=== PATIENT | male | born 1935 | race Caucasian/White ===

== ENCOUNTER 2016-10-18 10:40 | Emergency (ER) | payer MEDICARE ==
--- NOTE | 2016-10-18 11:10 | ERPHSYRPT ---
- History of Present Illness Time Seen by Provider: 10/18/16 11:06 Source: patient Exam Limitations: no limitations Physician History: 81-year-old white male with history of CVA hyperlipidemia atherosclerotic coronary artery disease and arthritis who is on blood thinners. Arrives with complaint of a laceration/possible skin tear to his right forearm occurred yesterday at 2:00 in the afternoon. Patient apparently was mowing that he put his arm up to block a branch and he received a laceration. He apparently lives at assisted living he states that it made put a dressing on the area right forearm he arrives with 2 large dressings on the right forearm which aren't tinted with blood but are not dripping. He has full range of motion to all of his extremities she does state he has chronic weakness of the right arm because of CVA he also has a history of arthritis and right shoulder surgery. Past medical history includes coronary vascular accident, hyperlipidemia, atherosclerotic coronary artery disease, arthritis Past surgical history includes right shoulder surgery CABG cataracts Occurred: yesterday (yesterday at 2:00 in the afternoon) Method of Injury: other (patient was mowing put his arm up to block branches and lacerated his arm) Quality: other (minimal pain) Severity of Pain-Max: none Severity of Pain-Current: none Extremities Pain Location: forearm: right Modifying Factors: Improves With: other (patient had dressing placed by aid yesterday at assisted living patient with the blood soaked dressing and assisted living staff reluctant to remove dressing today secondary to patient being on anticoagulants) Associated Symptoms: other (laceration /skin tear right forearm) Allergies/Adverse Reactions: No Known Drug Allergies Allergy (Verified 11/03/15 16:15) Home Medications: Aspirin 81 gm Chew [Baby Aspirin 81 mg Chew] 81 mg PO DAILY 06/10/14 [ History] Clopidogrel Bisulfate 75 mg [PLAVIX 75 MG Tablet] 75 mg PO DAILY 06/10/14 [History] Gabapentin [Neurontin] 300 mg PO TID 06/10/14 [History] Glyburide 5 mg [Micronase 5 MG] 5 mg PO DAILY 06/10/14 [History] Metoprolol Succinate 50 mg [Toprol Xl 50 MG] 25 mg PO BID 06/10/14 [ History] Simvastatin 20 mg PO DAILY 06/10/14 [History] Melatonin/Pyridoxine [Melatonin 3 mg Tablet] 3 mg PO HS 07/29/14 [History] Losartan Potassium [Cozaar] 25 mg PO DAILY 11/03/15 [History] Oxybutynin Chloride Xl 5 mg [Ditropan XL 5 MG] 5 mg PO BID 11/03/15 [ History] Pantoprazole Sodium [Protonix] 20 mg PO DAILY 11/03/15 [History] Tamsulosin HCl [Flomax] 0.4 mg PO UD 11/03/15 [History] Hx Tetanus, Diphtheria Vaccination/Date Given: Yes Hx Influenza Vaccination/Date Given: Yes Hx Pneumococcal Vaccination/Date Given: No - Review of Systems Constitutional: No Fever, No Chills Eyes: No Symptoms Ears, Nose, & Throat: No Symptoms Respiratory: No Cough, No Dyspnea Cardiac: No Chest Pain, No Edema, No Syncope Abdominal/Gastrointestinal: No Abdominal Pain, No Nausea, No Vomiting, No Diarrhea Genitourinary Symptoms: No Dysuria Musculoskeletal: Injury (patient with 6 cm skin tear /abrasion right proximal anterior forearm), No Arthralgias, No Back Pain, No Neck Pain, No Deformity, No Fall, No Joint Redness, No Joint Pain, No Joint Swelling, No Myalgias Skin: Other (6 cm skin tear/abrasion right proximal forearm), No Cellulitis, No Decubiti, No Induration, No Pruritis, No Rash, No Skin Lesions, No Dryness Neurological: No Dizziness, No Focal Weakness, No Sensory Changes Psychological: No Symptoms Endocrine: No Symptoms All Other Systems: Reviewed and Negative - Past Medical History Pertinent Past Medical History: Yes Neurological History: Stroke ENT History: Cataracts Cardiac History: High Cholesterol Respiratory History: No Pertinent History Endocrine Medical History: Diabetes Type II Musculoskeletal History: Arthritis GI Medical History: No Pertinent History History: No Pertinent History Psycho-Social History: No Pertinent History Male Reproductive Disorders: No Pertinent History - Past Surgical History Past Surgical History: Yes Neuro Surgical History: No Pertinent History Cardiac: CABG Respiratory: No Pertinent History Gastrointestinal: No Pertinent History Genitourinary: No Pertinent History Musculoskeletal: Orthopedic Surgery Male Surgical History: No Pertinent History Other Surgical History: R SHOULDER SURGERY, hip - Social History Smoking Status: Never smoker Exposure to second hand smoke: No Drug Use: none Patient Lives Alone: No - Nursing Vital Signs Nursing Vital Signs: Initial Vital Signs Temperature 99.2 F Temperature Source Oral Pulse Rate 61 Respiratory Rate 20 Blood Pressure [Left Arm] 164/61 Pain Intensity 0 - Physical Exam General Appearance: alert Eyes, Ears, Nose, Throat Exam: moist mucous membranes Neck Exam: non-tender, supple Cardiovascular/Respiratory Exam: chest non-tender Abdominal Exam: non-tender, No guarding Back Exam: normal inspection, No vertebral tenderness Elbow/Forearm Exam: normal inspection, non-tender, no evidence of injury, normal ROM, abrasions (6 cm skin tear/abrasion right proximal forearm had been previously dressed area cleaned wound edges approximated no erythema mild surrounding ecchymosis, radial and ulnar pulses equal and symmetrical 2/4 cardroom attendant equal and symmetrical 5/5 full range of motion right arm elbow wrist fingers good capillary refill all fingers sensation intact to all fingers) Wrist Exam: normal inspection, non-tender, no evidence of injury, normal ROM Hand Exam: normal inspection, non-tender, no evidence of injury, normal ROM Neuro/Tendon Exam: normal sensation, normal motor functions Mental Status Exam: alert, oriented x 3, cooperative Skin Exam: normal color, other (6 cm skin tear /abrasion right proximal forearm with surrounding ecchymosis area is not hot no drainage edges of wound approximated) SpO2 Interpretation: normal - Course Nursing assessment & vital signs reviewed: Yes Ordered Tests: Active Orders 24 hr Category Date Time Status Wound Care STAT Care 10/18/16 11:25 Active Medication Summary Discontinued Medications Generic Name Dose Route Start Last Admin Trade Name Freq PRN Reason Stop Dose Admin Bacitracin 0.9 gm 10/18/16 11:25 Baciguent Packet TP 10/18/16 11:26 STAT ONE Diphtheria/Tetanus/Acell Pertussis 0.5 ml 10/18/16 11:25 Adacel Vial IM 10/18/16 11:26 .ONCE ONE Diphtheria/Tetanus/Acell Pertussis Confirm 10/18/16 11:27 Adacel Vial Administered 10/18/16 11:28 Dose 0.5 ml IM .STK-MED ONE - Progress Progress: improved Progress Note: 10/18/16 11:20 This is a 81-year-old white male who was mowing yesterday and put his arm up to push branches out of the way. He has a 6 cm skin tear/abrasion to his right proximal forearm which was cleansed and dressing was applied by aides at the assisted living. Today he was noted to have blood which had saturated his dressing and staff at his assisted living were reluctant to remove dressing secondary to the patient being on blood thinners and they were afraid of bleeding. Patient's wound is examined he has a 6 cm /skin tear/abrasion on his right proximal forearm wound edges appear to be approximated and do not move easily. The wound is clean there is no signs of infection and there is no to minimal bleeding Will have nurse clean the patient's skin tear/abrasion on his right forearm apply bacitracin and dressing. Will uptake patient's DTaP. Will plan to have patient discharged went to be cleansed and bacitracin and Telfa dressing applied daily until healed. Patient is to follow-up with his family doctor. - Departure Time of Disposition: 11:23 Departure Disposition: Home Clinical Impression: Skin tear of right forearm without complication Qualifiers: Encounter type: initial encounter Qualified Code(s): S51.811A - Laceration without foreign body of right forearm, initial encounter Condition: Fair Critical Care Time: No Referrals: SAHARA TRIANA MD [Primary Care Provider] - Instructions: Care for a Laceration After Repair Additional Instructions: Return to assisted living. Skin tear to be cleanse, bacitracin and Telfa dressing applied daily until healed. Follow-up with your family doctor. Return for acute distress or for severe symptoms.
[2016-10-18] MEDS ORDERED: BACIGUENT PACKET TP ONE (11:25)
[2016-10-18] MEDS ORDERED: Adacel Vial IM ONE ×2 (11:25→11:27)
[2016-10-18 11:32] VITALS: O2SAT 98
[2016-10-18 11:54] VITALS: BP 162/48; PULSE 65
== END 2016-10-18 11:50 | disposition home or self-care (01) ==
LOC: ED 10:40
DX: S01.81XA Laceration without foreign body of other part of head, initial encounter (principal); W22.8XXA Striking against or struck by other objects, initial encounter; Y93.H2 Activity, gardening and landscaping; Z79.01 Long term (current) use of anticoagulants; E78.00 Pure hypercholesterolemia, unspecified; E11.9 Type 2 diabetes mellitus without complications; Z79.899 Other long term (current) drug therapy
CPT/HCPCS: 90471; 90715; 99282; A9270-GY

== ENCOUNTER 2017-05-04 12:34 | Observation (INO) | payer MEDICARE ==
[2017-05-04] MEDS ORDERED: Sodium Chloride 0.9% 1000 ML 1,000 ML IV STA (13:04)
[2017-05-04 13:14] LABS: BASOPHIL % 0.3 % (0.0-0.4); Eosinophil % 0.4 % (0.00-5.0); Granulocytes % 82.7 % (36.0-66.0); Lymphocytes % 11.5 % (24.0-44.0); Mean Cell Volume 90.1 fl (78-100); Mean Corpuscular Hemoglobin 30.3 pg (26-32); Mean Platelet Volume 11.5 fl (6-9.5); Monocytes % 5.1 % (0.0-12.0); Platelet Count 172 K/mm3 (150-450); Red Blood Count 5.58 M/mm3 (4.1-5.6); Red Cell Distribution Width 13.4 % (11.5-14.0); White Blood Count 9.2 K/mm3 (4.0-10.5)
--- NOTE | 2017-05-04 13:24 | ERPHSYRPT ---
- History of Present Illness Time Seen by Provider: 05/04/17 12:38 Source: patient, family (daughter) Exam Limitations: no limitations Patient Subjective Stated Complaint: pt states he has not been eating well, not able to swallow pills, weak, daughter states he has been fighting a virus for a week now, Triage Nursing Assessment: pt alert, resp easy, skin w.d pink,chest clear, coughing up green sputum Physician History: patient progressive deterioration 10-14 days; increased wekness; decreased appetite and activity; no feeling well; refusing meds; can swallow but doesn't want to take meds; cough non-productive; no travel; in a NH; wt loss Timing/Duration: week(s) (2), gradual onset, worse Severity: severe Modifying Factors: Worsens With: eating Associated Symptoms: loss of appetite, malaise, weakness Allergies/Adverse Reactions: No Known Drug Allergies Allergy (Verified 05/04/17 12:49) Home Medications: Aspirin 81 gm Chew [Baby Aspirin 81 mg Chew] 81 mg PO DAILY 06/10/14 [ History] Clopidogrel Bisulfate 75 mg [PLAVIX 75 MG Tablet] 75 mg PO DAILY 06/10/14 [History] Glyburide 5 mg [Micronase 5 MG] 5 mg PO DAILY 06/10/14 [History] Metoprolol Succinate 50 mg [Toprol Xl 50 MG] 25 mg PO BID 06/10/14 [ History] Simvastatin 20 mg PO DAILY 06/10/14 [History] Losartan Potassium [Cozaar] 25 mg PO DAILY 11/03/15 [History] Oxybutynin Chloride Xl 5 mg [Ditropan XL 5 MG] 5 mg PO BID 11/03/15 [ History] Pantoprazole Sodium [Protonix] 20 mg PO DAILY 11/03/15 [History] Gabapentin [Gabapentin] 300 mg TID 05/04/17 [History] Hx Tetanus, Diphtheria Vaccination/Date Given: Yes Hx Influenza Vaccination/Date Given: Yes Hx Pneumococcal Vaccination/Date Given: Yes Immunizations Up to Date: Yes - Review of Systems Constitutional: Malaise, Weakness, Weight Loss, No Fever, No Chills Eyes: No Symptoms Ears, Nose, & Throat: No Symptoms Respiratory: Cough, No Dyspnea, No Wheezing Cardiac: No Chest Pain, No Edema, No Palpitations, No Syncope Abdominal/Gastrointestinal: Nausea, No Abdominal Pain, No Vomiting, No Diarrhea , No Constipation Genitourinary Symptoms: No Symptoms Musculoskeletal: Arthralgias, No Back Pain, No Neck Pain, No Fall, No Injury, No Joint Pain Skin: No Symptoms Neurological: No Focal Weakness, No Headache, No Seizure, No Vertigo Psychological: No Symptoms Endocrine: Cold Intolerance, No Excessive Sweating, No Goiter Hematologic/Lymphatic: No Symptoms Immunological/Allergic: No Symptoms - Past Medical History Pertinent Past Medical History: Yes Neurological History: Stroke ENT History: Cataracts Cardiac History: High Cholesterol Respiratory History: No Pertinent History Endocrine Medical History: Diabetes Type II Musculoskeletal History: Arthritis GI Medical History: No Pertinent History History: No Pertinent History Psycho-Social History: No Pertinent History Male Reproductive Disorders: No Pertinent History - Past Surgical History Past Surgical History: Yes Neuro Surgical History: No Pertinent History Cardiac: CABG Respiratory: No Pertinent History Gastrointestinal: No Pertinent History Genitourinary: No Pertinent History Musculoskeletal: Orthopedic Surgery Male Surgical History: No Pertinent History Other Surgical History: R SHOULDER SURGERY, hip - Social History Smoking Status: Never smoker Exposure to second hand smoke: Yes Alcohol Use: None Drug Use: none Patient Lives Alone: No Significant Family History: no pertinent family hx - Nursing Vital Signs Nursing Vital Signs: Initial Vital Signs Temperature 97.9 F 05/04/17 12:42 Pulse Rate 87 05/04/17 12:42 Respiratory Rate 18 05/04/17 12:42 Blood Pressure 191/90 05/04/17 12:42 O2 Sat by Pulse Oximetry 97 05/04/17 12:42 Pain Scale Pain Intensity 0 - Physical Exam General Appearance: mild distress, alert, thin (almost cachectic) Eye Exam: PERRL/EOMI, eyes nml inspection, No photophobia Ears, Nose, Throat Exam: TMs normal, pharynx normal, dry mucous membranes, No tonsillar exudate Neck Exam: normal inspection, non-tender, supple, full range of motion, No meningismus, No carotid bruit, No JVD, No lymphadenopathy Respiratory Exam: normal breath sounds, lungs clear, airway intact, No respiratory distress, No crackles/rales, No rhonchi, No wheezing Cardiovascular Exam: regular rate/rhythm, normal heart sounds, normal peripheral pulses, capillary refill 2-3 sec, No murmur Gastrointestinal/Abdomen Exam: soft, normal bowel sounds, No tenderness, No guarding, No pulsatile mass, No rebound, No organomegaly Male Genitalia Exam: normal genitalia Rectal Exam: deferred Back Exam: normal inspection, normal range of motion, No CVA tenderness Extremity Exam: normal inspection, normal range of motion, No rivera's sign, No pedal edema Neurologic Exam: alert, oriented x 3, cooperative, peoplesoft crm developer II-XII nml as tested, normal mood/affect, sensation nml, No nml cerebellar function (too weak), No nml station & gait (too weak) Skin Exam: warm, dry, pale, other (poor tugor), No normal color, No rash, No petechiae Lymphatic Exam: No adenopathy SpO2 Interpretation: normal SpO2: 97 Oxygen Delivery: Room Air - Course Nursing assessment & vital signs reviewed: Yes EKG Interpreted by Me: RATE (77), Sinus Rhythm, NORMAL AXIS, NORMAL INTERVALS, NORMAL QRS, Non-specific ST Changes, Other (compared to 02/02/17) Rhythm Strip: Rate (76), Normal Sinus Rhythm - Radiology Exams Chest X-ray Interpretation: Reviewed by me, Teleradiologist Report, Negative Ordered Tests: Active Orders 24 hr Category Date Time Status Up With Assistance ROUTINE Activity 05/04/17 16:00 Ordered Admission/Status Order ROUTINE Care 05/04/17 16:00 Ordered Call Admit Doctor for Orders ON ADMISSION Care 05/04/17 16:01 Ordered Care Management Coordinator STAT Care 05/04/17 13:02 Active Code Status Order ROUTINE Care 05/04/17 16:00 Ordered EKG-ER Only STAT Care 05/04/17 13:02 Active Fall Protocol ROUTINE Care 05/04/17 16:01 Ordered IV Care Q6H Care 05/04/17 16:00 Ordered IV Insertion STAT Care 05/04/17 13:02 Active Orthostatic Vital Signs STAT Care 05/04/17 13:14 Active Edu Rivas, Apply ROUTINE Care 05/04/17 16:00 Ordered Telemetry ROUTINE Care 05/04/17 16:00 Ordered Weight,Daily 0600 Care 05/04/17 16:00 Ordered Cardiac Diet Diet 05/04/17 Dinner Ordered CHEST 1 VIEW (PORTABLE) Stat Exams 05/04/17 13:03 Completed BLOOD CULTURE Stat Lab 05/04/17 12:55 Received CBC W DIFF Stat Lab 05/04/17 13:18 Completed CMP Stat Lab 05/04/17 13:18 Completed CULTURE,URINE Stat Lab 05/04/17 15:00 Received Lactic Acid Stat Lab 05/04/17 13:33 Completed Lactic Acid Stat Lab 05/04/17 15:45 Completed MAGNESIUM Stat Lab 05/04/17 13:18 Completed NT PRO BNP Stat Lab 05/04/17 13:18 Completed PROTIME WITH INR Stat Lab 05/04/17 13:18 Completed TROPONIN Q3H Lab 05/04/17 13:18 Completed TROPONIN Q3H Lab 05/04/17 16:15 Ordered TROPONIN Q3H Lab 05/04/17 19:15 Ordered TROPONIN Q3H Lab 05/04/17 22:15 Ordered TROPONIN Q3H Lab 05/05/17 01:15 Ordered UA W/ MICROSCOPIC Stat Lab 05/04/17 15:00 Completed Transfer Order Routine Transfer 05/04/17 Ordered Medication Summary Generic Name Dose Route Start Last Admin Trade Name Freq PRN Reason Stop Dose Admin Sodium Chloride 1,000 mls @ 100 mls/hr 05/04/17 13:15 05/04/17 14:05 Sodium Chloride 0.9% 1000 Ml IV 06/03/17 13:14 999 mls/hr .Q10H POOJA Infusion Sodium Chloride 1,000 mls @ 250 mls/hr 05/04/17 13:04 05/04/17 13:46 Sodium Chloride 0.9% 1000 Ml IV 05/04/17 17:03 999 mls/hr .Q4H STA Infusion Lab/Rad Data: Laboratory Result Diagrams 05/04/17 13:18 05/04/17 13:18 Laboratory Results 05/04/17 05/04/17 05/04/17 Range/Units 15:45 15:00 13:33 WBC (4.0-10.5) K/mm3 RBC (4.1-5.6) M/mm3 Hgb (12.5-18.0) gm/dl Hct (42-50) % MCV (78-100) fl MCH (26-32) pg MCHC (32-36) g/dl RDW (11.5-14.0) % Plt Count (150-450) K/mm3 MPV (6-9.5) fl Gran % (36.0-66.0) % Lymphocytes % (24.0-44.0) % Monocytes % (0.0-12.0) % Eosinophils % (0.00-5.0) % Basophils % (0.0-0.4) % Basophils # (0-0.4) INR (0.8-3.0) Sodium (136-145) mEq/L Potassium (3.5-5.1) mEq/L Chloride (98-107) mEq/L Carbon Dioxide (21-32) mEq/L Anion Gap (5-15) MEQ/L BUN (9-20) mg/dL Creatinine (0.55-1.30) mg/dl Estimated GFR ML/MIN Glucose (70-110) MG/DL Lactic Acid 1.4 2.0 (0.4-2.0) Calcium (8.5-10.1) mg/dL Magnesium (1.8-2.4) mg/dL Total Bilirubin (0.2-1.0) mg/dL AST (15-37) U/L ALT (12-78) U/L Alkaline Phosphatase (46-116) U/L Troponin I (0.000-0.056) ng/ml NT-Pro-B Natriuret Pep (0-450) pg/ml Serum Total Protein (6.4-8.2) gm/dL Albumin (3.4-5.0) g/dL Ur Collection Type VOID Urine Color YELLOW (YELLOW) Urine Appearance CLEAR (CLEAR) Urine pH 2 (5-6) Ur Specific [place] 1.020 (1.005-1.025) Urine Protein 36+ (Negative) Urine Ketones MODERATE (NEGATIVE) Urine Blood 50 (0-5) Rai/ul Urine Nitrite NEGATIVE (NEGATIVE) Urine Bilirubin NEGATIVE (NEGATIVE) Urine Urobilinogen NORMAL (0-1) mg/dL Ur Leukocyte Esterase TRACE (NEGATIVE) Urine Microscopic RBC 0-2 (0-2) /HPF Urine Microscopic WBC 0-2 (0-5) /HPF Ur Epithelial Cells RARE (FEW) /HPF Urine Bacteria FEW (NEGATIVE) /HPF Urine Culture Reflexed YES (NO) Urine Glucose 100 (NEGATIVE) mg/dL Influenza Type A Ag (NEGATIVE) Influenza Type B Ag (NEGATIVE) RSV (PCR) (Negative) Specimen Received 05/01/17 1510 05/04/17 05/04/17 05/04/17 Range/Units 13:18 13:18 13:18 WBC (4.0-10.5) K/mm3 RBC (4.1-5.6) M/mm3 Hgb (12.5-18.0) gm/dl Hct (42-50) % MCV (78-100) fl MCH (26-32) pg MCHC (32-36) g/dl RDW (11.5-14.0) % Plt Count (150-450) K/mm3 MPV (6-9.5) fl Gran % (36.0-66.0) % Lymphocytes % (24.0-44.0) % Monocytes % (0.0-12.0) % Eosinophils % (0.00-5.0) % Basophils % (0.0-0.4) % Basophils # (0-0.4) INR 1.27 (0.8-3.0) Sodium (136-145) mEq/L Potassium (3.5-5.1) mEq/L Chloride (98-107) mEq/L Carbon Dioxide (21-32) mEq/L Anion Gap (5-15) MEQ/L BUN (9-20) mg/dL Creatinine (0.55-1.30) mg/dl Estimated GFR ML/MIN Glucose (70-110) MG/DL Lactic Acid (0.4-2.0) Calcium (8.5-10.1) mg/dL Magnesium (1.8-2.4) mg/dL Total Bilirubin (0.2-1.0) mg/dL AST (15-37) U/L ALT (12-78) U/L Alkaline Phosphatase (46-116) U/L Troponin I < 0.017 (0.000-0.056) ng/ml NT-Pro-B Natriuret Pep (0-450) pg/ml Serum Total Protein (6.4-8.2) gm/dL Albumin (3.4-5.0) g/dL Ur Collection Type Urine Color (YELLOW) Urine Appearance (CLEAR) Urine pH (5-6) Ur Specific [place] (1.005-1.025) Urine Protein (Negative) Urine Ketones (NEGATIVE) Urine Blood (0-5) Rai/ul Urine Nitrite (NEGATIVE) Urine Bilirubin (NEGATIVE) Urine Urobilinogen (0-1) mg/dL Ur Leukocyte Esterase (NEGATIVE) Urine Microscopic RBC (0-2) /HPF Urine Microscopic WBC (0-5) /HPF Ur Epithelial Cells (FEW) /HPF Urine Bacteria (NEGATIVE) /HPF Urine Culture Reflexed (NO) Urine Glucose (NEGATIVE) mg/dL Influenza Type A Ag NEGATIVE (NEGATIVE) Influenza Type B Ag NEGATIVE (NEGATIVE) RSV (PCR) NEGATIVE (Negative) Specimen Received 05/04/17 05/04/17 Range/Units 13:18 13:18 WBC 9.2 (4.0-10.5) K/mm3 RBC 5.58 (4.1-5.6) M/mm3 Hgb 16.9 (12.5-18.0) gm/dl Hct 50.3 H (42-50) % MCV 90.1 (78-100) fl MCH 30.3 (26-32) pg MCHC 33.6 (32-36) g/dl RDW 13.4 (11.5-14.0) % Plt Count 172 (150-450) K/mm3 MPV 11.5 H (6-9.5) fl Gran % 82.7 H (36.0-66.0) % Lymphocytes % 11.5 L (24.0-44.0) % Monocytes % 5.1 (0.0-12.0) % Eosinophils % 0.4 (0.00-5.0) % Basophils % 0.3 (0.0-0.4) % Basophils # 0.03 (0-0.4) INR (0.8-3.0) Sodium 142 (136-145) mEq/L Potassium 4.3 (3.5-5.1) mEq/L Chloride 105 (98-107) mEq/L Carbon Dioxide 24.8 (21-32) mEq/L Anion Gap 16.9 H (5-15) MEQ/L BUN 23 H (9-20) mg/dL Creatinine 1.75 H (0.55-1.30) mg/dl Estimated GFR 40 ML/MIN Glucose 177 H (70-110) MG/DL Lactic Acid (0.4-2.0) Calcium 9.8 (8.5-10.1) mg/dL Magnesium 1.9 (1.8-2.4) mg/dL Total Bilirubin 1.10 H (0.2-1.0) mg/dL AST 24 (15-37) U/L ALT 19 (12-78) U/L Alkaline Phosphatase 75 (46-116) U/L Troponin I (0.000-0.056) ng/ml NT-Pro-B Natriuret Pep 467 H (0-450) pg/ml Serum Total Protein 7.7 (6.4-8.2) gm/dL Albumin 4.0 (3.4-5.0) g/dL Ur Collection Type Urine Color (YELLOW) Urine Appearance (CLEAR) Urine pH (5-6) Ur Specific [place] (1.005-1.025) Urine Protein (Negative) Urine Ketones (NEGATIVE) Urine Blood (0-5) Rai/ul Urine Nitrite (NEGATIVE) Urine Bilirubin (NEGATIVE) Urine Urobilinogen (0-1) mg/dL Ur Leukocyte Esterase (NEGATIVE) Urine Microscopic RBC (0-2) /HPF Urine Microscopic WBC (0-5) /HPF Ur Epithelial Cells (FEW) /HPF Urine Bacteria (NEGATIVE) /HPF Urine Culture Reflexed (NO) Urine Glucose (NEGATIVE) mg/dL Influenza Type A Ag (NEGATIVE) Influenza Type B Ag (NEGATIVE) RSV (PCR) (Negative) Specimen Received reviewed - Progress Progress: improved (with fluids), re-examined (after fluids and lab) Progress Note: 05/04/17 13:24 OSVS show OS hypotension needs assistance and became symptomatic; will give IV fluid bolus and recheck; FSBS 149; gave patietn 6 oz water and drank ok with straw. 05/04/17 13:41 rechecked after first 250 cc bolus and doing ok; lungs clear; no sob or jvd will continue fluid bolus; EKG; cbc lactate and CXR ok; daughter at bedside; will recheck and monitor 05/04/17 14:31 BS up 177; BUN up 23 and Cr at 1.75; lytes ok; T Bili up 1.10; pBNP = 467 anion gap 16.9; tolerating IV gfluid bolus; awaiting labs and ua 05/04/17 15:57 Dr Brenner consulted and will admit to OBs for further hydration and evaluation; patient and family notified and concur Discussed with : Jordin (consulted and will admit to obs) Will see patient in: hospital (observation) Counseled pt/family regarding: lab results, diagnosis, need for follow-up, rad results - Departure Time of Disposition: 15:58 Departure Disposition: Observation Clinical Impression: Orthostatic hypotension, Dehydration Condition: Serious Critical Care Time: No Referrals: SAHARA TRIANA MD [Primary Care Provider] - ADRIÁN BRENNER [ACTIVE STAFF] -
--- NOTE | 2017-05-04 13:34 | XRAY ---
Indication: Cough and weakness. Comparison: November 26, 2016. Portable chest remains clear with a few incidental calcified granulomas. Heart and mediastinal structures within normal limits again with previous CABG surgery. Bony thorax intact again with mild degenerative changes. Impression: Stable nonacute chest with chronic features.
[2017-05-04 13:43] LABS: INR 1.27 (0.8-3.0); PROTIME 14.2 SECONDS (8.83-12.87)
[2017-05-04 13:59] LABS: ANION GAP 16.9 MEQ/L (5-15); BILIRUBIN,TOTAL 1.1 mg/dL (0.2-1.0); Carbon Dioxide 24.8 mEq/L (21-32); MAGNESIUM 1.9 mg/dL (1.8-2.4); Potassium 4.3 mEq/L (3.5-5.1); Total Protein 7.7 gm/dL (6.4-8.2)
[2017-05-04] MEDS: Sodium Chloride 0.9% 1000 ML 1,000 ML IV SCH (14:00)
[2017-05-04 15:52] LABS: Blood 50 Ery/ul (0-5); Collection Type VOID; Leukocyte Esterase TRACE (NEGATIVE)
[2017-05-04 15:53] LABS: ADD URINE CULTURE? YES (NO); Bacteria FEW /HPF (NEGATIVE); COMPLETE URINE MICROSCOPIC? YES; Epithelial Cells RARE /HPF (FEW); WBC 0-2 /HPF (0-5)
[2017-05-04] MEDS ORDERED: Sodium Chloride 0.9% 1000 ML 1,000 ML IV SCH (16:00)
[2017-05-04] MEDS ORDERED: TYLENOL 325 MG PO PRN (20:21)
[2017-05-04] MEDS ORDERED: Ditropan 5 MG ONE (20:51)
[2017-05-04] MEDS: Ditropan XL 5 MG PO SCH (22:16)
[2017-05-04] MEDS: ZOCOR 20MG PO SCH (22:16)
[2017-05-04] MEDS: NEURONTIN 300 MG PO SCH (22:16)
[2017-05-04] MEDS: Protonix 40MG Tablet PO SCH (22:16)
[2017-05-05] MEDS: Sodium Chloride 0.9% 1000 ML 1,000 ML IV SCH ×2 (02:58→13:25)
--- NOTE | 2017-05-05 09:09 | PCM.HP ---
History of Present Illness - Chief Complaint Chief Complaint: ORTHOSTATIC HYPOTENSION, DEHYDRATION, RENAL FAILURE History of Present Illness: is a 81 year old male who lives in assisted living who has progressively been more weak and had poor po intake, was having swallowing difficulty. he had been refusing meds, having nonproductive cough. - Review of Systems Constitutional: No Fever, No Chills Respiratory: Cough, No Short Of Breath Cardiac: No Chest Pain, No Edema, No Syncope Abdominal/Gastrointestinal: No Abdominal Pain, No Nausea, No Vomiting, No Diarrhea Skin: No Rash All Other Systems: Reviewed and Negative Medications & Allergies Home Medications: Home Medication List Aspirin 81 gm Chew [Baby Aspirin 81 mg Chew] 81 mg PO DAILY 06/10/14 [ History Confirmed 05/04/17] Clopidogrel Bisulfate 75 mg [PLAVIX 75 MG Tablet] 75 mg PO DAILY 06/10/14 [History Confirmed 05/04/17] Glyburide 5 mg [Micronase 5 MG] 5 mg PO DAILY 06/10/14 [History Confirmed 05/04/17] Metoprolol Succinate 50 mg [Toprol Xl 50 MG] 25 mg PO BID 06/10/14 [ History Confirmed 05/04/17] Simvastatin 20 mg PO DAILY 06/10/14 [History Confirmed 05/04/17] Losartan Potassium [Cozaar] 25 mg PO DAILY 11/03/15 [History Confirmed 05/04/17] Oxybutynin Chloride Xl 5 mg [Ditropan XL 5 MG] 5 mg PO BID 11/03/15 [ History Confirmed 05/04/17] Pantoprazole Sodium [Protonix] 40 mg PO BID 11/03/15 [History Confirmed 05/04/17 ] Acetaminophen 325 mg [Tylenol 325 mg] 650 mg PO Q4HPRN PRN 05/04/17 [ History Confirmed 05/04/17] Gabapentin [Gabapentin] 300 mg PO TID 05/04/17 [History Confirmed 05/04/17] Allergies/Adverse Reactions: Allergies Allergy/AdvReac Type Severity Reaction Status Date / Time No Known Drug Allergies Allergy Verified 05/04/17 12:49 - Past Medical History Past Medical History: Yes Neurological History: Stroke ENT History: Cataracts Cardiac History: High Cholesterol, Hypertension Respiratory History: No Pertinent History Endocrine Medical History: Diabetes Type II Musculoskelatal History: Arthritis GI Medical History: No Pertinent History History: No Pertinent History Pyscho-Social History: No Pertinent History Male Reproductive Disorders: No Pertinent History - Past Surgical History Past Surgical History: Yes Neuro Surgical History: No Pertinent History Cardiac History: CABG Respiratory Surgery: No Pertinent History GI Surgical History: No Pertinent History Genitourinary Surgical Hx: No Pertinent History Musculskeletal Surgical Hx: Orthopedic Surgery Male Surgical History: No Pertinent History Other Surgical History: R SHOULDER SURGERY, LEFT hip - Social History Smoking Status: Never smoker Exposure to second hand smoke: No Alcohol: None Drug Use: none Significant Family History: no pertinent family hx - Physical Exam Vital Signs: Vital Signs - 24 hr Temp Pulse Resp BP Pulse Ox 05/05/17 07:32 98.4 F 72 18 187/86 96 05/05/17 04:10 98.0 F 73 15 155/72 94 L 05/05/17 00:10 98.8 F 80 16 154/76 94 L 05/04/17 20:00 98.5 F 71 12 175/83 97 05/04/17 17:49 98.4 F 76 18 189/85 97 05/04/17 17:19 98.4 F 76 18 189/85 97 05/04/17 17:09 98.4 F 76 18 189/85 97 05/04/17 16:30 98.4 F 76 18 189/85 97 05/04/17 16:02 97 05/04/17 15:40 98.4 F 76 18 189/85 97 05/04/17 14:52 80 14 165/75 97 05/04/17 13:59 78 20 172/91 97 05/04/17 13:41 78 18 166/104 99 05/04/17 13:30 74 22 149/86 97 05/04/17 12:42 97.9 F 87 18 191/90 97 General Appearance: no apparent distress, alert, thin (frail) Respiratory Exam: normal breath sounds, lungs clear, No respiratory distress Cardiovascular Exam: regular rate/rhythm, normal heart sounds, normal peripheral pulses Gastrointestinal/Abdomen Exam: soft, normal bowel sounds, No tenderness, No mass Extremity Exam: normal inspection, normal range of motion, pelvis stable Skin Exam: normal color, warm, dry, No rash Results - Labs Lab/Micro Results: Lab Results-Last 24 Hours 05/04/17 05/04/17 Range/Units 19:05 22:15 Troponin I 0.019 0.021 (0.000-0.056) ng/ml Assessment/Plan (1) Orthostatic hypotension Current Visit: Yes Status: Acute Assessment & Plan: symptoms improved, patient feeling better today. Code(s): I95.1 - ORTHOSTATIC HYPOTENSION (2) Dehydration Current Visit: Yes Status: Acute Assessment & Plan: feeling better, will repeat labs in the am, if continues to eat well and have no symptoms may be able to discharge home tomorrow Code(s): E86.0 - DEHYDRATION
[2017-05-05] MEDS ORDERED: BABY ASPIRIN 81 MG CHEW PO SCH (10:00)
[2017-05-05] MEDS: NEURONTIN 300 MG PO SCH ×3 (10:51→21:49)
[2017-05-05] MEDS: Ditropan XL 5 MG PO SCH ×2 (10:51→21:50)
[2017-05-05] MEDS: PLAVIX 75 MG Tablet PO SCH (10:51)
[2017-05-05] MEDS: Micronase 5 MG PO SCH (10:51)
[2017-05-05] MEDS: ECOTRIN 81 MG PO SCH (10:52)
[2017-05-05] MEDS: Protonix 40MG Tablet PO SCH ×2 (10:52→21:50)
[2017-05-05] MEDS: ZOCOR 20MG PO SCH (21:50)
[2017-05-06 05:44] VITALS: O2SAT 96
[2017-05-06 06:06] LABS: BASOPHIL % 0.1 % (0.0-0.4); Eosinophil % 1.4 % (0.00-5.0); Granulocytes % 70.3 % (36.0-66.0); Lymphocytes % 20.9 % (24.0-44.0); Mean Cell Volume 89.5 fl (78-100); Mean Corpuscular Hemoglobin 29.9 pg (26-32); Mean Platelet Volume 11.3 fl (6-9.5); Monocytes % 7.3 % (0.0-12.0); Platelet Count 149 K/mm3 (150-450); Red Blood Count 5.25 M/mm3 (4.1-5.6); Red Cell Distribution Width 13.2 % (11.5-14.0); White Blood Count 7.4 K/mm3 (4.0-10.5)
[2017-05-06 06:16] LABS: ANION GAP 13.6 MEQ/L (5-15); Carbon Dioxide 26.4 mEq/L (21-32); Potassium 3.7 mEq/L (3.5-5.1)
[2017-05-06 07:23] VITALS: BP 140/72; PULSE 113
--- NOTE | 2017-05-06 07:58 | PCM.NOTE ---
Date and Time: 05/06/17 0757 Subjective Assessment: patient reports some improvement in his symptoms, still profoundly weak but eating and drinking. Objective Exam General Appearance: no apparent distress, alert Skin Exam: normal color, warm, dry Respiratory Exam: normal breath sounds, lungs clear, No respiratory distress Cardiovascular Exam: regular rate/rhythm, normal heart sounds Gastrointestinal/Abdomen Exam: soft, No tenderness, No mass Extremity Exam: normal inspection, normal range of motion OBJECTIVE DATA Vital Signs: Vital Signs - 24 hr Temp Pulse Resp BP Pulse Ox 05/06/17 07:21 97.9 F 113 H 18 140/72 96 05/06/17 04:00 97.8 F 65 14 147/70 96 05/06/17 00:15 97.4 F 56 L 14 132/60 95 05/05/17 20:00 97.9 F 58 L 20 116/66 97 05/05/17 16:00 97.6 F 54 L 18 149/70 97 05/05/17 11:03 97.3 F 57 L 18 143/68 96 Pain Assessment - Last Documented Pain Intensity 0 Pain Scale Used 0-10 Pain Scale Intake and Output: Intake & Output 05/03/17 05/04/17 05/05/17 05/06/17 11:59 11:59 11:59 11:59 Intake Total 1528 3443 Output Total 450 500 Balance 1078 2943 Weight 69.201 kg 69.4 kg Lab Results: Lab Results-Last 24 Hours 05/06/17 05/06/17 Range/Units 05:16 05:16 WBC 7.4 (4.0-10.5) K/mm3 RBC 5.25 (4.1-5.6) M/mm3 Hgb 15.7 (12.5-18.0) gm/dl Hct 47.0 (42-50) % MCV 89.5 (78-100) fl MCH 29.9 (26-32) pg MCHC 33.4 (32-36) g/dl RDW 13.2 (11.5-14.0) % Plt Count 149 L (150-450) K/mm3 MPV 11.3 H (6-9.5) fl Gran % 70.3 H (36.0-66.0) % Lymphocytes % 20.9 L (24.0-44.0) % Monocytes % 7.3 (0.0-12.0) % Eosinophils % 1.4 (0.00-5.0) % Basophils % 0.1 (0.0-0.4) % Basophils # 0.01 (0-0.4) Sodium 145 (136-145) mEq/L Potassium 3.7 (3.5-5.1) mEq/L Chloride 109 H (98-107) mEq/L Carbon Dioxide 26.4 (21-32) mEq/L Anion Gap 13.6 (5-15) MEQ/L BUN 20 (9-20) mg/dL Creatinine 1.43 H (0.55-1.30) mg/dl Estimated GFR 50 ML/MIN Glucose 55 L (70-110) MG/DL Calcium 9.2 (8.5-10.1) mg/dL Assessment/Plan (1) Orthostatic hypotension Current Visit: Yes Status: Acute Assessment & Plan: bp stable at this time Code(s): I95.1 - ORTHOSTATIC HYPOTENSION (2) Dehydration Current Visit: Yes Status: Acute Assessment & Plan: improved with hydration Code(s): E86.0 - DEHYDRATION
[2017-05-06] MEDS: Sodium Chloride 0.9% 1000 ML 1,000 ML IV SCH (09:36)
[2017-05-06] MEDS: PLAVIX 75 MG Tablet PO SCH (09:40)
[2017-05-06] MEDS: NEURONTIN 300 MG PO SCH (09:40)
[2017-05-06] MEDS: ECOTRIN 81 MG PO SCH (09:40)
[2017-05-06] MEDS: Ditropan XL 5 MG PO SCH (09:40)
[2017-05-06] MEDS: Protonix 40MG Tablet PO SCH (09:41)
[2017-05-06] MEDS: Micronase 5 MG PO SCH (10:38)
== END 2017-05-06 11:05 | disposition home health service (06) ==
LOC: ED 12:34 → MED SURG 17:00
PROVIDERS: ADMIT Family Medicine; ATTEND Family Medicine
DX: I95.1 Orthostatic hypotension (principal); E86.0 Dehydration; I10 Essential (primary) hypertension; Z86.73 Personal history of transient ischemic attack (TIA), and cerebral infarction without residual deficits; E11.9 Type 2 diabetes mellitus without complications; M19.90 Unspecified osteoarthritis, unspecified site; Z79.899 Other long term (current) drug therapy
CPT/HCPCS: 36000; 36415; 71010; 80048; 80053; 81000; 82962; 83605; 83735; 83880; 84484; 85025; 85610; 87040; 87086; 87631; 93005; 93041; 99285; G0378; A9270-GY

== ENCOUNTER 2017-07-15 17:50 | Emergency (ER) | payer MEDICARE ==
[2017-07-15 18:11] VITALS: O2SAT 97
[2017-07-15 19:40] LABS: BASOPHIL % 0.3 % (0.0-0.4); Basophil (Absolute #) 0.02 (0-0.4); Eosinophil % 1.2 % (0.00-5.0); Eosinophil (Absolute #) 0.09 (0-0.5); Granulocyte Absolute (ANC) 5.54 (1.4-6.9); Granulocytes % 72.3 % (36.0-66.0); Hematocrit 47.5 % (42-50); Lymphocyte (Absolute #) 1.52 (1.0-4.6); Lymphocytes % 19.9 % (24.0-44.0); Mean Cell Volume 91.2 fl (78-100); Mean Corpuscular Hemoglobin 30.7 pg (26-32); Mean Corpuscular Hgb Concent. 33.7 g/dl (32-36); Mean Platelet Volume 11.3 fl (6-9.5); Monocyte (Absolute #) 0.48 (0.0-1.3); Monocytes % 6.3 % (0.0-12.0); Platelet Count 159 K/mm3 (150-450); Red Blood Count 5.21 M/mm3 (4.1-5.6); Red Cell Distribution Width 13.3 % (11.5-14.0); White Blood Count 7.7 K/mm3 (4.0-10.5)
[2017-07-15 19:56] LABS: Appearance CLEAR (CLEAR); Bilirubin NEGATIVE (NEGATIVE); Blood NEGATIVE Ery/ul (0-5); Glucose 100 mg/dL (NEGATIVE); Ketones NEGATIVE (NEGATIVE); Leukocyte Esterase NEGATIVE (NEGATIVE); Nitrite NEGATIVE (NEGATIVE); Protein,Urine Dip 30 (Negative); Urobilinogen NORMAL mg/dL (0-1)
[2017-07-15 20:00] LABS: INR 1.18 (0.8-3.0)
[2017-07-15 20:01] LABS: Bacteria RARE /HPF (NEGATIVE); Epithelial Cells FEW /HPF (FEW); WBC 0-2 /HPF (0-5)
[2017-07-15 20:03] LABS: PTT 35.7 SECONDS (24.1-36.1)
[2017-07-15 20:05] LABS: ALBUMIN 4.1 g/dl (3.5-5.0); ANION GAP 15.7 MEQ/L (5-15); BILIRUBIN,TOTAL 0.6 mg/d? (0.2-1.3); Calcium 9.7 mg/dL (8.4-10.2); Creatinine 1 1.65 mg/dl (0.66-1.25); Potassium 4.4 mmol/L (3.5-5.1)
--- NOTE | 2017-07-15 20:29 | ERPHSYRPT ---
- History of Present Illness Time Seen by Provider: 07/15/17 18:36 Source: patient, family (daughter), EMS Patient Subjective Stated Complaint: stated he always has pain/numbness in right side HX CVA 14 years ago. while walking down to dining hunter at [facility] the pain got so bad in his right leg that he couldn't walk any further. 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 resp easy, c/o pain 11/16 Physician History: CC: pain right side of body Hx: 81 y/o patient of Dr Triana. He was in the hospital in April for dehydration and has not fully recovered. Remote old stroke causing chronic right sided weakness. 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 He uses a walker at Assisted Living. He was going to supper and felt worsened pain in the right side from his big toe to his right shoulder. No chest or back pain. He had to rest. They NH thought he had numbness in the right side so sent him in the ambulance. He really denies new weakness and is unsure about numbness. Mostly had pain which is now gone. Mild headache. Feels better now. No fall or injury. Timing/Duration: today (before supper) Allergies/Adverse Reactions: No Known Drug Allergies Allergy (Verified 05/04/17 12:49) Home Medications: Aspirin 81 gm Chew [Baby Aspirin 81 mg Chew] 81 mg PO DAILY 06/10/14 [ History] Clopidogrel Bisulfate 75 mg [PLAVIX 75 MG Tablet] 75 mg PO DAILY 06/10/14 [History] Metoprolol Succinate 50 mg [Toprol Xl 50 MG] 25 mg PO BID 06/10/14 [ History] Simvastatin 20 mg PO DAILY 06/10/14 [History] Losartan Potassium [Cozaar] 25 mg PO DAILY 11/03/15 [History] Oxybutynin Chloride Xl 5 mg [Ditropan XL 5 MG] 5 mg PO BID 11/03/15 [ History] Pantoprazole Sodium [Protonix] 40 mg PO BID 11/03/15 [History] Acetaminophen 325 mg [Tylenol 325 mg] 650 mg PO Q4HPRN PRN 05/04/17 [ History] Gabapentin 300 mg PO TID 05/04/17 [History] Hx Tetanus, Diphtheria Vaccination/Date Given: Yes Hx Influenza Vaccination/Date Given: Yes Hx Pneumococcal Vaccination/Date Given: Yes Immunizations Up to Date: Yes - Review of Systems Constitutional: Weakness, No Fever, No Chills Eyes: No Symptoms Ears, Nose, & Throat: No Symptoms Respiratory: No Cough, No Dyspnea Cardiac: No Chest Pain Abdominal/Gastrointestinal: No Abdominal Pain, No Nausea, No Vomiting Genitourinary Symptoms: No Dysuria Skin: No Rash Neurological: Focal Weakness (chronic right sided since prior stroke unchange), Headache (mild), Parasthesia (?), No Dizziness All Other Systems: Reviewed and Negative - Past Medical History Pertinent Past Medical History: Yes Neurological History: Stroke ENT History: Cataracts Cardiac History: High Cholesterol, Hypertension Respiratory History: No Pertinent History Endocrine Medical History: Diabetes Type II Musculoskeletal History: Arthritis GI Medical History: No Pertinent History History: No Pertinent History Psycho-Social History: No Pertinent History Male Reproductive Disorders: No Pertinent History - Past Surgical History Past Surgical History: Yes Neuro Surgical History: No Pertinent History Cardiac: CABG Respiratory: No Pertinent History Gastrointestinal: No Pertinent History Genitourinary: No Pertinent History Musculoskeletal: Orthopedic Surgery Male Surgical History: No Pertinent History Other Surgical History: R SHOULDER SURGERY, LEFT hip - Social History Smoking Status: Never smoker Exposure to second hand smoke: No Alcohol Use: None Drug Use: none Patient Lives Alone: No Significant Family History: no pertinent family hx - Nursing Vital Signs Nursing Vital Signs: Initial Vital Signs Pulse Rate 77 07/15/17 17:50 Respiratory Rate 18 07/15/17 17:50 Blood Pressure 200/90 07/15/17 17:50 O2 Sat by Pulse Oximetry 97 07/15/17 17:50 Pain Scale Pain Intensity [] 7 Pain Intensity 7 - Physical Exam General Appearance: alert Eye Exam: PERRL/EOMI Ears, Nose, Throat Exam: moist mucous membranes Neck Exam: normal inspection, non-tender, supple Respiratory Exam: normal breath sounds Cardiovascular Exam: regular rate/rhythm Gastrointestinal/Abdomen Exam: soft, No tenderness, No distention Male Genitalia Exam: normal genitalia Back Exam: normal inspection Neurologic Exam: alert, oriented x 3, cooperative, motor deficits (right arm and leg which daughter reports stable and unchanged, right facial palsy mild,) Skin Exam: warm, dry SpO2 Interpretation: normal SpO2: 97 Oxygen Delivery: Room Air Comments: 07/15/17 20:31 no point tender except maybe foot, no swelling in the foot, no warmth, no redness - Course Nursing assessment & vital signs reviewed: Yes EKG Interpreted by Me: RATE (72), Sinus Rhythm, NORMAL AXIS, NORMAL INTERVALS ( QTc 409), NORMAL QRS, NORMAL ST-T - Radiology Exams cxr X-ray Interpretation: Reviewed by me (post sternotomy, COPD, no acute) Ordered Tests: Active Orders 24 hr Category Date Time Status Clean Catch Urine Specimen STAT Care 07/15/17 18:50 Active EKG-ER Only STAT Care 07/15/17 18:50 Active CHEST 1 VIEW (PORTABLE) Stat Exams 07/15/17 18:50 Taken HEAD WITHOUT CONTRAST [CT] Stat Exams 07/15/17 18:50 Taken CBC W DIFF Stat Lab 07/15/17 19:37 Completed CMP Stat Lab 07/15/17 19:37 Completed CULTURE,URINE Stat Lab 07/15/17 19:37 Received PROTIME WITH INR Stat Lab 07/15/17 19:37 Completed PTT Stat Lab 07/15/17 19:37 Completed UA W/ MICROSCOPIC Stat Lab 07/15/17 19:37 Completed Lab/Rad Data: Laboratory Result Diagrams 07/15/17 19:37 07/15/17 19:37 Laboratory Results 07/15/17 07/15/17 07/15/17 Range/Units 19:37 19:37 19:37 WBC 7.7 (4.0-10.5) K/mm3 RBC 5.21 (4.1-5.6) M/mm3 Hgb 16.0 (12.5-18.0) gm/dl Hct 47.5 (42-50) % MCV 91.2 (78-100) fl MCH 30.7 (26-32) pg MCHC 33.7 (32-36) g/dl RDW 13.3 (11.5-14.0) % Plt Count 159 (150-450) K/mm3 MPV 11.3 H (6-9.5) fl Gran % 72.3 H (36.0-66.0) % Lymphocytes % 19.9 L (24.0-44.0) % Monocytes % 6.3 (0.0-12.0) % Eosinophils % 1.2 (0.00-5.0) % Basophils % 0.3 (0.0-0.4) % Basophils # 0.02 (0-0.4) INR 1.18 (0.8-3.0) APTT 35.7 (24.1-36.1) SECONDS Sodium 142 (137-145) mmol/L Potassium 4.4 (3.5-5.1) mmol/L Chloride 103 (98-107) mEq/L Carbon Dioxide 28 (22-30) mmol/L Anion Gap 15.7 H (5-15) MEQ/L BUN 27 H (9-20) mg/dl Creatinine 1.65 H (0.66-1.25) mg/dl Estimated GFR 43 ML/MIN Glucose 217 H (74-106) mg/dL Calcium 9.7 (8.4-10.2) mg/dL Total Bilirubin 0.60 (0.2-1.3) mg/d? AST 21 (17-59) U/L ALT 17 (0-50) U/L Alkaline Phosphatase 85 (38-126) U/L Serum Total Protein 7.0 (6.3-8.2) mg/dl Albumin 4.1 (3.5-5.0) g/dl Ur Collection Type Urine Color (YELLOW) Urine Appearance (CLEAR) Urine pH (5-6) Ur Specific [place] (1.005-1.025) Urine Protein (Negative) Urine Ketones (NEGATIVE) Urine Blood (0-5) Rai/ul Urine Nitrite (NEGATIVE) Urine Bilirubin (NEGATIVE) Urine Urobilinogen (0-1) mg/dL Ur Leukocyte Esterase (NEGATIVE) Urine Microscopic RBC (0-2) /HPF Urine Microscopic WBC (0-5) /HPF Ur Epithelial Cells (FEW) /HPF Urine Bacteria (NEGATIVE) /HPF Urine Culture Reflexed (NO) Urine Glucose (NEGATIVE) mg/dL Specimen Received 07/15/17 Range/Units 19:37 WBC (4.0-10.5) K/mm3 RBC (4.1-5.6) M/mm3 Hgb (12.5-18.0) gm/dl Hct (42-50) % MCV (78-100) fl MCH (26-32) pg MCHC (32-36) g/dl RDW (11.5-14.0) % Plt Count (150-450) K/mm3 MPV (6-9.5) fl Gran % (36.0-66.0) % Lymphocytes % (24.0-44.0) % Monocytes % (0.0-12.0) % Eosinophils % (0.00-5.0) % Basophils % (0.0-0.4) % Basophils # (0-0.4) INR (0.8-3.0) APTT (24.1-36.1) SECONDS Sodium (137-145) mmol/L Potassium (3.5-5.1) mmol/L Chloride (98-107) mEq/L Carbon Dioxide (22-30) mmol/L Anion Gap (5-15) MEQ/L BUN (9-20) mg/dl Creatinine (0.66-1.25) mg/dl Estimated GFR ML/MIN Glucose (74-106) mg/dL Calcium (8.4-10.2) mg/dL Total Bilirubin (0.2-1.3) mg/d? AST (17-59) U/L ALT (0-50) U/L Alkaline Phosphatase (38-126) U/L Serum Total Protein (6.3-8.2) mg/dl Albumin (3.5-5.0) g/dl Ur Collection Type CCMS Urine Color YELLOW (YELLOW) Urine Appearance CLEAR (CLEAR) Urine pH 5.0 (5-6) Ur Specific [place] 1.020 (1.005-1.025) Urine Protein 30 (Negative) Urine Ketones NEGATIVE (NEGATIVE) Urine Blood NEGATIVE (0-5) Rai/ul Urine Nitrite NEGATIVE (NEGATIVE) Urine Bilirubin NEGATIVE (NEGATIVE) Urine Urobilinogen NORMAL (0-1) mg/dL Ur Leukocyte Esterase NEGATIVE (NEGATIVE) Urine Microscopic RBC 0-2 (0-2) /HPF Urine Microscopic WBC 0-2 (0-5) /HPF Ur Epithelial Cells FEW (FEW) /HPF Urine Bacteria RARE (NEGATIVE) /HPF Urine Culture Reflexed YES (NO) Urine Glucose 100 (NEGATIVE) mg/dL Specimen Received T@1945 - Progress Progress Note: 07/15/17 20:24 CT brain: kristie 7:30 PM 07/15/2017: No comps. Nonacute senile brain. 07/15/17 20:39 No sign of new stroke or injury. He has chronic pain. Better now. Walked with nurse. No specific pain. Daughter feels he has some decline since ending PT and HHC at end of Jun. She and pt are comfortable with release to assisted living. Will follow up with Dr Triana. Counseled pt/family regarding: lab results, diagnosis, need for follow-up, rad results - Departure Time of Disposition: 20:40 Departure Disposition: Home (assisted living) Clinical Impression: right sided pain, Hx of completed stroke Condition: Stable Critical Care Time: No Referrals: SAHARA TRIANA MD [ACTIVE STAFF] - Instructions: Preventing Falls in the Older Adult Additional Instructions: Follow up wtih Dr Triana. Take care not to fall. Return for problems or concerns.
[2017-07-15 20:58] VITALS: BP 152/67; PULSE 67
--- NOTE | 2017-07-16 08:37 | XRAY ---
Indication: Right-sided numbness. Multiple contiguous axial images obtained through the head without contrast. Comparison: None Age-appropriate global atrophy and mild periventricular degenerative micro-ischemia bilaterally. No acute intracranial hemorrhage, abnormal extra-axial fluid collection, or mass effect. Fourth ventricle is midline without hydrocephalus. Bony calvarium intact. Visualized paranasal sinuses and mastoid air cells are clear. Impression: Nonacute senile brain. CT DI 70.21
--- NOTE | 2017-07-16 09:08 | XRAY ---
Indication: Right-sided numbness. Comparison: May 04, 2017. Portable chest remains clear again with incidental calcified granulomas. Heart and mediastinal structures within normal limits with previous CABG surgery. Bony thorax intact again with mild degenerative changes. Impression: Stable nonacute chest with chronic features.
== END 2017-07-15 20:58 | disposition home or self-care (01) ==
LOC: ED 17:50
DX: R52 Pain, unspecified (principal); G89.29 Other chronic pain; R51 Headache; Z86.73 Personal history of transient ischemic attack (TIA), and cerebral infarction without residual deficits; Z79.01 Long term (current) use of anticoagulants; Z79.82 Long term (current) use of aspirin
CPT/HCPCS: 36415; 70450; 71045; 80053; 81000; 85025; 85610; 85730; 87086; 93005; 99284

== ENCOUNTER 2017-12-21 20:28 | Inpatient (IN) | payer MEDICARE ==
[2017-12-21] MEDS ORDERED: Sodium Chloride 0.9% 1000 ML 1,000 ML IV SCH (21:00)
--- NOTE | 2017-12-21 21:00 | ERPHSYRPT ---
- History of Present Illness Time Seen by Provider: 12/21/17 20:49 Source: patient Exam Limitations: no limitations Patient Subjective Stated Complaint: Pt arrives to ER with c/o "I'm tired". Pt has had increasing generalized weakness over past couple days to where he is less mobile. pt has been seen in past for dehydration. Saw Dr. Triana on Wednesday for sinus infection. Lives in [facility]. C/o generalized body aches from stroke 15-20 yearsa ago. Triage Nursing Assessment: Pt does not appear to be in any distress at this time with respirations easy even regular and unlabored. Physician History: 82-year-old white male arrives with complaint of fatigue, generalized weakness, nonproductive cough symptoms going on for 3 weeks. Patient's family states that he lives at assisted living and has been getting weaker and having difficulty getting out of bed. Patient does have a history of parkinsonism. He apparently had seen his family doctor 4 days ago was placed on antibiotics for sinus infection. Patient had no vomiting he states he is chronically short of breath he has generalized achiness. No nausea no vomiting he states he has problems controlling his urine. Past medical history includes parkinsonism, CVA, right-sided weakness( chronic) , hyperlipidemia, high blood pressure, diabetes type 2, cataracts, arthritis. Atherosclerotic coronary artery disease, chronic neuropathic pain Past surgical history includes CABG, orthopedic surgery with right shoulder and left hip. 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 Timing/Duration: week(s) (3 weeks) Severity: moderate Modifying Factors: Improves With: nothing Associated Symptoms: shortness of breath (chronic), cough (nonproductive), malaise, weakness, No nausea, No vomiting, No abdominal pain, No heartburn, No diaphoresis, No chills, No chest pain, No fever, No headaches, No loss of appetite, No rash, No syncope, No seizure Allergies/Adverse Reactions: No Known Drug Allergies Allergy (Verified 05/04/17 12:49) Home Medications: Aspirin 81 gm Chew [Baby Aspirin 81 mg Chew] 81 mg PO DAILY 06/10/14 [ History] Clopidogrel Bisulfate 75 mg [PLAVIX 75 MG Tablet] 75 mg PO DAILY 06/10/14 [History] Metoprolol Succinate 50 mg [Toprol Xl 50 MG] 25 mg PO BID 06/10/14 [ History] Simvastatin 20 mg PO DAILY 06/10/14 [History] Losartan Potassium [Cozaar] 25 mg PO DAILY 11/03/15 [History] Oxybutynin Chloride Xl 5 mg [Ditropan XL 5 MG] 5 mg PO BID 11/03/15 [ History] Pantoprazole Sodium [Protonix] 40 mg PO BID 11/03/15 [History] Acetaminophen 325 mg [Tylenol 325 mg] 650 mg PO Q4HPRN PRN 05/04/17 [ History] Gabapentin 300 mg PO BID 05/04/17 [History] Carbidopa/Levodopa [Carbidopa-Levodopa 25-100 Tab] 12/21/17 [History] Donepezil HCl 10 mg [Aricept 10 MG] 10 mg PO 12/21/17 [History] Melatonin 3 mg PO 12/21/17 [History] Hx Tetanus, Diphtheria Vaccination/Date Given: Yes Hx Influenza Vaccination/Date Given: Yes Hx Pneumococcal Vaccination/Date Given: Yes - Review of Systems Constitutional: Fatigue, Malaise, Weakness, No Fever, No Chills, No Lethargy, No Weight Loss Eyes: No Symptoms Ears, Nose, & Throat: No Symptoms Respiratory: Cough (nonproductive cough), No Cyanosis, No Dyspnea, No Dyspnea on Exertion ([place]), No Stridor, No Wheezing Cardiac: No Chest Pain, No Edema, No Syncope Abdominal/Gastrointestinal: No Abdominal Pain, No Nausea, No Vomiting, No Diarrhea Genitourinary Symptoms: No Dysuria Musculoskeletal: Arthralgias (chronic neuropathic pain), Myalgias Skin: No Rash Neurological: Tremors, Other (history of parkinsonism) Psychological: No Symptoms Endocrine: No Symptoms All Other Systems: Reviewed and Negative - Past Medical History Pertinent Past Medical History: Yes Neurological History: Stroke ENT History: Cataracts Cardiac History: High Cholesterol, Hypertension Respiratory History: No Pertinent History Endocrine Medical History: Diabetes Type II Musculoskeletal History: Arthritis GI Medical History: No Pertinent History History: No Pertinent History Psycho-Social History: No Pertinent History Male Reproductive Disorders: No Pertinent History Other Medical History: Parkinsons - Past Surgical History Past Surgical History: Yes Neuro Surgical History: No Pertinent History Cardiac: CABG Respiratory: No Pertinent History Gastrointestinal: No Pertinent History Genitourinary: No Pertinent History Musculoskeletal: Orthopedic Surgery Male Surgical History: No Pertinent History Other Surgical History: R SHOULDER SURGERY, LEFT hip - Social History Smoking Status: Never smoker Exposure to second hand smoke: No Alcohol Use: None Drug Use: none Patient Lives Alone: No Significant Family History: no pertinent family hx - Nursing Vital Signs Nursing Vital Signs: Initial Vital Signs Temperature 97.8 F 12/21/17 20:36 Pulse Rate 68 12/21/17 20:36 Respiratory Rate 18 12/21/17 20:36 Blood Pressure 212/93 12/21/17 20:36 O2 Sat by Pulse Oximetry 98 12/21/17 20:36 Pain Scale Pain Intensity 7 - Physical Exam General Appearance: other (well-developed elderly white male weak,chronic tremor right extremity) Eye Exam: PERRL/EOMI, eyes nml inspection Ears, Nose, Throat Exam: normal ENT inspection, TMs normal, pharynx normal, moist mucous membranes Neck Exam: normal inspection, non-tender, supple, full range of motion Respiratory Exam: normal breath sounds, lungs clear, No respiratory distress Cardiovascular Exam: regular rate/rhythm, normal heart sounds, normal peripheral pulses Gastrointestinal/Abdomen Exam: soft, normal bowel sounds, No tenderness, No mass Back Exam: normal inspection, normal range of motion, No CVA tenderness, No vertebral tenderness Extremity Exam: normal inspection, normal range of motion, pelvis stable Neurologic Exam: alert, oriented x 3, cooperative, 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 Compared to May 04, 2017) - Radiology Exams Chest X-ray Interpretation: Interpreted by me (cxr: s/p CABG, no acute disease process noted), No Pneumonia, No Pneumothorax Ordered Tests: Active Orders 24 hr Category Date Time Status Accucheck STAT Care 12/21/17 20:54 Active EKG-ER Only STAT Care 12/21/17 20:53 Active IV Insertion STAT Care 12/21/17 20:53 Active CHEST 1 VIEW (PORTABLE) Stat Exams 12/21/17 20:53 Taken BLOOD CULTURE Stat Lab 12/21/17 21:25 Received CBC W DIFF Stat Lab 12/21/17 21:25 Completed CMP Stat Lab 12/21/17 21:25 Completed CULTURE,URINE Stat Lab 12/21/17 21:05 Received Lactic Acid Stat Lab 12/21/17 21:20 Completed TROPONIN Q3H Lab 12/21/17 21:25 Completed TROPONIN Q3H Lab 12/22/17 00:00 Ordered TROPONIN Q3H Lab 12/22/17 03:00 Ordered TROPONIN Q3H Lab 12/22/17 06:00 Ordered TROPONIN Q3H Lab 12/22/17 09:00 Ordered UA W/ MICROSCOPIC Stat Lab 12/21/17 21:05 Completed Medication Summary Generic Name Dose Route Start Last Admin Trade Name Catrachoq PRN Reason Stop Dose Admin Sodium Chloride 1,000 mls @ 100 mls/hr 12/21/17 21:00 12/21/17 21:21 Sodium Chloride 0.9% 1000 Ml IV 01/20/18 20:59 100 mls/hr .Q10H POOJA Administration Lab/Rad Data: Laboratory Result Diagrams 12/21/17 21:25 12/21/17 21:25 Laboratory Results 12/21/17 12/21/17 12/21/17 Range/Units 21:25 21:25 21:25 WBC 8.2 (4.0-10.5) K/mm3 RBC 4.77 (4.1-5.6) M/mm3 Hgb 14.7 (12.5-18.0) gm/dl Hct 43.4 (42-50) % MCV 91.0 (78-100) fl MCH 30.8 (26-32) pg MCHC 33.9 (32-36) g/dl RDW 13.6 (11.5-14.0) % Plt Count 187 (150-450) K/mm3 MPV 11.2 H (6-9.5) fl Gran % 80.7 H (36.0-66.0) % Eos # (Auto) 0.03 (0-0.5) Absolute Lymphs (auto) 1.09 (1.0-4.6) Absolute Monos (auto) 0.45 (0.0-1.3) Lymphocytes % 13.2 L (24.0-44.0) % Monocytes % 5.5 (0.0-12.0) % Eosinophils % 0.4 (0.00-5.0) % Basophils % 0.2 (0.0-0.4) % Absolute Granulocytes 6.64 (1.4-6.9) Basophils # 0.02 (0-0.4) Sodium 142 (137-145) mmol/L Potassium 4.3 (3.5-5.1) mmol/L Chloride 103 (98-107) mmol/L Carbon Dioxide 29 (22-30) mmol/L Anion Gap 14.7 (5-15) MEQ/L BUN 26 H (9-20) mg/dL Creatinine 1.37 H (0.66-1.25) mg/dL Estimated GFR 52.9 ML/MIN Glucose 176 H (74-106) mg/dL Lactic Acid (0.4-2.0) Calcium 9.9 (8.4-10.2) mg/dL Total Bilirubin 0.70 (0.2-1.3) mg/dL AST 17 (17-59) U/L ALT 5 (0-50) U/L Alkaline Phosphatase 83 (38-126) U/L Troponin I < 0.012 (0.000-0.034) ng/mL Serum Total Protein 6.9 (6.3-8.2) g/dL Albumin 4.1 (3.5-5.0) g/dL Ur Collection Type Urine Color (YELLOW) Urine Appearance (CLEAR) Urine pH (5-6) Ur Specific [place] (1.005-1.025) Urine Protein (Negative) Urine Ketones (NEGATIVE) Urine Blood (0-5) Rai/ul Urine Nitrite (NEGATIVE) Urine Bilirubin (NEGATIVE) Urine Urobilinogen (0-1) mg/dL Ur Leukocyte Esterase (NEGATIVE) Urine Microscopic RBC (0-2) /HPF Urine Bacteria (NEGATIVE) /HPF Urine Culture Reflexed (NO) Urine Glucose (NEGATIVE) mg/dL Specimen Received 12/21/17 12/21/17 Range/Units 21:20 21:05 WBC (4.0-10.5) K/mm3 RBC (4.1-5.6) M/mm3 Hgb (12.5-18.0) gm/dl Hct (42-50) % MCV (78-100) fl MCH (26-32) pg MCHC (32-36) g/dl RDW (11.5-14.0) % Plt Count (150-450) K/mm3 MPV (6-9.5) fl Gran % (36.0-66.0) % Eos # (Auto) (0-0.5) Absolute Lymphs (auto) (1.0-4.6) Absolute Monos (auto) (0.0-1.3) Lymphocytes % (24.0-44.0) % Monocytes % (0.0-12.0) % Eosinophils % (0.00-5.0) % Basophils % (0.0-0.4) % Absolute Granulocytes (1.4-6.9) Basophils # (0-0.4) Sodium (137-145) mmol/L Potassium (3.5-5.1) mmol/L Chloride (98-107) mmol/L Carbon Dioxide (22-30) mmol/L Anion Gap (5-15) MEQ/L BUN (9-20) mg/dL Creatinine (0.66-1.25) mg/dL Estimated GFR ML/MIN Glucose (74-106) mg/dL Lactic Acid 1.2 (0.4-2.0) Calcium (8.4-10.2) mg/dL Total Bilirubin (0.2-1.3) mg/dL AST (17-59) U/L ALT (0-50) U/L Alkaline Phosphatase (38-126) U/L Troponin I (0.000-0.034) ng/mL Serum Total Protein (6.3-8.2) g/dL Albumin (3.5-5.0) g/dL Ur Collection Type void Urine Color YELLOW (YELLOW) Urine Appearance CLEAR (CLEAR) Urine pH 5.0 (5-6) Ur Specific [place] 1.020 (1.005-1.025) Urine Protein 100 (Negative) Urine Ketones NEGATIVE (NEGATIVE) Urine Blood TRACE NON-HEM (0-5) Rai/ul Urine Nitrite NEGATIVE (NEGATIVE) Urine Bilirubin NEGATIVE (NEGATIVE) Urine Urobilinogen NORMAL (0-1) mg/dL Ur Leukocyte Esterase NEGATIVE (NEGATIVE) Urine Microscopic RBC 0-2 (0-2) /HPF Urine Bacteria RARE (NEGATIVE) /HPF Urine Culture Reflexed YES (NO) Urine Glucose NEGATIVE (NEGATIVE) mg/dL Specimen Received 12-21 - Progress Progress: improved Progress Note: 12/21/17 22:18 This is an 82-year-old white male with history of CVA, and her chronic neuropathic pain, Parkinson's, chronic right-sided weakness, hyperlipidemia, high blood pressure, diabetes type 2, cataracts, arthritis, atherosclerotic coronary artery disease. He arrives with complaint of 3 weeks of weakness he states he's had some mild shortness of breath she has chronic also has had a cough nonproductive. He states he has chronic pain he has no chest pain. He basically states he is very weak and he is unable to get up and around he cannot take care of himself he lives at assisted living at [facility]. On physical examination patient is somewhat weak in appearance he is alert oriented 3 he has chronic tremor past noted in his right upper extremity He is able to move all extremities. He has no acute neurologic deficits on neurologic exam lungs are clear heart is regular blood pressure is noted to be elevated at 212/93 this was rechecked and found to be 191/73 last blood pressure is noted to be clinically significant with him 138/74 patient's temp is 98.7 pulse is 68 respirations 18 oxygen saturations are within normal limits. Patient's labs CBC White cell 8.2 hemoglobin 14.7 hematocrit 43.4 platelets 187. Chemistry sodium 142 potassium 4.3 chloride 103 bicarbonate 29 BUN 26 creatinine 1.37 glucose 176. Urinalysis is unremarkable. EKG sinus bradycardia normal EKG no acute ST or T wave changes. Chest x-ray status post CABG no acute disease process noted. Impression generalized weakness. Parkinson's. Plan I've discussed the patient's case with Dr. Davies will place patient on observation provide telemetry place patient on IV normal saline. Obtain 4 times a day Accu-Cheks, Neuro checks every 4 hours, Obtain CBC CMP in the morning, , - Departure Time of Disposition: 22:22 Departure Disposition: Observation Clinical Impression: Generalized weakness, increasing weakness, Parkinsons Condition: Fair Critical Care Time: No Referrals: SAHARA TRIANA MD [Primary Care Provider] -
[2017-12-21] MEDS ORDERED: Sodium Chloride 0.9% 1000 ML 1,000 ML ONE (21:09)
[2017-12-21 21:27] LABS: Appearance CLEAR (CLEAR); Bilirubin NEGATIVE (NEGATIVE); Glucose NEGATIVE (NEGATIVE); Ketones NEGATIVE (NEGATIVE); Leukocyte Esterase NEGATIVE (NEGATIVE); Nitrite NEGATIVE (NEGATIVE); Protein,Urine Dip 100 (Negative); Urobilinogen NORMAL mg/dL (0-1)
[2017-12-21 21:28] LABS: Blood TRACE NON-HEM Ery/ul (0-5)
[2017-12-21 21:29] LABS: RBC 0-2 /HPF (0-2)
[2017-12-21 21:30] LABS: Bacteria RARE /HPF (NEGATIVE)
[2017-12-21 21:32] LABS: BASOPHIL % 0.2 % (0.0-0.4); Basophil (Absolute #) 0.02 (0-0.4); Eosinophil % 0.4 % (0.00-5.0); Eosinophil (Absolute #) 0.03 (0-0.5); Granulocyte Absolute (ANC) 6.64 (1.4-6.9); Granulocytes % 80.7 % (36.0-66.0); Hematocrit 43.4 % (42-50); Hemoglobin 14.7 gm/dl (12.5-18.0); Lymphocyte (Absolute #) 1.09 (1.0-4.6); Lymphocytes % 13.2 % (24.0-44.0); Mean Corpuscular Hemoglobin 30.8 pg (26-32); Mean Corpuscular Hgb Concent. 33.9 g/dl (32-36); Mean Platelet Volume 11.2 fl (6-9.5); Monocyte (Absolute #) 0.45 (0.0-1.3); Monocytes % 5.5 % (0.0-12.0); Platelet Count 187 K/mm3 (150-450); Red Blood Count 4.77 M/mm3 (4.1-5.6); Red Cell Distribution Width 13.6 % (11.5-14.0); White Blood Count 8.2 K/mm3 (4.0-10.5)
[2017-12-21 21:53] LABS: ALBUMIN 4.1 g/dL (3.5-5.0); ANION GAP 14.7 MEQ/L (5-15); BILIRUBIN,TOTAL 0.7 mg/dL (0.2-1.3); Calcium 9.9 mg/dL (8.4-10.2); Creatinine 1 1.37 mg/dL (0.66-1.25); Potassium 4.3 mmol/L (3.5-5.1); Total Protein 6.9 g/dL (6.3-8.2)
[2017-12-22 03:43] LABS: BASOPHIL % 0.1 % (0.0-0.4); Basophil (Absolute #) 0.01 (0-0.4); Eosinophil % 0.3 % (0.00-5.0); Eosinophil (Absolute #) 0.03 (0-0.5); Granulocyte Absolute (ANC) 6.94 (1.4-6.9); Granulocytes % 79.8 % (36.0-66.0); Hematocrit 44.1 % (42-50); Hemoglobin 14.8 gm/dl (12.5-18.0); Lymphocyte (Absolute #) 1.17 (1.0-4.6); Lymphocytes % 13.4 % (24.0-44.0); Mean Cell Volume 91.9 fl (78-100); Mean Corpuscular Hemoglobin 30.8 pg (26-32); Mean Corpuscular Hgb Concent. 33.6 g/dl (32-36); Mean Platelet Volume 11.7 fl (6-9.5); Monocyte (Absolute #) 0.56 (0.0-1.3); Monocytes % 6.4 % (0.0-12.0); Platelet Count 178 K/mm3 (150-450); Red Cell Distribution Width 13.6 % (11.5-14.0); White Blood Count 8.7 K/mm3 (4.0-10.5)
[2017-12-22 04:10] LABS: ANION GAP 15.3 MEQ/L (5-15); BILIRUBIN,TOTAL 0.8 mg/dL (0.2-1.3); Calcium 9.8 mg/dL (8.4-10.2); Creatinine 1 1.36 mg/dL (0.66-1.25); Potassium 4.3 mmol/L (3.5-5.1)
[2017-12-22] MEDS: Sodium Chloride 0.9% 1000 ML 1,000 ML IV SCH ×3 (06:17→15:43)
--- NOTE | 2017-12-22 08:46 | PCM.HP ---
History of Present Illness - Chief Complaint Chief Complaint: generalized weakness History of Present Illness: is a 82 year old male with advanced parkinsonism who presented to the ER last night complaining of weakness and feeling poorly, he has been having difficulty ambulating and getting out of bed, profoundly weak. Was seen in the office 5 days ago and treated with IM steroid injection and po abx for sinusitis but continues to feel ill. He has had significant weight loss, decreased po intake and decreased output. - Review of Systems Constitutional: Chills, Weakness Ears, Nose, & Throat: Sinus Drainage Respiratory: Cough Cardiac: No Chest Pain, No Edema, No Syncope Genitourinary Symptoms: No Dysuria Musculoskeletal: No Injury Skin: No Rash Neurological: No Focal Weakness Psychological: No Symptoms All Other Systems: Reviewed and Negative Medications & Allergies Home Medications: Home Medication List Aspirin 81 gm Chew [Baby Aspirin 81 mg Chew] 81 mg PO DAILY 06/10/14 [ History Confirmed 12/22/17] Clopidogrel Bisulfate 75 mg [PLAVIX 75 MG Tablet] 75 mg PO DAILY 06/10/14 [History Confirmed 12/22/17] Metoprolol Succinate 50 mg [Toprol Xl 50 MG] 25 mg PO BID 06/10/14 [ History Confirmed 12/22/17] Simvastatin 20 mg PO DAILY 06/10/14 [History Confirmed 12/22/17] Losartan Potassium [Cozaar] 25 mg PO DAILY 11/03/15 [History Confirmed 12/22/17] Oxybutynin Chloride Xl 5 mg [Ditropan XL 5 MG] 5 mg PO BID 11/03/15 [ History Confirmed 12/22/17] Pantoprazole Sodium [Protonix] 40 mg PO BID 11/03/15 [History Confirmed 12/22/17 ] Acetaminophen 325 mg [Tylenol 325 mg] 650 mg PO Q4HPRN PRN 05/04/17 [ History Confirmed 12/22/17] Gabapentin 300 mg PO BID 05/04/17 [History Confirmed 12/22/17] Carbidopa/Levodopa [Carbidopa-Levodopa 25-100 Tab] 2 tab PO TID 12/21/17 [ History Confirmed 12/22/17] Donepezil HCl 10 mg [Aricept 10 MG] 5 mg PO DAILY 12/21/17 [History Confirmed 12/22/17] Allergies/Adverse Reactions: Allergies Allergy/AdvReac Type Severity Reaction Status Date / Time No Known Drug Allergies Allergy Verified 05/04/17 12:49 - Past Medical History Past Medical History: Yes Neurological History: Stroke ENT History: Cataracts Cardiac History: High Cholesterol, Hypertension Respiratory History: No Pertinent History Endocrine Medical History: Diabetes Type II Musculoskelatal History: Arthritis GI Medical History: No Pertinent History History: No Pertinent History Pyscho-Social History: No Pertinent History Male Reproductive Disorders: No Pertinent History Comment: Parkinsons - Past Surgical History Past Surgical History: Yes Neuro Surgical History: No Pertinent History Cardiac History: CABG Respiratory Surgery: No Pertinent History GI Surgical History: No Pertinent History Genitourinary Surgical Hx: No Pertinent History Musculskeletal Surgical Hx: Orthopedic Surgery Male Surgical History: No Pertinent History Other Surgical History: R SHOULDER SURGERY, LEFT hip - Social History Smoking Status: Never smoker Exposure to second hand smoke: No Alcohol: None Drug Use: none Significant Family History: no pertinent family hx - Physical Exam Vital Signs: Vital Signs - 24 hr Temp Pulse Resp BP Pulse Ox 12/22/17 07:58 98.2 F 53 L 12 191/74 93 L 12/22/17 07:46 18 12/22/17 04:00 98.3 F 62 24 165/70 95 12/22/17 01:35 97.4 F 54 L 20 154/70 96 12/22/17 00:00 20 12/21/17 23:25 93 L 12/21/17 22:23 98 12/21/17 21:31 97.8 F 54 L 191/79 96 12/21/17 20:36 97.8 F 68 18 212/93 98 Oxygen-Last 24 hours Oxygen Flowrate (L/min)-RT 95 General Appearance: alert, cachetic Neurologic Exam: alert, oriented x 3, cooperative, motor weakness (diffuse), No nml station & gait Eye Exam: PERRL/EOMI, eyes nml inspection Ears, Nose, Throat Exam: pharyngeal erythema, No moist mucous membranes Neck Exam: normal inspection, non-tender, supple, full range of motion Respiratory Exam: normal breath sounds, lungs clear, No respiratory distress Cardiovascular Exam: bradycardia Gastrointestinal/Abdomen Exam: soft, normal bowel sounds, No tenderness, No mass Extremity Exam: normal inspection, normal range of motion, pelvis stable Skin Exam: normal color, warm, dry, No rash Results - Labs Lab/Micro Results: Accuchecks Accucheck Value: 163 Lab Results-Last 24 Hours 12/21/17 12/21/17 12/21/17 Range/Units 21:05 21:20 21:25 WBC 8.2 (4.0-10.5) K/mm3 RBC 4.77 (4.1-5.6) M/mm3 Hgb 14.7 (12.5-18.0) gm/dl Hct 43.4 (42-50) % MCV 91.0 (78-100) fl MCH 30.8 (26-32) pg MCHC 33.9 (32-36) g/dl RDW 13.6 (11.5-14.0) % Plt Count 187 (150-450) K/mm3 MPV 11.2 H (6-9.5) fl Gran % 80.7 H (36.0-66.0) % Eos # (Auto) 0.03 (0-0.5) Absolute Lymphs (auto) 1.09 (1.0-4.6) Absolute Monos (auto) 0.45 (0.0-1.3) Lymphocytes % 13.2 L (24.0-44.0) % Monocytes % 5.5 (0.0-12.0) % Eosinophils % 0.4 (0.00-5.0) % Basophils % 0.2 (0.0-0.4) % Absolute Granulocytes 6.64 (1.4-6.9) Basophils # 0.02 (0-0.4) Sodium (137-145) mmol/L Potassium (3.5-5.1) mmol/L Chloride (98-107) mmol/L Carbon Dioxide (22-30) mmol/L Anion Gap (5-15) MEQ/L BUN (9-20) mg/dL Creatinine (0.66-1.25) mg/dL Estimated GFR ML/MIN Glucose (74-106) mg/dL Lactic Acid 1.2 (0.4-2.0) Calcium (8.4-10.2) mg/dL Total Bilirubin (0.2-1.3) mg/dL AST (17-59) U/L ALT (0-50) U/L Alkaline Phosphatase (38-126) U/L Troponin I (0.000-0.034) ng/mL Serum Total Protein (6.3-8.2) g/dL Albumin (3.5-5.0) g/dL Ur Collection Type void Urine Color YELLOW (YELLOW) Urine Appearance CLEAR (CLEAR) Urine pH 5.0 (5-6) Ur Specific [place] 1.020 (1.005-1.025) Urine Protein 100 (Negative) Urine Ketones NEGATIVE (NEGATIVE) Urine Blood TRACE NON-HEM (0-5) Rai/ul Urine Nitrite NEGATIVE (NEGATIVE) Urine Bilirubin NEGATIVE (NEGATIVE) Urine Urobilinogen NORMAL (0-1) mg/dL Ur Leukocyte Esterase NEGATIVE (NEGATIVE) Urine Microscopic RBC 0-2 (0-2) /HPF Urine Bacteria RARE (NEGATIVE) /HPF Urine Culture Reflexed YES (NO) Urine Glucose NEGATIVE (NEGATIVE) mg/dL Specimen Received 12-2112/21/17 12/21/17 12/22/17 Range/Units 21:25 21:25 00:25 WBC (4.0-10.5) K/mm3 RBC (4.1-5.6) M/mm3 Hgb (12.5-18.0) gm/dl Hct (42-50) % MCV (78-100) fl MCH (26-32) pg MCHC (32-36) g/dl RDW (11.5-14.0) % Plt Count (150-450) K/mm3 MPV (6-9.5) fl Gran % (36.0-66.0) % Eos # (Auto) (0-0.5) Absolute Lymphs (auto) (1.0-4.6) Absolute Monos (auto) (0.0-1.3) Lymphocytes % (24.0-44.0) % Monocytes % (0.0-12.0) % Eosinophils % (0.00-5.0) % Basophils % (0.0-0.4) % Absolute Granulocytes (1.4-6.9) Basophils # (0-0.4) Sodium 142 (137-145) mmol/L Potassium 4.3 (3.5-5.1) mmol/L Chloride 103 (98-107) mmol/L Carbon Dioxide 29 (22-30) mmol/L Anion Gap 14.7 (5-15) MEQ/L BUN 26 H (9-20) mg/dL Creatinine 1.37 H (0.66-1.25) mg/dL Estimated GFR 52.9 ML/MIN Glucose 176 H (74-106) mg/dL Lactic Acid (0.4-2.0) Calcium 9.9 (8.4-10.2) mg/dL Total Bilirubin 0.70 (0.2-1.3) mg/dL AST 17 (17-59) U/L ALT 5 (0-50) U/L Alkaline Phosphatase 83 (38-126) U/L Troponin I < 0.012 < 0.012 (0.000-0.034) ng/mL Serum Total Protein 6.9 (6.3-8.2) g/dL Albumin 4.1 (3.5-5.0) g/dL Ur Collection Type Urine Color (YELLOW) Urine Appearance (CLEAR) Urine pH (5-6) Ur Specific [place] (1.005-1.025) Urine Protein (Negative) Urine Ketones (NEGATIVE) Urine Blood (0-5) Rai/ul Urine Nitrite (NEGATIVE) Urine Bilirubin (NEGATIVE) Urine Urobilinogen (0-1) mg/dL Ur Leukocyte Esterase (NEGATIVE) Urine Microscopic RBC (0-2) /HPF Urine Bacteria (NEGATIVE) /HPF Urine Culture Reflexed (NO) Urine Glucose (NEGATIVE) mg/dL Specimen Received 12/22/17 12/22/17 12/22/17 Range/Units 03:20 03:20 03:20 WBC 8.7 (4.0-10.5) K/mm3 RBC 4.80 (4.1-5.6) M/mm3 Hgb 14.8 (12.5-18.0) gm/dl Hct 44.1 (42-50) % MCV 91.9 (78-100) fl MCH 30.8 (26-32) pg MCHC 33.6 (32-36) g/dl RDW 13.6 (11.5-14.0) % Plt Count 178 (150-450) K/mm3 MPV 11.7 H (6-9.5) fl Gran % 79.8 H (36.0-66.0) % Eos # (Auto) 0.03 (0-0.5) Absolute Lymphs (auto) 1.17 (1.0-4.6) Absolute Monos (auto) 0.56 (0.0-1.3) Lymphocytes % 13.4 L (24.0-44.0) % Monocytes % 6.4 (0.0-12.0) % Eosinophils % 0.3 (0.00-5.0) % Basophils % 0.1 (0.0-0.4) % Absolute Granulocytes 6.94 H (1.4-6.9) Basophils # 0.01 (0-0.4) Sodium 142 (137-145) mmol/L Potassium 4.3 (3.5-5.1) mmol/L Chloride 103 (98-107) mmol/L Carbon Dioxide 28 (22-30) mmol/L Anion Gap 15.3 H (5-15) MEQ/L BUN 27 H (9-20) mg/dL Creatinine 1.36 H (0.66-1.25) mg/dL Estimated GFR 53.3 ML/MIN Glucose 178 H (74-106) mg/dL Lactic Acid (0.4-2.0) Calcium 9.8 (8.4-10.2) mg/dL Total Bilirubin 0.80 (0.2-1.3) mg/dL AST 52 (17-59) U/L ALT 6 (0-50) U/L Alkaline Phosphatase 85 (38-126) U/L Troponin I < 0.012 (0.000-0.034) ng/mL Serum Total Protein 7.0 (6.3-8.2) g/dL Albumin 4.0 (3.5-5.0) g/dL Ur Collection Type Urine Color (YELLOW) Urine Appearance (CLEAR) Urine pH (5-6) Ur Specific [place] (1.005-1.025) Urine Protein (Negative) Urine Ketones (NEGATIVE) Urine Blood (0-5) Rai/ul Urine Nitrite (NEGATIVE) Urine Bilirubin (NEGATIVE) Urine Urobilinogen (0-1) mg/dL Ur Leukocyte Esterase (NEGATIVE) Urine Microscopic RBC (0-2) /HPF Urine Bacteria (NEGATIVE) /HPF Urine Culture Reflexed (NO) Urine Glucose (NEGATIVE) mg/dL Specimen Received 12/22/17 Range/Units 05:50 WBC (4.0-10.5) K/mm3 RBC (4.1-5.6) M/mm3 Hgb (12.5-18.0) gm/dl Hct (42-50) % MCV (78-100) fl MCH (26-32) pg MCHC (32-36) g/dl RDW (11.5-14.0) % Plt Count (150-450) K/mm3 MPV (6-9.5) fl Gran % (36.0-66.0) % Eos # (Auto) (0-0.5) Absolute Lymphs (auto) (1.0-4.6) Absolute Monos (auto) (0.0-1.3) Lymphocytes % (24.0-44.0) % Monocytes % (0.0-12.0) % Eosinophils % (0.00-5.0) % Basophils % (0.0-0.4) % Absolute Granulocytes (1.4-6.9) Basophils # (0-0.4) Sodium (137-145) mmol/L Potassium (3.5-5.1) mmol/L Chloride (98-107) mmol/L Carbon Dioxide (22-30) mmol/L Anion Gap (5-15) MEQ/L BUN (9-20) mg/dL Creatinine (0.66-1.25) mg/dL Estimated GFR ML/MIN Glucose (74-106) mg/dL Lactic Acid (0.4-2.0) Calcium (8.4-10.2) mg/dL Total Bilirubin (0.2-1.3) mg/dL AST (17-59) U/L ALT (0-50) U/L Alkaline Phosphatase (38-126) U/L Troponin I < 0.012 (0.000-0.034) ng/mL Serum Total Protein (6.3-8.2) g/dL Albumin (3.5-5.0) g/dL Ur Collection Type Urine Color (YELLOW) Urine Appearance (CLEAR) Urine pH (5-6) Ur Specific [place] (1.005-1.025) Urine Protein (Negative) Urine Ketones (NEGATIVE) Urine Blood (0-5) Rai/ul Urine Nitrite (NEGATIVE) Urine Bilirubin (NEGATIVE) Urine Urobilinogen (0-1) mg/dL Ur Leukocyte Esterase (NEGATIVE) Urine Microscopic RBC (0-2) /HPF Urine Bacteria (NEGATIVE) /HPF Urine Culture Reflexed (NO) Urine Glucose (NEGATIVE) mg/dL Specimen Received Accuchecks Accucheck Value: 163 - Radiology Impressions Radiology Exams & Impressions: Radiology Procedures Category Date Time Status CHEST 1 VIEW (PORTABLE) Stat Exams 12/21/17 20:53 Taken Assessment/Plan (1) Acute sinusitis Current Visit: Yes Status: Acute Assessment & Plan: will start on rocephin and add po steroid daily to current regimen, failed outpatient therapy and patient has become dehydrated and profoundly weak. Code(s): J01.90 - ACUTE SINUSITIS, UNSPECIFIED (2) Failure of outpatient treatment Current Visit: Yes Status: Acute Assessment & Plan: see HPI, failed po abx and IM steroid injection in office Code(s): Z78.9 - OTHER SPECIFIED HEALTH STATUS (3) Parkinson disease, symptomatic Current Visit: Yes Status: Acute Assessment & Plan: has advancing disease, rather end-stage. discussed higher level of care with patient and family. they are interested in rehab stay at [facility] if feasible. patient not interested in PEG tube Code(s): G20 - PARKINSON'S DISEASE (4) Dehydration Current Visit: Yes Status: Acute Assessment & Plan: replacing fluid deficit Code(s): E86.0 - DEHYDRATION (5) Difficulty swallowing Current Visit: Yes Status: Acute Assessment & Plan: has had dilation with Dr Mendoza, appears to have muscular weakness related to advanced parkinsonism, prognosis is poor Code(s): R13.10 - DYSPHAGIA, UNSPECIFIED
--- NOTE | 2017-12-22 09:06 | XRAY ---
Indication: Cough. Comparison: July 15, 2017. Portable chest remains clear again with incidental tiny calcified granulomas. Heart is not enlarged again demonstrating previous CABG surgery. Bony thorax intact again with mild degenerative changes. Impression: Stable nonacute chest with chronic features.
[2017-12-22] MEDS ORDERED: TYLENOL 325 MG PO PRN (10:05)
[2017-12-22] MEDS: Ditropan XL 5 MG PO SCH ×2 (10:17→22:00)
[2017-12-22] MEDS: ECOTRIN 81 MG PO SCH (10:17)
[2017-12-22] MEDS: Protonix 40MG Tablet PO SCH ×2 (10:17→22:01)
[2017-12-22] MEDS: PLAVIX 75 MG Tablet PO SCH (10:17)
[2017-12-22] MEDS: Cozaar 50 MG PO SCH (10:17)
[2017-12-22] MEDS: ZOCOR 20MG PO SCH (10:17)
[2017-12-22] MEDS: Aricept 10 MG PO SCH (10:18)
[2017-12-22] MEDS: DELTASONE 20 MG PO SCH (10:18)
[2017-12-22] MEDS: Sinemet 25/100 MG PO SCH ×3 (10:18→22:00)
[2017-12-22] MEDS: ROCEPHIN 1 Gm-D5w 50 ml Bag** 1 G/50 ML IVPB IV SCH (10:18)
[2017-12-22] MEDS: NEURONTIN 300 MG PO SCH ×2 (10:19→22:01)
[2017-12-22] MEDS: Toprol-Xl 25MG Tablets PO SCH ×3 (10:25→22:01)
[2017-12-22] MEDS: NovoLOG Insulin SQ PRN ×2 (16:36→21:57)
[2017-12-23] MEDS: Sodium Chloride 0.9% 1000 ML 1,000 ML IV SCH ×3 (00:49→19:23)
[2017-12-23 05:52] LABS: BASOPHIL % 0.1 % (0.0-0.4); Basophil (Absolute #) 0.01 (0-0.4); Eosinophil (Absolute #) 0 (0-0.5); Granulocyte Absolute (ANC) 12.35 (1.4-6.9); Granulocytes % 88.4 % (36.0-66.0); Hematocrit 42.4 % (42-50); Hemoglobin 14.3 gm/dl (12.5-18.0); Lymphocyte (Absolute #) 0.97 (1.0-4.6); Lymphocytes % 6.9 % (24.0-44.0); Mean Cell Volume 90.8 fl (78-100); Mean Corpuscular Hemoglobin 30.6 pg (26-32); Mean Corpuscular Hgb Concent. 33.7 g/dl (32-36); Mean Platelet Volume 11.3 fl (6-9.5); Monocyte (Absolute #) 0.64 (0.0-1.3); Monocytes % 4.6 % (0.0-12.0); Platelet Count 187 K/mm3 (150-450); Red Blood Count 4.67 M/mm3 (4.1-5.6); Red Cell Distribution Width 13.4 % (11.5-14.0)
[2017-12-23 06:08] LABS: ANION GAP 11.8 MEQ/L (5-15); BLOOD UREA NITROGEN 22 mg/dL (9-20); CHLORIDE 105 mmol/L (98-107); Calcium 9.4 mg/dL (8.4-10.2); Carbon Dioxide 28 mmol/L (22-30); Creatinine 1 1.13 mg/dL (0.66-1.25); Glucose 202 mg/dL (74-106); Potassium 4.3 mmol/L (3.5-5.1); SODIUM 140 mmol/L (137-145)
--- NOTE | 2017-12-23 08:31 | PCM.NOTE ---
Date and Time: 12/23/17 0830 Subjective Assessment: patient is feeling better, sinus congestion improving. he feels like his strength is improving and he had a bowel movement this morning. Objective Exam General Appearance: thin (frail and weak) Neurologic Exam: alert Skin Exam: normal color, warm, dry Respiratory Exam: normal breath sounds, lungs clear, No respiratory distress Cardiovascular Exam: regular rate/rhythm, normal heart sounds Gastrointestinal/Abdomen Exam: soft, No tenderness, No mass OBJECTIVE DATA Vital Signs: Vital Signs - 24 hr Temp Pulse Resp BP Pulse Ox 12/23/17 08:00 97.5 F 55 L 18 138/65 96 12/23/17 05:00 21 12/23/17 04:00 97.5 F 51 L 21 154/70 95 12/23/17 01:00 18 12/22/17 23:56 97.4 F 63 17 131/62 92 L 12/22/17 21:30 20 12/22/17 20:10 94 L 12/22/17 20:00 97.8 F 70 20 153/70 93 L 12/22/17 16:00 97.7 F 64 18 170/71 94 L 12/22/17 11:48 14 12/22/17 11:40 98.2 F 69 14 200/81 97 Pain Assessment - Last Documented Pain Intensity 5 Pain Scale Used [facility] Intake and Output: Intake & Output 12/20/17 12/21/17 12/22/17 12/23/17 11:59 11:59 11:59 11:59 Intake Total 1878 2522 Output Total 475 300 Balance 1403 2222 Weight 63.2 kg Lab Results: Accuchecks Date 12/23/17 Date 12/22/17 Date 12/22/17 Date 12/22/17 Time 07:22 Time 21:52 Time 16:34 Time 11:43 Accucheck Value: 195 Accucheck Value: 258 Accucheck Value: 222 Accucheck Value: 169 Lab Results-Last 24 Hours 12/22/17 12/22/17 12/23/17 Range/Units 09:00 Unknown 05:25 WBC 14.0 H (4.0-10.5) K/mm3 RBC 4.67 (4.1-5.6) M/mm3 Hgb 14.3 (12.5-18.0) gm/dl Hct 42.4 (42-50) % MCV 90.8 (78-100) fl MCH 30.6 (26-32) pg MCHC 33.7 (32-36) g/dl RDW 13.4 (11.5-14.0) % Plt Count 187 (150-450) K/mm3 MPV 11.3 H (6-9.5) fl Gran % 88.4 H (36.0-66.0) % Eos # (Auto) 0 (0-0.5) Absolute Lymphs (auto) 0.97 L (1.0-4.6) Absolute Monos (auto) 0.64 (0.0-1.3) Lymphocytes % 6.9 L (24.0-44.0) % Monocytes % 4.6 (0.0-12.0) % Eosinophils % 0.0 (0.00-5.0) % Basophils % 0.1 (0.0-0.4) % Absolute Granulocytes 12.35 H (1.4-6.9) Basophils # 0.01 (0-0.4) Sodium (137-145) mmol/L Potassium (3.5-5.1) mmol/L Chloride (98-107) mmol/L Carbon Dioxide (22-30) mmol/L Anion Gap (5-15) MEQ/L BUN (9-20) mg/dL Creatinine (0.66-1.25) mg/dL Estimated GFR ML/MIN Glucose (74-106) mg/dL Hemoglobin A1c 7.27 H (4.5-6.0) % Calcium (8.4-10.2) mg/dL Troponin I < 0.012 (0.000-0.034) ng/mL 12/23/17 Range/Units 05:25 WBC (4.0-10.5) K/mm3 RBC (4.1-5.6) M/mm3 Hgb (12.5-18.0) gm/dl Hct (42-50) % MCV (78-100) fl MCH (26-32) pg MCHC (32-36) g/dl RDW (11.5-14.0) % Plt Count (150-450) K/mm3 MPV (6-9.5) fl Gran % (36.0-66.0) % Eos # (Auto) (0-0.5) Absolute Lymphs (auto) (1.0-4.6) Absolute Monos (auto) (0.0-1.3) Lymphocytes % (24.0-44.0) % Monocytes % (0.0-12.0) % Eosinophils % (0.00-5.0) % Basophils % (0.0-0.4) % Absolute Granulocytes (1.4-6.9) Basophils # (0-0.4) Sodium 140 (137-145) mmol/L Potassium 4.3 (3.5-5.1) mmol/L Chloride 105 (98-107) mmol/L Carbon Dioxide 28 (22-30) mmol/L Anion Gap 11.8 (5-15) MEQ/L BUN 22 H (9-20) mg/dL Creatinine 1.13 (0.66-1.25) mg/dL Estimated GFR > 60.0 ML/MIN Glucose 202 H (74-106) mg/dL Hemoglobin A1c (4.5-6.0) % Calcium 9.4 (8.4-10.2) mg/dL Troponin I (0.000-0.034) ng/mL Radiology Exams: Radiology Procedures Category Date Time Status CHEST 1 VIEW (PORTABLE) Stat Exams 12/21/17 20:53 Completed Multi-Disciplinary Progress Notes: Multi-Disciplinary Progress Notes 12/22/17 11:00 Case Management Note by Mari Garcia REFERRAL CALLED TO [facility], SPOKE WITH [facility] ASSIST[facility]. Initialized on 12/22/17 11:00 - END OF NOTE Assessment/Plan (1) Acute sinusitis Current Visit: Yes Status: Acute Assessment & Plan: continue rocephin and prednisone, appears to be improving. Code(s): J01.90 - ACUTE SINUSITIS, UNSPECIFIED (2) Failure of outpatient treatment Current Visit: Yes Status: Acute Code(s): Z78.9 - OTHER SPECIFIED HEALTH STATUS (3) Parkinson disease, symptomatic Current Visit: Yes Status: Acute Assessment & Plan: patient not suitable to return to assisted living. awaiting e[facility] placement. Code(s): G20 - PARKINSON'S DISEASE (4) Dehydration Current Visit: Yes Status: Acute Assessment & Plan: improving. Code(s): E86.0 - DEHYDRATION (5) Difficulty swallowing Current Visit: Yes Status: Acute Code(s): R13.10 - DYSPHAGIA, UNSPECIFIED
[2017-12-23] MEDS: ROCEPHIN 1 Gm-D5w 50 ml Bag** 1 G/50 ML IVPB IV SCH (09:18)
[2017-12-23] MEDS: NEURONTIN 300 MG PO SCH ×2 (09:19→21:58)
[2017-12-23] MEDS: Toprol-Xl 25MG Tablets PO SCH ×2 (09:19→21:59)
[2017-12-23] MEDS: DELTASONE 20 MG PO SCH (09:19)
[2017-12-23] MEDS: Ditropan XL 5 MG PO SCH ×2 (09:19→21:58)
[2017-12-23] MEDS: Cozaar 50 MG PO SCH (09:19)
[2017-12-23] MEDS: PLAVIX 75 MG Tablet PO SCH (09:19)
[2017-12-23] MEDS: ZOCOR 20MG PO SCH (09:19)
[2017-12-23] MEDS: Sinemet 25/100 MG PO SCH ×3 (09:20→21:59)
[2017-12-23] MEDS: Protonix 40MG Tablet PO SCH ×2 (09:20→21:58)
[2017-12-23] MEDS: ECOTRIN 81 MG PO SCH (09:20)
[2017-12-23] MEDS: Aricept 10 MG PO SCH (09:20)
[2017-12-23] MEDS ORDERED: BABY ASPIRIN 81 MG CHEW PO SCH (10:00)
[2017-12-23] MEDS ORDERED: NON-FORMULARY ITEM (Losartan Potassium [Cozaar] 25 MG) PO SCH (10:00)
[2017-12-23] MEDS: NovoLOG Insulin SQ PRN ×2 (16:26→21:58)
[2017-12-24] MEDS: Sodium Chloride 0.9% 1000 ML 1,000 ML IV SCH ×3 (04:08→23:41)
[2017-12-24] MEDS ORDERED: NovoLOG Insulin SQ PRN (08:16)
--- NOTE | 2017-12-24 08:16 | PCM.NOTE ---
Date and Time: 12/24/17 08 patient sleeping but easily arousable, he reports he continues to feel better. strength is improving. no new complaints Objective Exam General Appearance: no apparent distress, thin Neurologic Exam: alert Skin Exam: normal color, warm, dry Respiratory Exam: normal breath sounds, lungs clear, No respiratory distress Cardiovascular Exam: regular rate/rhythm, normal heart sounds Gastrointestinal/Abdomen Exam: soft, No tenderness, No mass OBJECTIVE DATA Vital Signs: Vital Signs - 24 hr Temp Pulse Resp BP Pulse Ox 12/24/17 07:26 98.4 F 54 L 20 125/62 98 12/24/17 05:00 12 12/24/17 04:00 98.3 F 50 L 12 118/55 96 12/24/17 01:00 16 12/23/17 23:59 97.6 F 52 L 16 129/60 96 12/23/17 21:00 18 12/23/17 20:00 97.6 F 57 L 18 138/63 96 12/23/17 16:58 18 12/23/17 16:00 97.8 F 77 17 152/70 96 12/23/17 13:00 18 12/23/17 12:00 98.0 F 64 18 134/80 98 12/23/17 09:00 18 Pain Assessment - Last Documented Pain Intensity 5 Pain Scale Used 0-10 Pain Scale Intake and Output: Intake & Output 12/21/17 12/22/17 12/23/17 12/24/17 11:59 11:59 11:59 11:59 Intake Total 1878 2642 2944 Output Total 475 300 575 Balance 1403 2342 2369 Weight 63.2 kg Lab Results: Accuchecks Date 12/23/17 Date 12/23/17 Date 12/23/17 Time 21:00 Time 16:30 Time 12:18 Accucheck Value: 234 Accucheck Value: 322 Accucheck Value: 195 Assessment/Plan (1) Acute sinusitis Current Visit: Yes Status: Acute Assessment & Plan: continue levaquin, possible d/c tomorrow to [facility]. continues to improve Code(s): J01.90 - ACUTE SINUSITIS, UNSPECIFIED (2) Failure of outpatient treatment Current Visit: Yes Status: Acute Code(s): Z78.9 - OTHER SPECIFIED HEALTH STATUS (3) Parkinson disease, symptomatic Current Visit: Yes Status: Acute Code(s): G20 - PARKINSON'S DISEASE (4) Dehydration Current Visit: Yes Status: Acute Assessment & Plan: improved state of hydration Code(s): E86.0 - DEHYDRATION (5) Difficulty swallowing Current Visit: Yes Status: Acute Code(s): R13.10 - DYSPHAGIA, UNSPECIFIED
[2017-12-24] MEDS: Aricept 10 MG PO SCH (09:38)
[2017-12-24] MEDS: DELTASONE 20 MG PO SCH (09:39)
[2017-12-24] MEDS: Cozaar 50 MG PO SCH (09:39)
[2017-12-24] MEDS: Ditropan XL 5 MG PO SCH ×2 (09:39→21:19)
[2017-12-24] MEDS: ECOTRIN 81 MG PO SCH (09:39)
[2017-12-24] MEDS: PLAVIX 75 MG Tablet PO SCH (09:40)
[2017-12-24] MEDS: Protonix 40MG Tablet PO SCH ×2 (09:40→21:20)
[2017-12-24] MEDS: NEURONTIN 300 MG PO SCH ×2 (09:40→21:20)
[2017-12-24] MEDS: Sinemet 25/100 MG PO SCH ×3 (09:40→21:20)
[2017-12-24] MEDS: ZOCOR 20MG PO SCH (09:41)
[2017-12-24] MEDS: Toprol-Xl 25MG Tablets PO SCH ×2 (09:42→21:20)
[2017-12-24] MEDS: ROCEPHIN 1 Gm-D5w 50 ml Bag** 1 G/50 ML IVPB IV SCH (09:43)
[2017-12-24] MEDS: NovoLOG Insulin SQ PRN ×3 (11:34→21:19)
[2017-12-25 06:14] LABS: BLOOD UREA NITROGEN 21 mg/dL (9-20); CHLORIDE 106 mmol/L (98-107); Calcium 8.9 mg/dL (8.4-10.2); Carbon Dioxide 28 mmol/L (22-30); Creatinine 1 1.19 mg/dL (0.66-1.25); Glucose 154 mg/dL (74-106); Potassium 3.9 mmol/L (3.5-5.1); SODIUM 141 mmol/L (137-145)
[2017-12-25 06:23] LABS: BASOPHIL % 0.2 % (0.0-0.4); Basophil (Absolute #) 0.02 (0-0.4); Eosinophil % 0.1 % (0.00-5.0); Eosinophil (Absolute #) 0.01 (0-0.5); Granulocyte Absolute (ANC) 9.45 (1.4-6.9); Granulocytes % 84.8 % (36.0-66.0); Hemoglobin 13.5 gm/dl (12.5-18.0); Lymphocyte (Absolute #) 1.03 (1.0-4.6); Lymphocytes % 9.2 % (24.0-44.0); Mean Cell Volume 91.3 fl (78-100); Mean Corpuscular Hemoglobin 30.8 pg (26-32); Mean Corpuscular Hgb Concent. 33.8 g/dl (32-36); Mean Platelet Volume 11.7 fl (6-9.5); Monocyte (Absolute #) 0.64 (0.0-1.3); Monocytes % 5.7 % (0.0-12.0); Platelet Count 166 K/mm3 (150-450); Red Blood Count 4.38 M/mm3 (4.1-5.6); Red Cell Distribution Width 13.6 % (11.5-14.0); White Blood Count 11.2 K/mm3 (4.0-10.5)
[2017-12-25 08:10] VITALS: BP 160/70; PULSE 53; O2SAT 96
[2017-12-25] MEDS: ROCEPHIN 1 Gm-D5w 50 ml Bag** 1 G/50 ML IVPB IV SCH (09:37)
--- NOTE | 2017-12-25 09:38 | PCM.DS ---
Discharge Summary Date of Admission: 12/22/17 08:41 Admitting Physician: SAHARA TRIANA Primary Care Provider: SAHARA TRIANA Allergies Allergies No Known Drug Allergies Allergy (Verified 05/04/17 12:49) Hospital Summary - Hospital Course Hospital Course: patient was admitted with weakness, difficulty ambulating. had sinus infection that failed outpatient therapy. he has improved with treatment in the hospital. going to [facility] for rehab stay, his po intake has improved and he feels like his strength is improving as well. - Vitals & Intake/Output Vital Signs: Vital Signs Temperature 97.7 F 12/25/17 08:09 Pulse Rate 53 L 12/25/17 08:09 Respiratory Rate 18 12/25/17 08:09 Blood Pressure 160/70 12/25/17 08:09 O2 Sat by Pulse Oximetry 96 12/25/17 08:09 Intake & Output: Intake & Output 12/22/17 12/23/17 12/24/17 12/25/17 11:59 11:59 11:59 11:59 Intake Total 1878 2642 2944 3853 Output Total 475 300 575 100 Balance 1403 2342 2369 3753 Weight 63.2 kg 63.2 kg - Lab Result Diagrams: 12/25/17 05:25 12/25/17 05:25 Lab Results-Last 24 Hrs: Accuchecks Date 12/25/17 Date 12/24/17 Date 12/24/17 Date 12/24/17 Time 07:30 Time 23:45 Time 16:08 Time 11:38 Accucheck Value: 154 Accucheck Value: 227 Accucheck Value: 259 Accucheck Value: 237 Lab Results-Last 24 Hours 12/25/17 12/25/17 Range/Units 05:25 05:25 WBC 11.2 H (4.0-10.5) K/mm3 RBC 4.38 (4.1-5.6) M/mm3 Hgb 13.5 (12.5-18.0) gm/dl Hct 40.0 L (42-50) % MCV 91.3 (78-100) fl MCH 30.8 (26-32) pg MCHC 33.8 (32-36) g/dl RDW 13.6 (11.5-14.0) % Plt Count 166 (150-450) K/mm3 MPV 11.7 H (6-9.5) fl Gran % 84.8 H (36.0-66.0) % Eos # (Auto) 0.01 (0-0.5) Absolute Lymphs (auto) 1.03 (1.0-4.6) Absolute Monos (auto) 0.64 (0.0-1.3) Lymphocytes % 9.2 L (24.0-44.0) % Monocytes % 5.7 (0.0-12.0) % Eosinophils % 0.1 (0.00-5.0) % Basophils % 0.2 (0.0-0.4) % Absolute Granulocytes 9.45 H (1.4-6.9) Basophils # 0.02 (0-0.4) Sodium 141 (137-145) mmol/L Potassium 3.9 (3.5-5.1) mmol/L Chloride 106 (98-107) mmol/L Carbon Dioxide 28 (22-30) mmol/L Anion Gap 11.0 (5-15) MEQ/L BUN 21 H (9-20) mg/dL Creatinine 1.19 (0.66-1.25) mg/dL Estimated GFR > 60.0 ML/MIN Glucose 154 H (74-106) mg/dL Calcium 8.9 (8.4-10.2) mg/dL Micro Results-Entire Visit: Microbiology 12/21/17 21:05 Urine Culture - Final Urine, Void NO GROWTH 12/21/17 21:25 Blood Culture - Preliminary Blood NO GROWTH TO DATE 12/21/17 21:00 Blood Culture - Preliminary Blood NO GROWTH TO DATE Accuchecks Date 12/25/17 Date 12/24/17 Date 12/24/17 Date 12/24/17 Time 07:30 Time 23:45 Time 16:08 Time 11:38 Accucheck Value: 154 Accucheck Value: 227 Accucheck Value: 259 Accucheck Value: 237 - Procedures and Test Procedures and Tests throughout Hospitalization: Therapy Orders & Screens 12/22/17 02:01 OT Screen per Nursing Assess Comment: Protocol Order Physician Instructions: Greater than 3 points order OT Admission Screening Reason For Exam: Triggered on Admission Diagnosis: generalized weakness Open Wound/Cellutlitis/Pressure Ulcers: No Acute Fx/ORIF/Change in wt bearing status: No Severe MUSCULOSKELETAL pain: No ADL Dysfunction: Yes Acute CVA w/Hemiparesis/Hemiplegia: No Decreased Functional Mobility/Strength: Yes Sprain/Strain: No Acute Post-op Mobility Dysfunction: No Total Points: 4 PT Screen per Nursing Assess ONCE Comment: Protocol Order Physician Instructions: Greater than 3 points order PT Admission Screenin Reason For Exam: Triggered on Admission Diagnosis: generalized weakness Open Wound/Cellutlitis/Pressure Ulcers: No Acute Fx/ORIF/Change in wt bearing status: No Severe MUSCULOSKELETAL pain: No ADL Dysfunction: Yes Acute CVA w/Hemiparesis/Hemiplegia: No Decreased Functional Mobility/Strength: Yes Sprain/Strain: No Acute Post-op Mobility Dysfunction: No Total Points: 4 Discharge Exam General Appearance: no apparent distress, thin Neurologic Exam: alert Skin Exam: normal color, warm, dry Respiratory Exam: normal breath sounds, lungs clear, No respiratory distress Cardiovascular Exam: regular rate/rhythm, normal heart sounds Gastrointestinal/Abdomen Exam: soft, No tenderness, No mass Extremity Exam: normal inspection, normal range of motion Final Diagnosis/Problem List - Final Discharge Diagnosis/Problem (1) Acute sinusitis Current Visit: Yes Status: Acute (2) Failure of outpatient treatment Current Visit: Yes Status: Acute (3) Parkinson disease, symptomatic Current Visit: Yes Status: Acute (4) Dehydration Current Visit: Yes Status: Acute (5) Difficulty swallowing Current Visit: Yes Status: Acute - Discharge Disposition: [place] TO [facility] Condition: Fair Prescriptions: Continue Clopidogrel Bisulfate 75 mg [PLAVIX 75 MG Tablet] 75 mg PO DAILY Aspirin 81 gm Chew [Baby Aspirin 81 mg Chew] 81 mg PO DAILY Simvastatin 20 mg PO DAILY Metoprolol Succinate 50 mg [Toprol Xl 50 MG] 25 mg PO BID Oxybutynin Chloride Xl 5 mg [Ditropan XL 5 MG] 5 mg PO BID Pantoprazole Sodium [Protonix] 40 mg PO BID Losartan Potassium [Cozaar] 25 mg PO DAILY Gabapentin 300 mg PO BID Acetaminophen 325 mg [Tylenol 325 mg] 650 mg PO Q4HPRN PRN PRN Reason: Pain And/Or Fever Donepezil HCl 10 mg [Aricept 10 MG] 5 mg PO DAILY Carbidopa/Levodopa [Carbidopa-Levodopa 25-100 Tab] 2 tab PO TID Additional Instructions: [facility] ORDERS: PT/OT EVAL AND TREAT [address] ADA DIET, HONEY THICK LIQUIDS ACCU CHECK AC/HS SEE ATTACHED MED LIST FOR CURRENT MEDS DR. DUBON TO FOLLOW AT [facility]
[2017-12-25] MEDS: ZOCOR 20MG PO SCH (09:41)
[2017-12-25] MEDS: Aricept 10 MG PO SCH (09:42)
[2017-12-25] MEDS: PLAVIX 75 MG Tablet PO SCH (09:42)
[2017-12-25] MEDS: Cozaar 50 MG PO SCH (09:43)
[2017-12-25] MEDS: Toprol-Xl 25MG Tablets PO SCH (09:44)
[2017-12-25] MEDS: Sinemet 25/100 MG PO SCH (09:44)
[2017-12-25] MEDS: Ditropan XL 5 MG PO SCH (09:44)
[2017-12-25] MEDS: ECOTRIN 81 MG PO SCH (09:44)
[2017-12-25] MEDS: NEURONTIN 300 MG PO SCH (09:45)
[2017-12-25] MEDS: DELTASONE 20 MG PO SCH (09:45)
[2017-12-25] MEDS: Protonix 40MG Tablet PO SCH (09:46)
== END 2017-12-25 11:10 | DRG 153 ==
LOC: ED 20:28 → MED SURG 22:37 → OBSVTOIN 12-22 08:41
PROVIDERS: ADMIT Family Medicine; ATTEND Family Medicine
DX: J01.90 Acute sinusitis, unspecified (principal); Z78.9 Other specified health status; R53.1 Weakness; E86.0 Dehydration; R13.10 Dysphagia, unspecified; G20 Parkinson's disease; E78.5 Hyperlipidemia, unspecified; I10 Essential (primary) hypertension; E11.9 Type 2 diabetes mellitus without complications; M19.90 Unspecified osteoarthritis, unspecified site; Z95.1 Presence of aortocoronary bypass graft; Z86.73 Personal history of transient ischemic attack (TIA), and cerebral infarction without residual deficits; E78.00 Pure hypercholesterolemia, unspecified; G62.9 Polyneuropathy, unspecified; Z79.899 Other long term (current) drug therapy
CPT/HCPCS: 36000; 36415; 71045; 80048; 80053; 81000; 82962; 83036; 83605; 84484; 85025; 87040; 87086; 93005; 93268; 94760; 94762; 96360; 96374; 99285; J0696; A9270-GY; G0378

== ENCOUNTER 2018-09-03 09:23 | Observation (INO) | payer MEDICARE ==
--- NOTE | 2018-09-03 10:13 | ERPHSYRPT ---
- History of Present Illness Time Seen by Provider: 09/03/18 10:03 Source: patient Exam Limitations: no limitations Patient Subjective Stated Complaint: pt arrives per EMS, EMS reports that pt was at the breakfast table this morning when staff noticed him to be slow to respond. pt reports being weak and tired for the last 4-5 years. pt deniese pain , at this time. Triage Nursing Assessment: pt is aox3, pt answers questions appropriately, pupils perrl, afebrile, resps easy and non labored, radial pulses strong and equal, cap refill < 3 seconds, abd soft non tender, no edema appreciated. pt appears thin. skin is pale warm dry. Physician History: 83-year-old white male with history of Parkinson's, cataracts, diabetes, hyperlipidemia, arthritis, atherosclerotic coronary artery disease. Patient noted at breakfast at 8:30 AM this morning at [facility] to be slow to respond hard to arouse. Patient currently is alert and oriented he is not having any problems moving he does state he has some pain in his right flank. No chest pain no shortness of breath. Patient's daughter states that he has been being treated for dehydration lately and receiving fluids at the infusion center. Past medical history includes Parkinson's, CVA, right-sided weakness, hyperlipidemia, atherosclerotic coronary disease, high blood pressure, diabetes type 2, cataracts, arthritis,, chronic neuropathic pain. Past surgical history includes CABG, right shoulder surgery, left hip surgery Timing/Duration: today (8:30 AM) Severity: moderate Modifying Factors: Improves With: nothing Associated Symptoms: weakness, other (hard to arouse at breakfast, states he has right flank pain), No nausea, No vomiting, No abdominal pain, No shortness of breath, No heartburn, No diaphoresis, No cough, No chills, No chest pain, No fever, No headaches, No loss of appetite, No malaise, No rash, No syncope, No seizure Allergies/Adverse Reactions: No Known Drug Allergies Allergy (Verified 09/03/18 09:38) Home Medications: Aspirin 81 gm Chew [Baby Aspirin 81 mg Chew] 81 mg PO DAILY 06/10/14 [ History] Clopidogrel Bisulfate 75 mg [PLAVIX 75 MG Tablet] 75 mg PO DAILY 06/10/14 [History] Metoprolol Succinate 50 mg [Toprol Xl 50 MG] 25 mg PO BID 06/10/14 [ History] Simvastatin 20 mg PO DAILY 06/10/14 [History] Oxybutynin Chloride Xl 5 mg [Ditropan XL 5 MG] 10 mg PO BID 11/03/15 [ History] Pantoprazole Sodium [Protonix] 40 mg PO BID 11/03/15 [History] Acetaminophen 325 mg [Tylenol 325 mg] 650 mg PO Q4HPRN PRN 05/04/17 [ History] Carbidopa/Levodopa [Carbidopa-Levodopa 25-100 Tab] 2 tab PO TID 12/21/17 [ History] Docusate Sodium 100 mg [Colace 100 MG] 100 mg PO BID 08/24/18 [History] Gabapentin 300 mg PO TID 08/24/18 [History] Losartan Potassium [Cozaar] 25 mg PO DAILY 08/24/18 [History] Memantine HCl 10 mg PO DAILY 08/24/18 [History] Metformin HCl 500 mg [Glucophage 500 MG] 500 mg PO BIDWM 08/24/18 [History ] Quetiapine Fumarate 25 mg [Seroquel 25 MG] 25 mg PO BID 08/24/18 [History] Hx Tetanus, Diphtheria Vaccination/Date Given: Yes Hx Influenza Vaccination/Date Given: Yes Hx Pneumococcal Vaccination/Date Given: Yes Immunizations Up to Date: Yes - Review of Systems Constitutional: Weakness, Other (hard to arouse at breakfast), No Fever, No Chills Eyes: No Symptoms Ears, Nose, & Throat: No Symptoms Respiratory: No Cough, No Dyspnea Cardiac: No Chest Pain, No Edema, No Syncope Abdominal/Gastrointestinal: No Abdominal Pain, No Nausea, No Vomiting, No Diarrhea Genitourinary Symptoms: Flank Pain (right flank pain) Musculoskeletal: No Back Pain, No Neck Pain Skin: No Rash Neurological: No Dizziness, No Focal Weakness, No Sensory Changes Psychological: No Symptoms Endocrine: No Symptoms All Other Systems: Reviewed and Negative - Past Medical History Pertinent Past Medical History: Yes Neurological History: Stroke ENT History: Cataracts Cardiac History: High Cholesterol, Hypertension Respiratory History: No Pertinent History Endocrine Medical History: Diabetes Type II Musculoskeletal History: Arthritis GI Medical History: No Pertinent History History: No Pertinent History Psycho-Social History: No Pertinent History Male Reproductive Disorders: No Pertinent History Other Medical History: Parkinsons - Past Surgical History Past Surgical History: Yes Neuro Surgical History: No Pertinent History Cardiac: CABG Respiratory: No Pertinent History Gastrointestinal: No Pertinent History Genitourinary: No Pertinent History Musculoskeletal: Orthopedic Surgery Male Surgical History: No Pertinent History Other Surgical History: R SHOULDER SURGERY, LEFT hip - Social History Smoking Status: Never smoker Exposure to second hand smoke: No Alcohol Use: None Drug Use: none Patient Lives Alone: No Significant Family History: no pertinent family hx - Nursing Vital Signs Nursing Vital Signs: Initial Vital Signs Temperature 97.6 F 09/03/18 09:26 Pulse Rate 58 L 09/03/18 09:26 Respiratory Rate 16 09/03/18 09:26 Blood Pressure 99/55 09/03/18 09:26 O2 Sat by Pulse Oximetry 100 09/03/18 09:26 Pain Scale Pain Intensity 0 - Physical Exam General Appearance: other (elderly-appearing male alert oriented 3) Eye Exam: PERRL/EOMI, eyes nml inspection Ears, Nose, Throat Exam: normal ENT inspection Neck Exam: normal inspection, non-tender, supple, full range of motion Respiratory Exam: normal breath sounds, lungs clear, No respiratory distress Cardiovascular Exam: regular rate/rhythm, normal heart sounds, normal peripheral pulses, capillary refill <2 sec Gastrointestinal/Abdomen Exam: soft, normal bowel sounds, No tenderness, No mass Back Exam: normal inspection, normal range of motion, No CVA tenderness, No vertebral tenderness Extremity Exam: normal inspection, normal range of motion, pelvis stable Neurologic Exam: alert, oriented x 3, cooperative, 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 nml as tested, normal mood/affect, nml cerebellar function, nml station & gait, sensation nml, No motor deficits Skin Exam: normal color, warm, dry, No rash SpO2 Interpretation: normal (100%) SpO2: 100 - Course Nursing assessment & vital signs reviewed: Yes EKG Interpreted by Me: RATE (57 bpm), Sinus Tyrell, NORMAL AXIS, Other (EKG: Sinus bradycardia, 57 bpm, T wave inversions in leads 3 aVF, no ST elevation) - Radiology Exams Chest X-ray Interpretation: Interpreted by me (chest x-ray: No acute disease process noted) - CT Exams Head CT Interpretation: Tele-radiologist Report (Head CT: Impression no acute disease process noted) Ordered Tests: Active Orders 24 hr Category Date Time Status Accucheck STAT Care 09/03/18 10:10 Active EKG-ER Only STAT Care 09/03/18 10:08 Active IV Insertion STAT Care 09/03/18 10:08 Active CHEST 1 VIEW (PORTABLE) Stat Exams 09/03/18 10:08 Taken HEAD WITHOUT CONTRAST [CT] Stat Exams 09/03/18 10:10 Taken AMYLASE Stat Lab 09/03/18 09:15 Completed CBC W DIFF Stat Lab 09/03/18 09:15 Completed CMP Stat Lab 09/03/18 09:15 Completed LIPASE Stat Lab 09/03/18 09:15 Completed TROPONIN Q3H Lab 09/03/18 09:15 Completed TROPONIN Q3H Lab 09/03/18 13:15 Ordered TROPONIN Q3H Lab 09/03/18 16:15 Ordered TROPONIN Q3H Lab 09/03/18 19:15 Ordered TROPONIN Q3H Lab 09/03/18 22:15 Ordered UA W/RFX UR CULTURE Stat Lab 09/03/18 10:30 Completed Medication Summary Generic Name Dose Route Start Last Admin Trade Name Freq PRN Reason Stop Dose Admin Sodium Chloride 1,000 mls @ 100 mls/hr 09/03/18 10:15 09/03/18 10:25 Sodium Chloride 0.9% 1000 Ml IV 10/03/18 10:14 100 mls/hr .Q10H POOJA Administration Lab/Rad Data: Laboratory Result Diagrams 09/03/18 09:15 09/03/18 09:15 Laboratory Results 09/03/18 09/03/18 09/03/18 Range/Units 10:30 09:15 09:15 WBC (4.0-10.5) K/mm3 RBC (4.1-5.6) M/mm3 Hgb (12.5-18.0) gm/dl Hct (42-50) % MCV (78-100) fl MCH (26-32) pg MCHC (32-36) g/dl RDW (11.5-14.0) % Plt Count (150-450) K/mm3 MPV (6-9.5) fl Gran % (36.0-66.0) % Eos # (Auto) (0-0.5) Absolute Lymphs (auto) (1.0-4.6) Absolute Monos (auto) (0.0-1.3) Lymphocytes % (24.0-44.0) % Monocytes % (0.0-12.0) % Eosinophils % (0.00-5.0) % Basophils % (0.0-0.4) % Absolute Granulocytes (1.4-6.9) Basophils # (0-0.4) Sodium 143 (137-145) mmol/L Potassium 4.6 (3.5-5.1) mmol/L Chloride 105 (98-107) mmol/L Carbon Dioxide 28 (22-30) mmol/L Anion Gap 15.0 (5-15) MEQ/L BUN 36 H (9-20) mg/dL Creatinine 1.40 H (0.66-1.25) mg/dL Estimated GFR 51.4 ML/MIN Glucose 169 H (74-106) mg/dL Calcium 9.6 (8.4-10.2) mg/dL Total Bilirubin 0.70 (0.2-1.3) mg/dL AST 27 (17-59) U/L ALT 6 (0-50) U/L Alkaline Phosphatase 68 (38-126) U/L Troponin I < 0.012 (0.000-0.034) ng/mL Serum Total Protein 6.6 (6.3-8.2) g/dL Albumin 3.5 (3.5-5.0) g/dL Amylase 105 (30-110) U/L Lipase 179 (23-300) U/L Urine Color YELLOW (YELLOW) Urine Appearance CLEAR (CLEAR) Urine pH 5.0 (5-6) Ur Specific [place] 1.018 (1.005-1.025) Urine Protein 30 (Negative) Urine Ketones TRACE (NEGATIVE) Urine Blood NEGATIVE (0-5) Rai/ul Urine Nitrite NEGATIVE (NEGATIVE) Urine Bilirubin NEGATIVE (NEGATIVE) Urine Urobilinogen NEGATIVE (0-1) mg/dL Ur Leukocyte Esterase NEGATIVE (NEGATIVE) Urine WBC (Auto) NONE (0-5) /HPF Urine RBC (Auto) 0-2 (0-2) /HPF U Epithel Cells (Auto) NONE (FEW) /HPF Urine Mucus (Auto) SLIGHT (NEGATIVE) /HPF Urine Culture Reflexed NO (NO) Urine Glucose NEGATIVE (NEGATIVE) mg/dL 04/27/19 Range/Units 09:15 WBC 11.0 H (4.0-10.5) K/mm3 RBC 4.09 L (4.1-5.6) M/mm3 Hgb 12.7 (12.5-18.0) gm/dl Hct 39.3 L (42-50) % MCV 96.1 (78-100) fl MCH 31.0 (26-32) pg MCHC 32.3 (32-36) g/dl RDW 13.9 (11.5-14.0) % Plt Count 193 (150-450) K/mm3 MPV 11.7 H (6-9.5) fl Gran % 83.6 H (36.0-66.0) % Eos # (Auto) 0.13 (0-0.5) Absolute Lymphs (auto) 1.04 (1.0-4.6) Absolute Monos (auto) 0.60 (0.0-1.3) Lymphocytes % 9.5 L (24.0-44.0) % Monocytes % 5.5 (0.0-12.0) % Eosinophils % 1.2 (0.00-5.0) % Basophils % 0.2 (0.0-0.4) % Absolute Granulocytes 9.20 H (1.4-6.9) Basophils # 0.02 (0-0.4) Sodium (137-145) mmol/L Potassium (3.5-5.1) mmol/L Chloride (98-107) mmol/L Carbon Dioxide (22-30) mmol/L Anion Gap (5-15) MEQ/L BUN (9-20) mg/dL Creatinine (0.66-1.25) mg/dL Estimated GFR ML/MIN Glucose (74-106) mg/dL Calcium (8.4-10.2) mg/dL Total Bilirubin (0.2-1.3) mg/dL AST (17-59) U/L ALT (0-50) U/L Alkaline Phosphatase (38-126) U/L Troponin I (0.000-0.034) ng/mL Serum Total Protein (6.3-8.2) g/dL Albumin (3.5-5.0) g/dL Amylase (30-110) U/L Lipase (23-300) U/L Urine Color (YELLOW) Urine Appearance (CLEAR) Urine pH (5-6) Ur Specific [place] (1.005-1.025) Urine Protein (Negative) Urine Ketones (NEGATIVE) Urine Blood (0-5) Rai/ul Urine Nitrite (NEGATIVE) Urine Bilirubin (NEGATIVE) Urine Urobilinogen (0-1) mg/dL Ur Leukocyte Esterase (NEGATIVE) Urine WBC (Auto) (0-5) /HPF Urine RBC (Auto) (0-2) /HPF U Epithel Cells (Auto) (FEW) /HPF Urine Mucus (Auto) (NEGATIVE) /HPF Urine Culture Reflexed (NO) Urine Glucose (NEGATIVE) mg/dL - Progress Progress: improved Progress Note: 09/03/18 11:58 83-year-old white male arrives with complaint of weakness this morning difficult to arouse at breakfast. Patient on arrival appears to be somewhat weak in appearance blood pressure upper 90s which has gone to 105 for systolic he has been getting normal saline at 100 mL per hour. His daughter states that he has progressive parkinsonism he also comes in from time to time for infusion secondary to dehydration. Patient with an EKG which is remarkable for sinus bradycardia, 57 bpm, normal axis there is T-wave inversions in leads AV after in lead 3 there does not appear to be Acute ST elevation patient's head CT no acute intercranial process chest x-ray is unremarkable Patient's labs white blood cell 11.0 hemoglobin 12.7 hematocrit 39.3 platelets is 193 CBC white blood cell 143 potassium 4.6 chloride 105 bicarbonate 28 BUN 36 creatinine 1.40 the BUN is slightly higher than normal for this patient glucose is 169 troponin is less than 0.017 urinalysis is essentially normal Patient has been receiving IV normal saline in the emergency room. I've discussed the case with Dr. Davies will place patient on observation continue IV normal saline at 100 mL per hour continue serial troponins. And obtain CBC CMP in the morning. Impression weakness. Mental status change resolved. . - Departure Departure Disposition: Observation Clinical Impression: Weakness, Mental status change resolved Condition: Fair Critical Care Time: No Referrals: SAHARA TRIANA MD [Primary Care Provider] -
[2018-09-03 10:15] LABS: BASOPHIL % 0.2 % (0.0-0.4); Basophil (Absolute #) 0.02 (0-0.4); Eosinophil % 1.2 % (0.00-5.0); Eosinophil (Absolute #) 0.13 (0-0.5); Granulocytes % 83.6 % (36.0-66.0); Hematocrit 39.3 % (42-50); Hemoglobin 12.7 gm/dl (12.5-18.0); Lymphocyte (Absolute #) 1.04 (1.0-4.6); Lymphocytes % 9.5 % (24.0-44.0); Mean Cell Volume 96.1 fl (78-100); Mean Corpuscular Hgb Concent. 32.3 g/dl (32-36); Mean Platelet Volume 11.7 fl (6-9.5); Monocytes % 5.5 % (0.0-12.0); Platelet Count 193 K/mm3 (150-450); Red Blood Count 4.09 M/mm3 (4.1-5.6); Red Cell Distribution Width 13.9 % (11.5-14.0)
[2018-09-03] MEDS ORDERED: Sodium Chloride 0.9% 1000 ML 1,000 ML IV SCH (10:15)
[2018-09-03 10:19] LABS: ALBUMIN 3.5 g/dL (3.5-5.0); BILIRUBIN,TOTAL 0.7 mg/dL (0.2-1.3); Calcium 9.6 mg/dL (8.4-10.2); Creatinine 1 1.4 mg/dL (0.66-1.25); Potassium 4.6 mmol/L (3.5-5.1); Total Protein 6.6 g/dL (6.3-8.2)
[2018-09-03] MEDS ORDERED: Sodium Chloride 0.9% 1000 ML 1,000 ML ONE (10:23)
[2018-09-03 10:52] LABS: Appearance CLEAR (CLEAR); Bilirubin NEGATIVE (NEGATIVE); Blood NEGATIVE Ery/ul (0-5); Glucose NEGATIVE (NEGATIVE); Ketones TRACE (NEGATIVE); Leukocyte Esterase NEGATIVE (NEGATIVE); Mucus SLIGHT /HPF (NEGATIVE); Nitrite NEGATIVE (NEGATIVE); Protein,Urine Dip 30 (Negative); RBC 0-2 /HPF (0-2); Specific Gravity 1.018 (1.005-1.025); Urobilinogen NEGATIVE mg/dL (0-1)
[2018-09-03] MEDS ORDERED: NovoLOG Insulin SQ PRN (13:56)
--- NOTE | 2018-09-03 17:45 | XRAY ---
Indication: Decreased level of consciousness. Comparison: December 21, 2017. Portable chest hyperinflated and clear with incidental tiny calcified granulomas. Heart is not enlarged again with previous CABG surgery. Bony thorax intact again with mild osteopenia and degenerative changes. No new/acute findings. Impression: Nonacute chest with chronic features.
--- NOTE | 2018-09-03 17:49 | XRAY ---
Indication: Decreased level of consciousness. Multiple contiguous axial images obtained through the head without contrast. Comparison: July 15, 2017. Stable age-appropriate global atrophy, mild periventricular degenerative micro-ischemia bilaterally, and remote right external capsule lacunar infarct. No acute intracranial hemorrhage, abnormal extra-axial fluid collection, or mass effect. Fourth ventricle is midline without hydrocephalus. Bony calvarium intact. Visualized paranasal sinuses and mastoid air cells are clear. Impression: Stable nonacute senile brain with remote right external capsule lacunar infarct. Comment: Preliminary interpretation was made by [facility]. No critical discrepancy. CTDI 68.81
[2018-09-03] MEDS: Sodium Chloride 0.9% 1000 ML 1,000 ML IV SCH (20:47)
--- NOTE | 2018-09-03 21:36 | PCM.HP ---
History of Present Illness - Chief Complaint Chief Complaint: weakness History of Present Illness: is a 83 year old male pt of Dr. Sosa from [facility], with Parkinson's, DM II, hyperlipidemia, osteoarthritis, CAD (with hx CABG), CVA (with R sided weakness), HTN, and CRF who was admitted after an episode of decreased responsiveness at breakfast. He was slow to respond to staff and was sent to ER. Now he says he really doesn't remember that episode, "I guess I passed out?" CT head neg for acute changes. In ER, his WBC were 11,000, Hgb 12.7, plt 193. BUN 36 and Cr 1.4 which is about usual for this pt. CXR non acute. His bp was 99/55. Now the bp is 144 systolic. He states he is doing better, notes that his speech is much more clear than it was. - Review of Systems Abdominal/Gastrointestinal: Constipation (but had large stool today) Genitourinary Symptoms: Dysuria (some) Skin: Rash (on neck and back) Neurological: Dizziness Psychological: No Depression, No Suicidal Ideations All Other Systems: Unable due to dementia (ROS may not be completely reliable) Medications & Allergies Home Medications: Home Medication List Aspirin 81 gm Chew [Baby Aspirin 81 mg Chew] 81 mg PO DAILY 06/10/14 [ History Confirmed 09/03/18] Clopidogrel Bisulfate 75 mg [PLAVIX 75 MG Tablet] 75 mg PO DAILY 06/10/14 [History Confirmed 09/03/18] Metoprolol Succinate 50 mg [Toprol Xl 50 MG] 25 mg PO BID 06/10/14 [ History Confirmed 09/03/18] Simvastatin 20 mg PO DAILY 06/10/14 [History Confirmed 09/03/18] Oxybutynin Chloride Xl 5 mg [Ditropan XL 5 MG] 10 mg PO DAILY 11/03/15 [ History Confirmed 09/03/18] Pantoprazole Sodium [Protonix] 40 mg PO BID 11/03/15 [History Confirmed 09/03/18 ] Docusate Sodium 100 mg [Colace 100 MG] 100 mg PO BID PRN 08/24/18 [ History Confirmed 09/03/18] Gabapentin 300 mg PO BID 08/24/18 [History Confirmed 09/03/18] Losartan Potassium [Cozaar] 25 mg PO DAILY 08/24/18 [History Confirmed 09/03/18] Memantine HCl 10 mg PO DAILY 08/24/18 [History Confirmed 09/03/18] Metformin HCl 500 mg [Glucophage 500 MG] 500 mg PO BIDWM 08/24/18 [ History Confirmed 09/03/18] Quetiapine Fumarate 25 mg [Seroquel 25 MG] 25 mg PO BID 08/24/18 [History Confirmed 09/03/18] Carbidopa/Levodopa [Carbidopa-Levo 25-250 mg Odt] 1 each PO TID 09/03/18 [ History Confirmed 09/03/18] Allergies/Adverse Reactions: Allergies Allergy/AdvReac Type Severity Reaction Status Date / Time No Known Drug Allergies Allergy Verified 09/03/18 09:38 - Past Medical History Past Medical History: Yes Neurological History: Stroke ENT History: Cataracts Cardiac History: High Cholesterol, Hypertension Respiratory History: No Pertinent History Endocrine Medical History: Diabetes Type II Musculoskelatal History: Arthritis GI Medical History: No Pertinent History History: No Pertinent History Pyscho-Social History: No Pertinent History Male Reproductive Disorders: No Pertinent History Comment: Parkinsons - Past Surgical History Past Surgical History: Yes Neuro Surgical History: No Pertinent History Cardiac History: CABG Respiratory Surgery: No Pertinent History GI Surgical History: No Pertinent History Genitourinary Surgical Hx: No Pertinent History Musculskeletal Surgical Hx: Orthopedic Surgery Male Surgical History: No Pertinent History Other Surgical History: R SHOULDER SURGERY, LEFT hip - Social History Smoking Status: Never smoker Exposure to second hand smoke: No Alcohol: None Drug Use: none Significant Family History: no pertinent family hx - Physical Exam Vital Signs: Vital Signs - 24 hr Temp Pulse Resp BP Pulse Ox 09/03/18 20:00 97.7 F 70 20 166/70 96 09/03/18 15:23 97.8 F 70 20 128/78 96 09/03/18 14:00 98 F 67 18 144/78 09/03/18 13:56 98 F 67 18 144/78 95 09/03/18 13:46 98 F 67 18 144/78 95 09/03/18 13:07 58 L 16 113/58 99 09/03/18 12:16 100 09/03/18 12:11 61 20 127/62 100 09/03/18 10:57 59 L 15 105/56 98 09/03/18 10:00 57 L 16 100/55 98 09/03/18 09:26 97.6 F 58 L 16 99/55 100 General Appearance: no apparent distress, alert, thin Neurologic Exam: cooperative, disoriented (does not know the year. Does know it' s Wednesday and August.) Eye Exam: eyes nml inspection Ears, Nose, Throat Exam: moist mucous membranes Respiratory Exam: normal breath sounds, lungs clear Cardiovascular Exam: regular rate/rhythm, normal heart sounds, No murmur Gastrointestinal/Abdomen Exam: soft, normal bowel sounds, No tenderness, No distention, No mass, No guarding, No rebound Back Exam: normal inspection, No rash Extremity Exam: normal inspection, No pedal edema, No swelling Skin Exam: normal color, warm, dry, No rash Results - Labs Lab/Micro Results: Accuchecks Date 09/03/18 Time 16:30 Accucheck Value: 171 Accucheck Value: 189 Lab Results-Last 24 Hours 09/03/18 09/03/18 09/03/18 Range/Units 09:15 09:15 09:15 WBC 11.0 H (4.0-10.5) K/mm3 RBC 4.09 L (4.1-5.6) M/mm3 Hgb 12.7 (12.5-18.0) gm/dl Hct 39.3 L (42-50) % MCV 96.1 (78-100) fl MCH 31.0 (26-32) pg MCHC 32.3 (32-36) g/dl RDW 13.9 (11.5-14.0) % Plt Count 193 (150-450) K/mm3 MPV 11.7 H (6-9.5) fl Gran % 83.6 H (36.0-66.0) % Eos # (Auto) 0.13 (0-0.5) Absolute Lymphs (auto) 1.04 (1.0-4.6) Absolute Monos (auto) 0.60 (0.0-1.3) Lymphocytes % 9.5 L (24.0-44.0) % Monocytes % 5.5 (0.0-12.0) % Eosinophils % 1.2 (0.00-5.0) % Basophils % 0.2 (0.0-0.4) % Absolute Granulocytes 9.20 H (1.4-6.9) Basophils # 0.02 (0-0.4) Sodium 143 (137-145) mmol/L Potassium 4.6 (3.5-5.1) mmol/L Chloride 105 (98-107) mmol/L Carbon Dioxide 28 (22-30) mmol/L Anion Gap 15.0 (5-15) MEQ/L BUN 36 H (9-20) mg/dL Creatinine 1.40 H (0.66-1.25) mg/dL Estimated GFR 51.4 ML/MIN Glucose 169 H (74-106) mg/dL Hemoglobin A1c (4.5-6.0) % Calcium 9.6 (8.4-10.2) mg/dL Total Bilirubin 0.70 (0.2-1.3) mg/dL AST 27 (17-59) U/L ALT 6 (0-50) U/L Alkaline Phosphatase 68 (38-126) U/L Troponin I < 0.012 (0.000-0.034) ng/mL Serum Total Protein 6.6 (6.3-8.2) g/dL Albumin 3.5 (3.5-5.0) g/dL Prealbumin (17.6-36.0) mg/dL Amylase 105 (30-110) U/L Lipase 179 (23-300) U/L Urine Color (YELLOW) Urine Appearance (CLEAR) Urine pH (5-6) Ur Specific Parrish (1.005-1.025) Urine Protein (Negative) Urine Ketones (NEGATIVE) Urine Blood (0-5) Rai/ul Urine Nitrite (NEGATIVE) Urine Bilirubin (NEGATIVE) Urine Urobilinogen (0-1) mg/dL Ur Leukocyte Esterase (NEGATIVE) Urine WBC (Auto) (0-5) /HPF Urine RBC (Auto) (0-2) /HPF U Epithel Cells (Auto) (FEW) /HPF Urine Mucus (Auto) (NEGATIVE) /HPF Urine Culture Reflexed (NO) Urine Glucose (NEGATIVE) mg/dL 09/03/18 09/03/18 09/03/18 Range/Units 10:30 13:15 14:54 WBC (4.0-10.5) K/mm3 RBC (4.1-5.6) M/mm3 Hgb (12.5-18.0) gm/dl Hct (42-50) % MCV (78-100) fl MCH (26-32) pg MCHC (32-36) g/dl RDW (11.5-14.0) % Plt Count (150-450) K/mm3 MPV (6-9.5) fl Gran % (36.0-66.0) % Eos # (Auto) (0-0.5) Absolute Lymphs (auto) (1.0-4.6) Absolute Monos (auto) (0.0-1.3) Lymphocytes % (24.0-44.0) % Monocytes % (0.0-12.0) % Eosinophils % (0.00-5.0) % Basophils % (0.0-0.4) % Absolute Granulocytes (1.4-6.9) Basophils # (0-0.4) Sodium (137-145) mmol/L Potassium (3.5-5.1) mmol/L Chloride (98-107) mmol/L Carbon Dioxide (22-30) mmol/L Anion Gap (5-15) MEQ/L BUN (9-20) mg/dL Creatinine (0.66-1.25) mg/dL Estimated GFR ML/MIN Glucose (74-106) mg/dL Hemoglobin A1c (4.5-6.0) % Calcium (8.4-10.2) mg/dL Total Bilirubin (0.2-1.3) mg/dL AST (17-59) U/L ALT (0-50) U/L Alkaline Phosphatase (38-126) U/L Troponin I < 0.012 (0.000-0.034) ng/mL Serum Total Protein (6.3-8.2) g/dL Albumin (3.5-5.0) g/dL Prealbumin 17.40 L (17.6-36.0) mg/dL Amylase (30-110) U/L Lipase (23-300) U/L Urine Color YELLOW (YELLOW) Urine Appearance CLEAR (CLEAR) Urine pH 5.0 (5-6) Ur Specific Parrish 1.018 (1.005-1.025) Urine Protein 30 (Negative) Urine Ketones TRACE (NEGATIVE) Urine Blood NEGATIVE (0-5) Rai/ul Urine Nitrite NEGATIVE (NEGATIVE) Urine Bilirubin NEGATIVE (NEGATIVE) Urine Urobilinogen NEGATIVE (0-1) mg/dL Ur Leukocyte Esterase NEGATIVE (NEGATIVE) Urine WBC (Auto) NONE (0-5) /HPF Urine RBC (Auto) 0-2 (0-2) /HPF U Epithel Cells (Auto) NONE (FEW) /HPF Urine Mucus (Auto) SLIGHT (NEGATIVE) /HPF Urine Culture Reflexed NO (NO) Urine Glucose NEGATIVE (NEGATIVE) mg/dL 09/03/18 09/03/18 09/03/18 Range/Units 16:15 19:15 Unknown WBC (4.0-10.5) K/mm3 RBC (4.1-5.6) M/mm3 Hgb (12.5-18.0) gm/dl Hct (42-50) % MCV (78-100) fl MCH (26-32) pg MCHC (32-36) g/dl RDW (11.5-14.0) % Plt Count (150-450) K/mm3 MPV (6-9.5) fl Gran % (36.0-66.0) % Eos # (Auto) (0-0.5) Absolute Lymphs (auto) (1.0-4.6) Absolute Monos (auto) (0.0-1.3) Lymphocytes % (24.0-44.0) % Monocytes % (0.0-12.0) % Eosinophils % (0.00-5.0) % Basophils % (0.0-0.4) % Absolute Granulocytes (1.4-6.9) Basophils # (0-0.4) Sodium (137-145) mmol/L Potassium (3.5-5.1) mmol/L Chloride (98-107) mmol/L Carbon Dioxide (22-30) mmol/L Anion Gap (5-15) MEQ/L BUN (9-20) mg/dL Creatinine (0.66-1.25) mg/dL Estimated GFR ML/MIN Glucose (74-106) mg/dL Hemoglobin A1c 5.70 (4.5-6.0) % Calcium (8.4-10.2) mg/dL Total Bilirubin (0.2-1.3) mg/dL AST (17-59) U/L ALT (0-50) U/L Alkaline Phosphatase (38-126) U/L Troponin I < 0.012 < 0.012 (0.000-0.034) ng/mL Serum Total Protein (6.3-8.2) g/dL Albumin (3.5-5.0) g/dL Prealbumin (17.6-36.0) mg/dL Amylase (30-110) U/L Lipase (23-300) U/L Urine Color (YELLOW) Urine Appearance (CLEAR) Urine pH (5-6) Ur Specific Parrish (1.005-1.025) Urine Protein (Negative) Urine Ketones (NEGATIVE) Urine Blood (0-5) Rai/ul Urine Nitrite (NEGATIVE) Urine Bilirubin (NEGATIVE) Urine Urobilinogen (0-1) mg/dL Ur Leukocyte Esterase (NEGATIVE) Urine WBC (Auto) (0-5) /HPF Urine RBC (Auto) (0-2) /HPF U Epithel Cells (Auto) (FEW) /HPF Urine Mucus (Auto) (NEGATIVE) /HPF Urine Culture Reflexed (NO) Urine Glucose (NEGATIVE) mg/dL Accuchecks Date 09/03/18 Time 16:30 Accucheck Value: 171 Accucheck Value: 189 - Radiology Impressions Radiology Exams & Impressions: Radiology Procedures Category Date Time Status CHEST 1 VIEW (PORTABLE) Stat Exams 09/03/18 10:08 Completed HEAD WITHOUT CONTRAST [CT] Stat Exams 09/03/18 10:10 Completed Assessment/Plan (1) Mental status change resolved Current Visit: Yes Status: Resolved Assessment & Plan: Neuro checks q 4h. Code(s): Z86.59 - PERSONAL HISTORY OF OTHER MENTAL AND BEHAVIORAL DISORDERS (2) Hypertension Current Visit: Yes Status: Acute Qualifiers: Hypertension type: essential hypertension Qualified Code(s): I10 - Essential (primary) hypertension Assessment & Plan: With some low bp this morning - will decrease toprol XL from 25mg po BID to 25mg po once daily. 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 skilled nursing use Diabetes mellitus complication status: with kidney complications Diabetes mellitus complication detail: with chronic kidney disease Chronic kidney disease stage: stage 3 (moderate) Qualified Code(s): E11.22 - Type 2 diabetes mellitus with diabetic chronic kidney disease; N18.3 - Chronic kidney disease, stage 3 (moderate) Code(s): E11.9 - TYPE 2 DIABETES MELLITUS WITHOUT COMPLICATIONS (4) Chronic renal failure Current Visit: Yes Status: Chronic Qualifiers: Chronic kidney disease stage: stage 3 (moderate) Qualified Code(s): N18.3 - Chronic kidney disease, stage 3 (moderate) (5) History of coronary atherosclerosis Current Visit: No Status: Chronic Code(s): Z86.79 - PERSONAL HISTORY OF OTHER DISEASES OF THE CIRCULATORY SYSTEM (6) Parkinson disease, symptomatic Current Visit: No Status: Chronic Code(s): G20 - PARKINSON'S DISEASE
[2018-09-03] MEDS ORDERED: ZOCOR 20MG PO SCH (22:00)
[2018-09-03] MEDS: Seroquel 25 MG PO SCH (22:23)
[2018-09-03] MEDS: Protonix 40MG Tablet PO SCH (22:24)
[2018-09-03] MEDS: NEURONTIN 300 MG PO SCH (22:24)
[2018-09-04] MEDS ORDERED: TYLENOL 325 MG PO PRN (01:25)
[2018-09-04 06:21] LABS: BASOPHIL % 0.3 % (0.0-0.4); Basophil (Absolute #) 0.02 (0-0.4); Eosinophil % 3.5 % (0.00-5.0); Eosinophil (Absolute #) 0.22 (0-0.5); Granulocyte Absolute (ANC) 4.22 (1.4-6.9); Granulocytes % 67.2 % (36.0-66.0); Hematocrit 37.3 % (42-50); Hemoglobin 12.1 gm/dl (12.5-18.0); Lymphocytes % 22.3 % (24.0-44.0); Mean Cell Volume 96.4 fl (78-100); Mean Corpuscular Hgb Concent. 32.4 g/dl (32-36); Mean Platelet Volume 11.1 fl (6-9.5); Monocyte (Absolute #) 0.42 (0.0-1.3); Monocytes % 6.7 % (0.0-12.0); Platelet Count 181 K/mm3 (150-450); Red Blood Count 3.87 M/mm3 (4.1-5.6); Red Cell Distribution Width 14.1 % (11.5-14.0); White Blood Count 6.3 K/mm3 (4.0-10.5)
[2018-09-04 06:24] LABS: Mean Corpuscular Hemoglobin 31.2 pg (26-32)
[2018-09-04 06:42] LABS: ALBUMIN 3.2 g/dL (3.5-5.0); ALKALINE PHOSPHATASE 66 U/L (38-126); ANION GAP 11.3 MEQ/L (5-15); BLOOD UREA NITROGEN 24 mg/dL (9-20); CHLORIDE 107 mmol/L (98-107); Calcium 9.1 mg/dL (8.4-10.2); Carbon Dioxide 29 mmol/L (22-30); Creatinine 1 1.13 mg/dL (0.66-1.25); Glucose 102 mg/dL (74-106); SGOT/AST 14 U/L (17-59); SGPT/ALT 11 U/L (0-50); SODIUM 143 mmol/L (137-145); Total Protein 6.2 g/dL (6.3-8.2)
[2018-09-04 07:25] VITALS: O2SAT 95
[2018-09-04] MEDS ORDERED: Colace 100 MG PO PRN (07:41)
[2018-09-04] MEDS: Sodium Chloride 0.9% 1000 ML 1,000 ML IV SCH (08:15)
[2018-09-04] MEDS ORDERED: NON-FORMULARY ITEM (Losartan Potassium [Cozaar] 25 MG) PO SCH (10:00)
[2018-09-04] MEDS ORDERED: Namenda 5 MG PO SCH (10:00)
[2018-09-04] MEDS ORDERED: Ditropan XL 5 MG PO SCH (10:00)
[2018-09-04] MEDS ORDERED: CARBIDOPA PO SCH (10:00)
[2018-09-04] MEDS ORDERED: ECOTRIN 81 MG PO SCH (10:00)
[2018-09-04] MEDS ORDERED: Sinemet 25/250 MG PO SCH (10:00)
[2018-09-04] MEDS ORDERED: Cozaar 50 MG PO SCH (10:00)
[2018-09-04] MEDS ORDERED: PLAVIX 75 MG Tablet PO SCH (10:00)
[2018-09-04] MEDS ORDERED: Toprol-Xl 25MG Tablets PO SCH (10:00)
[2018-09-04] MEDS ORDERED: LEVODOPA PO SCH (10:00)
[2018-09-04] MEDS ORDERED: NON-FORMULARY ITEM (Memantine Hcl [Memantine Hcl] 10 MG) PO SCH (10:00)
[2018-09-04] MEDS: Protonix 40MG Tablet PO SCH (10:26)
[2018-09-04] MEDS: Seroquel 25 MG PO SCH (10:26)
[2018-09-04] MEDS: NEURONTIN 300 MG PO SCH (10:26)
[2018-09-04 12:22] VITALS: BP 158/70; PULSE 78
--- NOTE | 2018-09-04 12:44 | PCM.DS ---
Discharge Summary Date of Admission: 09/03/18 13:40 Admitting Physician: PAL CHONG Primary Care Provider: SAHARA TRIANA Allergies Allergies No Known Drug Allergies Allergy (Verified 09/03/18 09:38) Hospital Summary - Hospital Course Hospital Course: is a 83 year old male pt of Dr. Triana from [facility] living, with Parkinson's, DM II, hyperlipidemia, osteoarthritis, CAD (with hx CABG), CVA (with R sided weakness), HTN, and CRF who was admitted after an episode of decreased responsiveness at breakfast. He was slow to respond to staff and was sent to ER. CT head neg for acute changes. CXR nonacute. In ER, his WBC were 11,000, Hgb 12.7, plt 193. BUN 36 and Cr 1.4 which is about usual for this pt. Troponins were neg x 5. His bp was 99/55. UA was wnl. WBC this morning 6.3. Hgb 12.1, plt 181. BUN 24 and Cr 1.13 for eGFR > 60. He has been alert and cooperative (when awake) throughout his stay here. Today he is oriented to person, place, and time (although he says the year is "1900"). Overnight I do note a pulse ox of 88% so will ask pt to have an overnight pulse ox study if not done previously. He's complaining that last night he had R leg and arm (and indiates entire R side including face) pain which is chronic and intermittent - better but still present this morning. Dr. Triana has been working this up. He has been up walking today with a walker and seems to think he is about at his baseline. - Vitals & Intake/Output Vital Signs: Vital Signs Temperature 97.8 F 09/04/18 12:20 Pulse Rate 78 09/04/18 12:20 Respiratory Rate 68 H 09/04/18 12:20 Blood Pressure 158/70 09/04/18 12:20 O2 Sat by Pulse Oximetry 95 09/04/18 12:20 Oxygen-Last Documented O2 Percentage 2 Liters = 28% Intake & Output: Intake & Output 09/02/18 09/03/18 09/04/18 09/05/18 11:59 11:59 11:59 11:59 Intake Total 2338 Output Total 525 Balance 1813 Weight 51.8 kg 62.4 kg - Lab Result Diagrams: 09/04/18 05:42 09/04/18 05:42 Lab Results-Last 24 Hrs: Accuchecks Date 09/04/18 Date 09/04/18 Date 09/03/18 Time 07:30 Time 07:30 Time 16:30 Accucheck Value: 111 Accucheck Value: 111 Accucheck Value: 140 Accucheck Value: 171 Lab Results-Last 24 Hours 09/03/18 09/03/18 09/03/18 Range/Units 13:15 14:54 16:15 WBC (4.0-10.5) K/mm3 RBC (4.1-5.6) M/mm3 Hgb (12.5-18.0) gm/dl Hct (42-50) % MCV (78-100) fl MCH (26-32) pg MCHC (32-36) g/dl RDW (11.5-14.0) % Plt Count (150-450) K/mm3 MPV (6-9.5) fl Gran % (36.0-66.0) % Eos # (Auto) (0-0.5) Absolute Lymphs (auto) (1.0-4.6) Absolute Monos (auto) (0.0-1.3) Lymphocytes % (24.0-44.0) % Monocytes % (0.0-12.0) % Eosinophils % (0.00-5.0) % Basophils % (0.0-0.4) % Absolute Granulocytes (1.4-6.9) Basophils # (0-0.4) Sodium (137-145) mmol/L Potassium (3.5-5.1) mmol/L Chloride (98-107) mmol/L Carbon Dioxide (22-30) mmol/L Anion Gap (5-15) MEQ/L BUN (9-20) mg/dL Creatinine (0.66-1.25) mg/dL Estimated GFR ML/MIN Glucose (74-106) mg/dL Hemoglobin A1c (4.5-6.0) % Calcium (8.4-10.2) mg/dL Total Bilirubin (0.2-1.3) mg/dL AST (17-59) U/L ALT (0-50) U/L Alkaline Phosphatase (38-126) U/L Ammonia (9-30) umol/L Troponin I < 0.012 < 0.012 (0.000-0.034) ng/mL Serum Total Protein (6.3-8.2) g/dL Albumin (3.5-5.0) g/dL Prealbumin 17.40 L (17.6-36.0) mg/dL TSH 3rd Generation (0.47-4.68) mIU/L 09/03/18 09/03/18 09/03/18 Range/Units 19:15 22:24 22:24 WBC (4.0-10.5) K/mm3 RBC (4.1-5.6) M/mm3 Hgb (12.5-18.0) gm/dl Hct (42-50) % MCV (78-100) fl MCH (26-32) pg MCHC (32-36) g/dl RDW (11.5-14.0) % Plt Count (150-450) K/mm3 MPV (6-9.5) fl Gran % (36.0-66.0) % Eos # (Auto) (0-0.5) Absolute Lymphs (auto) (1.0-4.6) Absolute Monos (auto) (0.0-1.3) Lymphocytes % (24.0-44.0) % Monocytes % (0.0-12.0) % Eosinophils % (0.00-5.0) % Basophils % (0.0-0.4) % Absolute Granulocytes (1.4-6.9) Basophils # (0-0.4) Sodium (137-145) mmol/L Potassium (3.5-5.1) mmol/L Chloride (98-107) mmol/L Carbon Dioxide (22-30) mmol/L Anion Gap (5-15) MEQ/L BUN (9-20) mg/dL Creatinine (0.66-1.25) mg/dL Estimated GFR ML/MIN Glucose (74-106) mg/dL Hemoglobin A1c (4.5-6.0) % Calcium (8.4-10.2) mg/dL Total Bilirubin (0.2-1.3) mg/dL AST (17-59) U/L ALT (0-50) U/L Alkaline Phosphatase (38-126) U/L Ammonia (9-30) umol/L Troponin I < 0.012 < 0.012 (0.000-0.034) ng/mL Serum Total Protein (6.3-8.2) g/dL Albumin (3.5-5.0) g/dL Prealbumin (17.6-36.0) mg/dL TSH 3rd Generation 1.520 (0.47-4.68) mIU/L 09/03/18 09/03/18 09/04/18 Range/Units 22:24 Unknown 05:42 WBC 6.3 (4.0-10.5) K/mm3 RBC 3.87 L (4.1-5.6) M/mm3 Hgb 12.1 L (12.5-18.0) gm/dl Hct 37.3 L (42-50) % MCV 96.4 (78-100) fl MCH 31.2 (26-32) pg MCHC 32.4 (32-36) g/dl RDW 14.1 H (11.5-14.0) % Plt Count 181 (150-450) K/mm3 MPV 11.1 H (6-9.5) fl Gran % 67.2 H (36.0-66.0) % Eos # (Auto) 0.22 (0-0.5) Absolute Lymphs (auto) 1.40 (1.0-4.6) Absolute Monos (auto) 0.42 (0.0-1.3) Lymphocytes % 22.3 L (24.0-44.0) % Monocytes % 6.7 (0.0-12.0) % Eosinophils % 3.5 (0.00-5.0) % Basophils % 0.3 (0.0-0.4) % Absolute Granulocytes 4.22 (1.4-6.9) Basophils # 0.02 (0-0.4) Sodium (137-145) mmol/L Potassium (3.5-5.1) mmol/L Chloride (98-107) mmol/L Carbon Dioxide (22-30) mmol/L Anion Gap (5-15) MEQ/L BUN (9-20) mg/dL Creatinine (0.66-1.25) mg/dL Estimated GFR ML/MIN Glucose (74-106) mg/dL Hemoglobin A1c 5.70 (4.5-6.0) % Calcium (8.4-10.2) mg/dL Total Bilirubin (0.2-1.3) mg/dL AST (17-59) U/L ALT (0-50) U/L Alkaline Phosphatase (38-126) U/L Ammonia < 9 L (9-30) umol/L Troponin I (0.000-0.034) ng/mL Serum Total Protein (6.3-8.2) g/dL Albumin (3.5-5.0) g/dL Prealbumin (17.6-36.0) mg/dL TSH 3rd Generation (0.47-4.68) mIU/L 09/04/18 Range/Units 05:42 WBC (4.0-10.5) K/mm3 RBC (4.1-5.6) M/mm3 Hgb (12.5-18.0) gm/dl Hct (42-50) % MCV (78-100) fl MCH (26-32) pg MCHC (32-36) g/dl RDW (11.5-14.0) % Plt Count (150-450) K/mm3 MPV (6-9.5) fl Gran % (36.0-66.0) % Eos # (Auto) (0-0.5) Absolute Lymphs (auto) (1.0-4.6) Absolute Monos (auto) (0.0-1.3) Lymphocytes % (24.0-44.0) % Monocytes % (0.0-12.0) % Eosinophils % (0.00-5.0) % Basophils % (0.0-0.4) % Absolute Granulocytes (1.4-6.9) Basophils # (0-0.4) Sodium 143 (137-145) mmol/L Potassium 4.0 (3.5-5.1) mmol/L Chloride 107 (98-107) mmol/L Carbon Dioxide 29 (22-30) mmol/L Anion Gap 11.3 (5-15) MEQ/L BUN 24 H (9-20) mg/dL Creatinine 1.13 (0.66-1.25) mg/dL Estimated GFR > 60.0 ML/MIN Glucose 102 (74-106) mg/dL Hemoglobin A1c (4.5-6.0) % Calcium 9.1 (8.4-10.2) mg/dL Total Bilirubin 0.60 (0.2-1.3) mg/dL AST 14 L (17-59) U/L ALT 11 (0-50) U/L Alkaline Phosphatase 66 (38-126) U/L Ammonia (9-30) umol/L Troponin I (0.000-0.034) ng/mL Serum Total Protein 6.2 L (6.3-8.2) g/dL Albumin 3.2 L (3.5-5.0) g/dL Prealbumin (17.6-36.0) mg/dL TSH 3rd Generation (0.47-4.68) mIU/L Micro Results-Entire Visit: Accuchecks Date 09/04/18 Date 09/04/18 Date 09/03/18 Time 07:30 Time 07:30 Time 16:30 Accucheck Value: 111 Accucheck Value: 111 Accucheck Value: 140 Accucheck Value: 171 - Radiology Exams Ordered Rad Exams-Entire Visit: Radiology Procedures Category Date Time Status CHEST 1 VIEW (PORTABLE) Stat Exams 09/03/18 10:08 Completed HEAD WITHOUT CONTRAST [CT] Stat Exams 09/03/18 10:10 Completed - Procedures and Test Procedures and Tests throughout Hospitalization: Therapy Orders & Screens 09/04/18 04:17 Oxygen Oxymask LPM 2% Comment: Diagnosis: weakness 09/04/18 07:00 Respiratory Therapy Assessment DAILY Comment: Diagnosis: weakness 09/04/18 12:38 Home Sleep Study ONCE Comment: Diagnosis: weakness Discharge Exam General Appearance: no apparent distress, alert Neurologic Exam: oriented x 3, cooperative, No slurred speech Skin Exam: normal color, warm, dry, No rash Neck Exam: normal inspection Respiratory Exam: normal breath sounds, lungs clear, No crackles/rales, No rhonchi, No wheezing Cardiovascular Exam: regular rate/rhythm, normal heart sounds, No murmur Gastrointestinal/Abdomen Exam: soft, normal bowel sounds, No tenderness, No distention, No mass, No guarding, No rebound Extremity Exam: normal inspection, No pedal edema, No swelling Back Exam: normal inspection, No rash Final Diagnosis/Problem List - Final Discharge Diagnosis/Problem (1) Mental status change resolved Current Visit: Yes Status: Resolved Assessment & Plan: September have been related to hypotension, may be related to Parkinson's disease. At any rate, has been resolved since hospital admission and workup was negative. I did change his metoprolol succinate from 25mg po BID to 25mg po once daily. Back to [facility] today. Code(s): Z86.59 - PERSONAL HISTORY OF OTHER MENTAL AND BEHAVIORAL DISORDERS (2) Hypertension Current Visit: Yes Status: Chronic Code(s): I10 - ESSENTIAL (PRIMARY) HYPERTENSION (3) Diabetes mellitus Current Visit: Yes Status: Chronic Code(s): E11.9 - TYPE 2 DIABETES MELLITUS WITHOUT COMPLICATIONS (4) Chronic renal failure Current Visit: Yes Status: Chronic Assessment & Plan: renal function very good this morning. (5) History of coronary atherosclerosis Current Visit: No Status: Chronic Code(s): Z86.79 - PERSONAL HISTORY OF OTHER DISEASES OF THE CIRCULATORY SYSTEM (6) Parkinson disease, symptomatic Current Visit: No Status: Chronic Code(s): G20 - PARKINSON'S DISEASE (7) Gait abnormality Current Visit: Yes Status: Acute Assessment & Plan: has a rollator walker at home. Code(s): R26.9 - UNSPECIFIED ABNORMALITIES OF GAIT AND MOBILITY (8) Hypoxemia Current Visit: Yes Status: Acute Assessment & Plan: He briefly had to wear oxygen last night. Will get overnight pulse ox study at home. Code(s): R09.02 - HYPOXEMIA - Discharge Disposition: Home, Self-Care Condition: Stable Prescriptions: New Metoprolol Succinate 25 mg Xl* [Toprol-Xl 25MG Tablets] 25 mg PO DAILY # 30 tab Continue Clopidogrel Bisulfate 75 mg [PLAVIX 75 MG Tablet] 75 mg PO DAILY Aspirin 81 gm Chew [Baby Aspirin 81 mg Chew] 81 mg PO DAILY Simvastatin 20 mg PO DAILY Oxybutynin Chloride Xl 5 mg [Ditropan XL 5 MG] 10 mg PO DAILY Pantoprazole Sodium [Protonix] 40 mg PO BID Metformin HCl 500 mg [Glucophage 500 MG] 500 mg PO BIDWM Docusate Sodium 100 mg [Colace 100 MG] 100 mg PO BID PRN PRN Reason: Constipation Losartan Potassium [Cozaar] 25 mg PO DAILY Quetiapine Fumarate 25 mg [Seroquel 25 MG] 25 mg PO BID Gabapentin 300 mg PO BID Memantine HCl 10 mg PO DAILY Carbidopa/Levodopa [Carbidopa-Levo 25-250 mg Odt] 1 each PO TID Discontinued Metoprolol Succinate 50 mg [Toprol Xl 50 MG] 25 mg PO BID Follow up with: SAHARA TRIANA MD [Primary Care Provider] - 1 Week
== END 2018-09-04 14:15 | disposition home or self-care (01) ==
LOC: ED 09:23 → MED SURG 13:40
PROVIDERS: ADMIT Family Medicine; ATTEND Family Medicine
DX: R41.82 Altered mental status, unspecified (principal); I10 Essential (primary) hypertension; E11.9 Type 2 diabetes mellitus without complications; N18.3 Chronic kidney disease, stage 3 (moderate); G20 Parkinson's disease; R42 Dizziness and giddiness; Z86.79 Personal history of other diseases of the circulatory system; R26.9 Unspecified abnormalities of gait and mobility; R09.02 Hypoxemia; Z79.01 Long term (current) use of anticoagulants; Z79.899 Other long term (current) drug therapy; E78.5 Hyperlipidemia, unspecified; M19.90 Unspecified osteoarthritis, unspecified site; Z95.1 Presence of aortocoronary bypass graft; R21 Rash and other nonspecific skin eruption; E78.00 Pure hypercholesterolemia, unspecified
CPT/HCPCS: 36415; 70450; 71045; 80053; 81001; 82140; 82150; 82962; 83036; 83690; 84134; 84443; 84484; 85025; 93005; 93268; 94762; 96360; 96361; 99285; G0378; A9270-GY

== ENCOUNTER 2018-09-13 09:24 | Emergency (ER) | payer MEDICARE ==
[2018-09-13] MEDS ORDERED: Sodium Chloride 0.9% 1000 ML 1,000 ML IV STA (09:28)
--- NOTE | 2018-09-13 09:35 | ERPHSYRPT ---
- History of Present Illness Time Seen by Provider: 09/13/18 09:31 Source: patient, EMS Exam Limitations: clinical condition Physician History: mild to mod general weakness today, 86% O2sat at [place], no injury, no fever, hx nonambulatory, no NV, poor historian Allergies/Adverse Reactions: No Known Drug Allergies Allergy (Verified 09/13/18 10:02) Home Medications: Aspirin 81 gm Chew [Baby Aspirin 81 mg Chew] 81 mg PO DAILY 06/10/14 [ History] Clopidogrel Bisulfate 75 mg [PLAVIX 75 MG Tablet] 75 mg PO DAILY 06/10/14 [History] Simvastatin 20 mg PO DAILY 06/10/14 [History] Oxybutynin Chloride Xl 5 mg [Ditropan XL 5 MG] 10 mg PO DAILY 11/03/15 [ History] Pantoprazole Sodium [Protonix] 40 mg PO BID 11/03/15 [History] Docusate Sodium 100 mg [Colace 100 MG] 100 mg PO BID PRN 08/24/18 [History ] Gabapentin 300 mg PO BID 08/24/18 [History] Losartan Potassium [Cozaar] 25 mg PO DAILY 08/24/18 [History] Memantine HCl 10 mg PO DAILY 08/24/18 [History] Metformin HCl 500 mg [Glucophage 500 MG] 500 mg PO BIDWM 08/24/18 [History ] Quetiapine Fumarate 25 mg [Seroquel 25 MG] 25 mg PO BID 08/24/18 [History] Carbidopa/Levodopa [Carbidopa-Levo 25-250 mg Odt] 1 each PO TID 09/03/18 [ History] Hx Tetanus, Diphtheria Vaccination/Date Given: Yes Hx Influenza Vaccination/Date Given: Yes Hx Pneumococcal Vaccination/Date Given: Yes - Review of Systems Constitutional: No Fever Eyes: No Eye Redness Respiratory: No Dyspnea Cardiac: No Chest Pain Abdominal/Gastrointestinal: No Abdominal Pain, No Vomiting Musculoskeletal: No Neck Pain Skin: No Rash Neurological: No Focal Weakness - Past Medical History Pertinent Past Medical History: Yes Neurological History: Stroke ENT History: Cataracts Cardiac History: High Cholesterol, Hypertension Respiratory History: No Pertinent History Endocrine Medical History: Diabetes Type II Musculoskeletal History: Arthritis GI Medical History: No Pertinent History History: No Pertinent History Psycho-Social History: No Pertinent History Male Reproductive Disorders: No Pertinent History Other Medical History: Parkinsons - Past Surgical History Past Surgical History: Yes Neuro Surgical History: No Pertinent History Cardiac: CABG Respiratory: No Pertinent History Gastrointestinal: No Pertinent History Genitourinary: No Pertinent History Musculoskeletal: Orthopedic Surgery Male Surgical History: No Pertinent History Other Surgical History: R SHOULDER SURGERY, LEFT hip - Social History Smoking Status: Never smoker Exposure to second hand smoke: No Alcohol Use: None Drug Use: none Patient Lives Alone: No Significant Family History: no pertinent family hx - Nursing Vital Signs Nursing Vital Signs: Initial Vital Signs Pulse Rate 62 09/13/18 09:29 Respiratory Rate 16 09/13/18 09:29 Blood Pressure 85/53 09/13/18 09:29 O2 Sat by Pulse Oximetry 94 L 09/13/18 09:29 Pain Scale Pain Intensity 0 - Physical Exam General Appearance: no apparent distress Eye Exam: PERRL/EOMI Ears, Nose, Throat Exam: dry mucous membranes Neck Exam: No meningismus Respiratory Exam: normal breath sounds, No respiratory distress Cardiovascular Exam: regular rate/rhythm Gastrointestinal/Abdomen Exam: soft, No tenderness Back Exam: No vertebral tenderness Extremity Exam: pelvis stable 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 Skin Exam: normal color, warm, dry - Course Nursing assessment & vital signs reviewed: Yes EKG Interpreted by Me: Sinus Rhythm, Other (no stemi) - Radiology Exams Chest X-ray Interpretation: Discussed w/ radiologist, Negative - CT Exams Head CT Interpretation: Negative, Tele-radiologist Report Ordered Tests: Active Orders 24 hr Category Date Time Status Lockstitch Waistline Joiner STAT Care 09/13/18 09:29 Active EKG-ER Only STAT Care 09/13/18 09:28 Active IV Insertion STAT Care 09/13/18 09:28 Active Oxygen-ED Only Nasal Cannula 2 lpm Care 09/13/18 09:28 Active CHEST 1 VIEW (PORTABLE) Stat Exams 09/13/18 09:28 Completed HEAD WITHOUT CONTRAST [CT] Stat Exams 09/13/18 09:30 Completed BLOOD CULTURE Stat Lab 09/13/18 09:40 Received CBC W DIFF Stat Lab 09/13/18 09:30 Completed CMP Stat Lab 09/13/18 09:30 Completed CULTURE,URINE Stat Lab 09/13/18 10:15 Received Lactic Acid Stat Lab 09/13/18 09:45 Completed PROTIME WITH INR Stat Lab 09/13/18 09:30 Completed TROPONIN Q3H Lab 09/13/18 09:30 Completed TROPONIN Q3H Lab 09/13/18 12:30 Ordered TROPONIN Q3H Lab 09/13/18 15:30 Ordered TROPONIN Q3H Lab 09/13/18 18:30 Ordered TROPONIN Q3H Lab 09/13/18 21:30 Ordered UA W/RFX UR CULTURE Stat Lab 09/13/18 10:15 Completed Urine Triage Profile Stat Lab 09/13/18 09:50 Completed Medication Summary Discontinued Medications Generic Name Dose Route Start Last Admin Trade Name Freq PRN Reason Stop Dose Admin Sodium Chloride 1,000 mls @ 999 mls/hr 09/13/18 09:28 09/13/18 09:46 Sodium Chloride 0.9% 1000 Ml IV 09/13/18 10:28 999 mls/hr .Q1H1M STA Administration Sodium Chloride Confirm 09/13/18 09:45 Sodium Chloride 0.9% 1000 Ml Administered 09/13/18 09:46 Dose 1,000 mls @ ud .ROUTE .STK-MED ONE Lab/Rad Data: Laboratory Result Diagrams 09/13/18 09:30 09/13/18 09:30 Laboratory Results 09/13/18 09/13/18 09/13/18 Range/Units 10:15 09:50 09:45 WBC (4.0-10.5) K/mm3 RBC (4.1-5.6) M/mm3 Hgb (12.5-18.0) gm/dl Hct (42-50) % MCV (78-100) fl MCH (26-32) pg MCHC (32-36) g/dl RDW (11.5-14.0) % Plt Count (150-450) K/mm3 MPV (6-9.5) fl Gran % (36.0-66.0) % Eos # (Auto) (0-0.5) Absolute Lymphs (auto) (1.0-4.6) Absolute Monos (auto) (0.0-1.3) Lymphocytes % (24.0-44.0) % Monocytes % (0.0-12.0) % Eosinophils % (0.00-5.0) % Basophils % (0.0-0.4) % Absolute Granulocytes (1.4-6.9) Basophils # (0-0.4) PT (8.83-12.87) SECONDS INR (0.8-3.0) Sodium (137-145) mmol/L Potassium (3.5-5.1) mmol/L Chloride (98-107) mmol/L Carbon Dioxide (22-30) mmol/L Anion Gap (5-15) MEQ/L BUN (9-20) mg/dL Creatinine (0.66-1.25) mg/dL Estimated GFR ML/MIN Glucose (74-106) mg/dL Lactic Acid 1.7 (0.4-2.0) Calcium (8.4-10.2) mg/dL Total Bilirubin (0.2-1.3) mg/dL AST (17-59) U/L ALT (0-50) U/L Alkaline Phosphatase (38-126) U/L Troponin I (0.000-0.034) ng/mL Serum Total Protein (6.3-8.2) g/dL Albumin (3.5-5.0) g/dL Urine Color YELLOW (YELLOW) Urine Appearance CLEAR (CLEAR) Urine pH 5.0 (5-6) Ur Specific [place] 1.016 (1.005-1.025) Urine Protein 30 (Negative) Urine Ketones TRACE (NEGATIVE) Urine Blood NEGATIVE (0-5) Rai/ul Urine Nitrite NEGATIVE (NEGATIVE) Urine Bilirubin NEGATIVE (NEGATIVE) Urine Urobilinogen NEGATIVE (0-1) mg/dL Ur Leukocyte Esterase TRACE (NEGATIVE) Urine WBC (Auto) 3-5 (0-5) /HPF Urine RBC (Auto) 6-10 (0-2) /HPF U Hyaline Cast (Auto) 0-2 (0-2) /LPF U Epithel Cells (Auto) RARE (FEW) /HPF Urine Bacteria (Auto) RARE (NEGATIVE) /HPF Urine Culture Reflexed YES (NO) Urine Glucose NEGATIVE (NEGATIVE) mg/dL Urine Opiates Level NEGATIVE (NEGATIVE) Ur Methadone NEGATIVE (NEGATIVE) Urine Barbiturates NEGATIVE (NEGATIVE) Ur Phencyclidine (PCP) NEGATIVE (NEGATIVE) Urine Amphetamine NEGATIVE (NEGATIVE) U Benzodiazepine Level NEGATIVE (NEGATIVE) Urine Cocaine NEGATIVE (NEGATIVE) Urine Marijuana (THC) NEGATIVE (NEGATIVE) 09/13/18 09/13/18 09/13/18 Range/Units 09:30 09:30 09:30 WBC (4.0-10.5) K/mm3 RBC (4.1-5.6) M/mm3 Hgb (12.5-18.0) gm/dl Hct (42-50) % MCV (78-100) fl MCH (26-32) pg MCHC (32-36) g/dl RDW (11.5-14.0) % Plt Count (150-450) K/mm3 MPV (6-9.5) fl Gran % (36.0-66.0) % Eos # (Auto) (0-0.5) Absolute Lymphs (auto) (1.0-4.6) Absolute Monos (auto) (0.0-1.3) Lymphocytes % (24.0-44.0) % Monocytes % (0.0-12.0) % Eosinophils % (0.00-5.0) % Basophils % (0.0-0.4) % Absolute Granulocytes (1.4-6.9) Basophils # (0-0.4) PT 14.5 H (8.83-12.87) SECONDS INR 1.24 (0.8-3.0) Sodium 143 (137-145) mmol/L Potassium 4.8 (3.5-5.1) mmol/L Chloride 101 (98-107) mmol/L Carbon Dioxide 30 (22-30) mmol/L Anion Gap 16.4 H (5-15) MEQ/L BUN 36 H (9-20) mg/dL Creatinine 1.36 H (0.66-1.25) mg/dL Estimated GFR 53.2 ML/MIN Glucose 155 H (74-106) mg/dL Lactic Acid (0.4-2.0) Calcium 9.7 (8.4-10.2) mg/dL Total Bilirubin 0.70 (0.2-1.3) mg/dL AST 17 (17-59) U/L ALT 6 (0-50) U/L Alkaline Phosphatase 69 (38-126) U/L Troponin I < 0.012 (0.000-0.034) ng/mL Serum Total Protein 6.7 (6.3-8.2) g/dL Albumin 3.5 (3.5-5.0) g/dL Urine Color (YELLOW) Urine Appearance (CLEAR) Urine pH (5-6) Ur Specific [place] (1.005-1.025) Urine Protein (Negative) Urine Ketones (NEGATIVE) Urine Blood (0-5) Rai/ul Urine Nitrite (NEGATIVE) Urine Bilirubin (NEGATIVE) Urine Urobilinogen (0-1) mg/dL Ur Leukocyte Esterase (NEGATIVE) Urine WBC (Auto) (0-5) /HPF Urine RBC (Auto) (0-2) /HPF U Hyaline Cast (Auto) (0-2) /LPF U Epithel Cells (Auto) (FEW) /HPF Urine Bacteria (Auto) (NEGATIVE) /HPF Urine Culture Reflexed (NO) Urine Glucose (NEGATIVE) mg/dL Urine Opiates Level (NEGATIVE) Ur Methadone (NEGATIVE) Urine Barbiturates (NEGATIVE) Ur Phencyclidine (PCP) (NEGATIVE) Urine Amphetamine (NEGATIVE) U Benzodiazepine Level (NEGATIVE) Urine Cocaine (NEGATIVE) Urine Marijuana (THC) (NEGATIVE) 09/13/18 Range/Units 09:30 WBC 9.2 (4.0-10.5) K/mm3 RBC 3.88 L (4.1-5.6) M/mm3 Hgb 12.1 L (12.5-18.0) gm/dl Hct 37.8 L (42-50) % MCV 97.4 (78-100) fl MCH 31.1 (26-32) pg MCHC 32.0 (32-36) g/dl RDW 14.0 (11.5-14.0) % Plt Count 206 (150-450) K/mm3 MPV 10.9 H (6-9.5) fl Gran % 80.8 H (36.0-66.0) % Eos # (Auto) 0.09 (0-0.5) Absolute Lymphs (auto) 1.01 (1.0-4.6) Absolute Monos (auto) 0.65 (0.0-1.3) Lymphocytes % 11.0 L (24.0-44.0) % Monocytes % 7.0 (0.0-12.0) % Eosinophils % 1.0 (0.00-5.0) % Basophils % 0.2 (0.0-0.4) % Absolute Granulocytes 7.45 H (1.4-6.9) Basophils # 0.02 (0-0.4) PT (8.83-12.87) SECONDS INR (0.8-3.0) Sodium (137-145) mmol/L Potassium (3.5-5.1) mmol/L Chloride (98-107) mmol/L Carbon Dioxide (22-30) mmol/L Anion Gap (5-15) MEQ/L BUN (9-20) mg/dL Creatinine (0.66-1.25) mg/dL Estimated GFR ML/MIN Glucose (74-106) mg/dL Lactic Acid (0.4-2.0) Calcium (8.4-10.2) mg/dL Total Bilirubin (0.2-1.3) mg/dL AST (17-59) U/L ALT (0-50) U/L Alkaline Phosphatase (38-126) U/L Troponin I (0.000-0.034) ng/mL Serum Total Protein (6.3-8.2) g/dL Albumin (3.5-5.0) g/dL Urine Color (YELLOW) Urine Appearance (CLEAR) Urine pH (5-6) Ur Specific [place] (1.005-1.025) Urine Protein (Negative) Urine Ketones (NEGATIVE) Urine Blood (0-5) Rai/ul Urine Nitrite (NEGATIVE) Urine Bilirubin (NEGATIVE) Urine Urobilinogen (0-1) mg/dL Ur Leukocyte Esterase (NEGATIVE) Urine WBC (Auto) (0-5) /HPF Urine RBC (Auto) (0-2) /HPF U Hyaline Cast (Auto) (0-2) /LPF U Epithel Cells (Auto) (FEW) /HPF Urine Bacteria (Auto) (NEGATIVE) /HPF Urine Culture Reflexed (NO) Urine Glucose (NEGATIVE) mg/dL Urine Opiates Level (NEGATIVE) Ur Methadone (NEGATIVE) Urine Barbiturates (NEGATIVE) Ur Phencyclidine (PCP) (NEGATIVE) Urine Amphetamine (NEGATIVE) U Benzodiazepine Level (NEGATIVE) Urine Cocaine (NEGATIVE) Urine Marijuana (THC) (NEGATIVE) - Progress Progress: improved Progress Note: 09/13/18 11:29 pt improved w/ iv hydration, vss, O2sat RA normal, daughter wants to take pt back to assisted living, see Dr Triana, return if worse, continue present medical regimen - Departure Departure Disposition: Extended Care Facility Clinical Impression: Dehydration Condition: Stable Critical Care Time: No Referrals: SAHARA TRIANA MD [Primary Care Provider] -
[2018-09-13] MEDS ORDERED: Sodium Chloride 0.9% 1000 ML 1,000 ML ONE (09:45)
[2018-09-13 09:51] LABS: BASOPHIL % 0.2 % (0.0-0.4); Basophil (Absolute #) 0.02 (0-0.4); Eosinophil (Absolute #) 0.09 (0-0.5); Granulocyte Absolute (ANC) 7.45 (1.4-6.9); Granulocytes % 80.8 % (36.0-66.0); Hematocrit 37.8 % (42-50); Hemoglobin 12.1 gm/dl (12.5-18.0); Lymphocyte (Absolute #) 1.01 (1.0-4.6); Mean Cell Volume 97.4 fl (78-100); Mean Platelet Volume 10.9 fl (6-9.5); Monocyte (Absolute #) 0.65 (0.0-1.3); Platelet Count 206 K/mm3 (150-450); Red Blood Count 3.88 M/mm3 (4.1-5.6); White Blood Count 9.2 K/mm3 (4.0-10.5)
[2018-09-13 09:54] LABS: INR 1.24 (0.8-3.0); PROTIME 14.5 SECONDS (8.83-12.87)
[2018-09-13 10:00] LABS: ALBUMIN 3.5 g/dL (3.5-5.0); ANION GAP 16.4 MEQ/L (5-15); BILIRUBIN,TOTAL 0.7 mg/dL (0.2-1.3); Calcium 9.7 mg/dL (8.4-10.2); Creatinine 1 1.36 mg/dL (0.66-1.25); Mean Corpuscular Hemoglobin 31.1 pg (26-32); Potassium 4.8 mmol/L (3.5-5.1); Total Protein 6.7 g/dL (6.3-8.2)
[2018-09-13 10:17] LABS: Amphetamine,Urine NEGATIVE (NEGATIVE); Barbiturate,Urine NEGATIVE (NEGATIVE); Benzodiazepine,Urine NEGATIVE (NEGATIVE); Cocaine,Urine NEGATIVE (NEGATIVE); Methadone,Urine NEGATIVE (NEGATIVE); Opiate,Urine NEGATIVE (NEGATIVE); PCP,Urine NEGATIVE (NEGATIVE); THC,Urine NEGATIVE (NEGATIVE)
--- NOTE | 2018-09-13 10:34 | XRAY ---
Indication: Generalized weakness. Multiple contiguous axial images obtained through the head without contrast. Comparison: September 03, 2018. Stable age-appropriate global atrophy, mild periventricular degenerative micro-ischemia bilaterally, and remote right external capsule lacunar infarct. Again no acute intracranial hemorrhage, abnormal extra-axial fluid collection, or mass effect. Fourth ventricle is midline without hydrocephalus. Bony calvarium intact. Visualized paranasal sinuses and mastoid air cells are clear. Impression: Stable nonacute senile brain with remote right external capsule lacunar infarct. CTDI 70.80
--- NOTE | 2018-09-13 10:36 | XRAY ---
Indication: Weakness. Comparison: September 03, 2018. Portable chest remains hyperinflated and clear with incidental calcified granulomas and overlying monitoring leads. Heart and mediastinal structures within normal limits again with CABG surgery. No new/acute findings.
[2018-09-13 10:49] LABS: Appearance CLEAR (CLEAR); Bilirubin NEGATIVE (NEGATIVE); Blood NEGATIVE Ery/ul (0-5); Glucose NEGATIVE (NEGATIVE); Hyaline Casts 0-2 /LPF (0-2); Ketones TRACE (NEGATIVE); Leukocyte Esterase TRACE (NEGATIVE); Nitrite NEGATIVE (NEGATIVE); Protein,Urine Dip 30 (Negative); Specific Gravity 1.016 (1.005-1.025); Urobilinogen NEGATIVE mg/dL (0-1)
[2018-09-13 10:51] LABS: Bacteria RARE /HPF (NEGATIVE); Epithelial Cells RARE /HPF (FEW)
[2018-09-13 12:53] VITALS: BP 144/69; PULSE 58; O2SAT 97
== END 2018-09-13 14:41 ==
LOC: ED 09:24
DX: E86.0 Dehydration (principal); I10 Essential (primary) hypertension; E11.9 Type 2 diabetes mellitus without complications; M19.90 Unspecified osteoarthritis, unspecified site; G20 Parkinson's disease; Z79.899 Other long term (current) drug therapy; Z86.73 Personal history of transient ischemic attack (TIA), and cerebral infarction without residual deficits
CPT/HCPCS: 36000; 36415; 51702; 70450; 71045; 80053; 80307; 81001; 83605; 84484; 85025; 85610; 87040; 87086; 93005; 93041; 96360; 96374; 99285

== ENCOUNTER 2018-10-02 01:01 | Emergency (ER) | payer MEDICARE ==
--- NOTE | 2018-10-02 01:10 | ERPHSYRPT ---
- History of Present Illness Time Seen by Provider: 10/02/18 01:07 Source: patient, family Exam Limitations: clinical condition Timing/Duration: today Activities at Onset: none Severity of Dyspnea-Max: moderate Severity of Dyspnea-Current: moderate Possible Cause: no prior episodes Modifying Factors: Improves With: nothing Associated Symptoms: denies symptoms Allergies/Adverse Reactions: No Known Drug Allergies Allergy (Verified 10/02/18 01:10) Home Medications: Aspirin 81 gm Chew [Baby Aspirin 81 mg Chew] 81 mg PO DAILY 06/10/14 [ History] Clopidogrel Bisulfate 75 mg [PLAVIX 75 MG Tablet] 75 mg PO DAILY 06/10/14 [History] Simvastatin 20 mg PO DAILY 06/10/14 [History] Oxybutynin Chloride Xl 5 mg [Ditropan XL 5 MG] 10 mg PO DAILY 11/03/15 [ History] Pantoprazole Sodium [Protonix] 40 mg PO BID 11/03/15 [History] Docusate Sodium 100 mg [Colace 100 MG] 100 mg PO BID PRN 08/24/18 [History ] Gabapentin 300 mg PO BID 08/24/18 [History] Losartan Potassium [Cozaar] 25 mg PO DAILY 08/24/18 [History] Memantine HCl 10 mg PO DAILY 08/24/18 [History] Metformin HCl 500 mg [Glucophage 500 MG] 500 mg PO BIDWM 08/24/18 [History ] Quetiapine Fumarate 25 mg [Seroquel 25 MG] 25 mg PO BID 08/24/18 [History] Carbidopa/Levodopa [Carbidopa-Levo 25-250 mg Odt] 1 each PO TID 09/03/18 [ History] Hx Tetanus, Diphtheria Vaccination/Date Given: Yes Hx Influenza Vaccination/Date Given: Yes Hx Pneumococcal Vaccination/Date Given: Yes - Review of Systems Constitutional: No Fever, No Chills Eyes: No Symptoms Ears, Nose, & Throat: No Symptoms Respiratory: Dyspnea, No Cough Cardiac: No Chest Pain, No Edema, No Syncope Abdominal/Gastrointestinal: No Abdominal Pain, No Nausea, No Vomiting, No Diarrhea Genitourinary Symptoms: No Dysuria Musculoskeletal: No Back Pain, No Neck Pain Skin: No Rash Neurological: No Dizziness, No Focal Weakness, No Sensory Changes Psychological: No Symptoms Endocrine: No Symptoms All Other Systems: Reviewed and Negative - Past Medical History Pertinent Past Medical History: Yes Neurological History: Stroke ENT History: Cataracts Cardiac History: High Cholesterol, Hypertension Respiratory History: No Pertinent History Endocrine Medical History: Diabetes Type II Musculoskeletal History: Arthritis GI Medical History: No Pertinent History History: No Pertinent History Psycho-Social History: No Pertinent History Male Reproductive Disorders: No Pertinent History Other Medical History: Parkinsons - Past Surgical History Past Surgical History: Yes Neuro Surgical History: No Pertinent History Cardiac: CABG Respiratory: No Pertinent History Gastrointestinal: No Pertinent History Genitourinary: No Pertinent History Musculoskeletal: Orthopedic Surgery Male Surgical History: No Pertinent History Other Surgical History: R SHOULDER SURGERY, LEFT hip - Social History Smoking Status: Never smoker Exposure to second hand smoke: No Alcohol Use: None Drug Use: none Patient Lives Alone: No Significant Family History: no pertinent family hx - Nursing Vital Signs Nursing Vital Signs: Initial Vital Signs Temperature 97.8 F 10/02/18 01:11 Pulse Rate 75 10/02/18 01:11 Respiratory Rate 18 10/02/18 01:11 Blood Pressure 124/76 10/02/18 01:11 O2 Sat by Pulse Oximetry 93 L 10/02/18 01:11 - Physical Exam General Appearance: moderate distress, lethargy Eye Exam: PERRL/EOMI Neck Exam: normal inspection, supple Respiratory Exam: diminished breath sounds Cardiovascular/Chest Exam: normal heart sounds, regular rate/rhythm Abdominal/Gastrointestinal Exam: soft, No tenderness, No distention, No mass Extremity Exam: non-tender, normal range of motion, normal inspection, no calf tenderness, no pedal edema Neurologic Exam: alert, oriented x 3, cooperative, financial operations clerk II-XII nml as tested, sensation nml, No motor deficits Skin Exam: normal color, warm, No dry SpO2 Interpretation: borderline oxygenation SpO2: 93 O2 Delivery: Nasal Cannula - Course Nursing assessment & vital signs reviewed: Yes EKG Interpreted by Me: Sinus Rhythm, NORMAL AXIS, Non-specific ST Changes - Radiology Exams Chest X-ray Interpretation: Reviewed by me, Other (interstitial changes adn granulomata) Ordered Tests: Active Orders 24 hr Category Date Time Status Timber Setter STAT Care 10/02/18 01:11 Active EKG-ER Only STAT Care 10/02/18 01:10 Active IV Insertion STAT Care 10/02/18 01:10 Active Pulse Oximetry (ED) STAT Care 10/02/18 01:10 Active CHEST 1 VIEW (PORTABLE) Stat Exams 10/02/18 01:11 Taken CBC W DIFF Stat Lab 10/02/18 02:21 Completed CMP Stat Lab 10/02/18 02:21 Completed D-DIMER QUANTITATION Stat Lab 10/02/18 02:21 Completed Lactic Acid Stat Lab 10/02/18 02:30 Completed NT PRO BNP Stat Lab 10/02/18 02:21 Completed TROPONIN Q3H Lab 10/02/18 02:21 Completed TROPONIN Q3H Lab 10/02/18 04:15 Ordered TROPONIN Q3H Lab 10/02/18 07:15 Ordered TROPONIN Q3H Lab 10/02/18 10:15 Ordered TROPONIN Q3H Lab 10/02/18 13:15 Ordered UA W/RFX UR CULTURE Stat Lab 10/02/18 01:10 Uncollected Medication Summary Generic Name Dose Route Start Last Admin Trade Name Freq PRN Reason Stop Dose Admin Sodium Chloride 1,000 mls @ 100 mls/hr 10/02/18 01:15 10/02/18 02:00 Sodium Chloride 0.9% 1000 Ml IV 11/01/18 01:14 100 mls/hr .Q10H POOJA Administration Discontinued Medications Generic Name Dose Route Start Last Admin Trade Name Freq PRN Reason Stop Dose Admin Ceftriaxone Sodium/Dextrose 1 g in 50 mls @ 100 mls/hr 10/02/18 02:42 03:15 Rocephin 1 Gm-D5w 50 Ml Bag IV 10/02/18 03:11 100 mls/hr STAT STA 100 mls/hr Administration Ceftriaxone Sodium/Dextrose Confirm 10/02/18 03:03 Rocephin 1 Gm-D5w 50 Ml Bag Administered 10/02/18 03:04 Dose 1 g in 50 mls @ ud IV .K-MED ONE Lab/Rad Data: Laboratory Result Diagrams 10/02/18 02:21 10/02/18 02:21 Laboratory Results 10/02/18 10/02/18 10/02/18 Range/Units 02:30 02:21 02:21 WBC (4.0-10.5) K/mm3 RBC (4.1-5.6) M/mm3 Hgb (12.5-18.0) gm/dl Hct (42-50) % MCV (78-100) fl MCH (26-32) pg MCHC (32-36) g/dl RDW (11.5-14.0) % Plt Count (150-450) K/mm3 MPV (6-9.5) fl Gran % (36.0-66.0) % Eos # (Auto) (0-0.5) Absolute Lymphs (auto) (1.0-4.6) Absolute Monos (auto) (0.0-1.3) Lymphocytes % (24.0-44.0) % Monocytes % (0.0-12.0) % Eosinophils % (0.00-5.0) % Basophils % (0.0-0.4) % Absolute Granulocytes (1.4-6.9) Basophils # (0-0.4) D-Dimer (215-500) ng/mL Sodium (137-145) mmol/L Potassium (3.5-5.1) mmol/L Chloride (98-107) mmol/L Carbon Dioxide (22-30) mmol/L Anion Gap (5-15) MEQ/L BUN (9-20) mg/dL Creatinine (0.66-1.25) mg/dL Estimated GFR ML/MIN Glucose (74-106) mg/dL Lactic Acid 1.8 (0.4-2.0) Calcium (8.4-10.2) mg/dL Total Bilirubin (0.2-1.3) mg/dL AST (17-59) U/L ALT (0-50) U/L Alkaline Phosphatase (38-126) U/L Troponin I 1.810 H* (0.000-0.034) ng/mL NT-Pro-B Natriuret Pep (0-1800) pg/mL Serum Total Protein (6.3-8.2) g/dL Albumin (3.5-5.0) g/dL Influenza Type A Ag NEGATIVE (NEGATIVE) Influenza Type B Ag NEGATIVE (NEGATIVE) RSV (PCR) NEGATIVE (Negative) 10/02/18 10/02/18 10/02/18 Range/Units 02:21 02:21 02:21 WBC 13.2 H (4.0-10.5) K/mm3 RBC 3.98 L (4.1-5.6) M/mm3 Hgb 12.1 L (12.5-18.0) gm/dl Hct 38.8 L (42-50) % MCV 97.5 (78-100) fl MCH 30.4 (26-32) pg MCHC 31.2 L (32-36) g/dl RDW 14.1 H (11.5-14.0) % Plt Count 201 (150-450) K/mm3 MPV 11.6 H (6-9.5) fl Gran % 88.5 H (36.0-66.0) % Eos # (Auto) 0 (0-0.5) Absolute Lymphs (auto) 0.99 L (1.0-4.6) Absolute Monos (auto) 0.52 (0.0-1.3) Lymphocytes % 7.5 L (24.0-44.0) % Monocytes % 3.9 (0.0-12.0) % Eosinophils % 0.0 (0.00-5.0) % Basophils % 0.1 (0.0-0.4) % Absolute Granulocytes 11.71 H (1.4-6.9) Basophils # 0.01 (0-0.4) D-Dimer 1215 H* (215-500) ng/mL Sodium 144 (137-145) mmol/L Potassium 4.5 (3.5-5.1) mmol/L Chloride 101 (98-107) mmol/L Carbon Dioxide 32 H (22-30) mmol/L Anion Gap 15.1 H (5-15) MEQ/L BUN 61 H (9-20) mg/dL Creatinine 2.56 H (0.66-1.25) mg/dL Estimated GFR 25.6 ML/MIN Glucose 142 H (74-106) mg/dL Lactic Acid (0.4-2.0) Calcium 10.0 (8.4-10.2) mg/dL Total Bilirubin 0.50 (0.2-1.3) mg/dL AST 46 (17-59) U/L ALT 11 (0-50) U/L Alkaline Phosphatase 87 (38-126) U/L Troponin I (0.000-0.034) ng/mL NT-Pro-B Natriuret Pep 3910 H (0-1800) pg/mL Serum Total Protein 7.1 (6.3-8.2) g/dL Albumin 3.5 (3.5-5.0) g/dL Influenza Type A Ag (NEGATIVE) Influenza Type B Ag (NEGATIVE) RSV (PCR) (Negative) - Progress Progress: improved, re-examined Air Movement: good Progress Note: 10/02/18 04:02 discussed with ER and transfer center and family and all agree best for pt to transfer to [facility] for further cardio eval and other comorbidities; Blood Culture(s) Obtained: No Antibiotics given: Yes Discussed with : Other ([facility] ) Counseled pt/family regarding: lab results, diagnosis, need for follow-up, rad results - Departure Departure Disposition: Transfer Clinical Impression: Parkinsons, History of coronary atherosclerosis, elevated Troponin and BNP, elevated D Dimer, Renal failure Condition: Good Critical Care Time: No Referrals: SAHARA TRIANA MD [Primary Care Provider] -
[2018-10-02] MEDS ORDERED: Sodium Chloride 0.9% 1000 ML 1,000 ML ONE (01:58)
[2018-10-02] MEDS: Sodium Chloride 0.9% 1000 ML 1,000 ML IV SCH (02:00)
[2018-10-02 02:26] LABS: BASOPHIL % 0.1 % (0.0-0.4); Basophil (Absolute #) 0.01 (0-0.4); Eosinophil (Absolute #) 0 (0-0.5); Granulocyte Absolute (ANC) 11.71 (1.4-6.9); Granulocytes % 88.5 % (36.0-66.0); Hematocrit 38.8 % (42-50); Hemoglobin 12.1 gm/dl (12.5-18.0); Lymphocyte (Absolute #) 0.99 (1.0-4.6); Lymphocytes % 7.5 % (24.0-44.0); Mean Cell Volume 97.5 fl (78-100); Mean Corpuscular Hemoglobin 30.4 pg (26-32); Mean Corpuscular Hgb Concent. 31.2 g/dl (32-36); Mean Platelet Volume 11.6 fl (6-9.5); Monocyte (Absolute #) 0.52 (0.0-1.3); Monocytes % 3.9 % (0.0-12.0); Platelet Count 201 K/mm3 (150-450); Red Blood Count 3.98 M/mm3 (4.1-5.6); Red Cell Distribution Width 14.1 % (11.5-14.0); White Blood Count 13.2 K/mm3 (4.0-10.5)
[2018-10-02 02:35] LABS: ALBUMIN 3.5 g/dL (3.5-5.0); ANION GAP 15.1 MEQ/L (5-15); BILIRUBIN,TOTAL 0.5 mg/dL (0.2-1.3); Creatinine 1 2.56 mg/dL (0.66-1.25); Potassium 4.5 mmol/L (3.5-5.1); Total Protein 7.1 g/dL (6.3-8.2)
[2018-10-02] MEDS ORDERED: ROCEPHIN 1 Gm-D5w 50 ml Bag** 1 G/50 ML IVPB IV ONE (03:03)
[2018-10-02 03:05] LABS: INFLUENZA A NEGATIVE (NEGATIVE); INFLUENZA B NEGATIVE (NEGATIVE); RESPIRATORY SYNCTIAL VIRUS NEGATIVE (Negative)
[2018-10-02] MEDS: ROCEPHIN 1 Gm-D5w 50 ml Bag** 1 G/50 ML IVPB IV STA (03:15)
[2018-10-02 04:24] VITALS: BP 138/72; PULSE 78; O2SAT 99
--- NOTE | 2018-10-02 07:35 | XRAY ---
Indication: Short of breath. Comparison: September 13, 2018. Portable chest remains hyperinflated without focal infiltrate, consolidation, or large effusion. Heart is not enlarged again with CABG surgery. No new/acute findings.
== END 2018-10-02 04:50 | disposition short-term general hospital (02) ==
LOC: ED 01:01
DX: G20 Parkinson's disease (principal); I25.810 Atherosclerosis of coronary artery bypass graft(s) without angina pectoris; R74.8 Abnormal levels of other serum enzymes; R79.89 Other specified abnormal findings of blood chemistry; N17.0 Acute kidney failure with tubular necrosis; Z79.899 Other long term (current) drug therapy; I10 Essential (primary) hypertension; M19.90 Unspecified osteoarthritis, unspecified site
CPT/HCPCS: 36000; 36415; 71045; 80053; 83605; 83880; 84484; 85025; 85379; 87631; 93005; 93041; 96360; 96361; 96365; 99285; J0696

== ENCOUNTER 2018-11-05 08:50 | Observation (INO) | payer MEDICARE ==
--- NOTE | 2018-11-05 09:13 | ERPHSYRPT ---
- History of Present Illness Time Seen by Provider: 11/05/18 09:11 Source: patient, alf records Exam Limitations: no limitations Patient Subjective Stated Complaint: Clogged G-tube Triage Nursing Assessment: Patient brought into ED per EMS and transferred to bed with assist of 2. Patient came from [facility] for a clogged G- tube. Patient denies pain or discomfort. Patient's nurse stated this am they were not able to get tube to flush after trying several times. Patient states he has had g-tube for about one month and has had several problems with it flushing. Patient's abdomen flat and soft with positive BS X 4. Physician History: 83-year-old white male arrives from alf with complaint that his G-tube is clogged. He denies any other complaints. Past medical history includes CVA, cataracts, hyperlipidemia, high blood pressure, diabetes type 2, arthritis, Parkinson's, chronic renal failure. Past surgical history includes right shoulder surgery, left hip surgery Timing/Duration: today Severity: mild Modifying Factors: Improves With: nothing Associated Symptoms: No nausea, No vomiting, No abdominal pain, No shortness of breath, No heartburn, No cough, No chills, No chest pain, No fever, No headaches , No loss of appetite, No malaise, No rash, No syncope, No seizure, No weakness Allergies/Adverse Reactions: No Known Drug Allergies Allergy (Verified 11/05/18 09:00) Home Medications: Aspirin 81 gm Chew [Baby Aspirin 81 mg Chew] 81 mg PO DAILY 06/10/14 [ History] Clopidogrel Bisulfate 75 mg [PLAVIX 75 MG Tablet] 75 mg PO DAILY 06/10/14 [History] Simvastatin 20 mg PO DAILY 06/10/14 [History] Oxybutynin Chloride Xl 5 mg [Ditropan XL 5 MG] 10 mg PO DAILY 11/03/15 [ History] Pantoprazole Sodium [Protonix] 40 mg PO BID 11/03/15 [History] Docusate Sodium 100 mg [Colace 100 MG] 100 mg PO BID PRN 08/24/18 [History ] Gabapentin 300 mg PO BID 08/24/18 [History] Losartan Potassium [Cozaar] 25 mg PO DAILY 08/24/18 [History] Memantine HCl 10 mg PO DAILY 08/24/18 [History] Metformin HCl 500 mg [Glucophage 500 MG] 500 mg PO BIDWM 08/24/18 [History ] Quetiapine Fumarate 25 mg [Seroquel 25 MG] 25 mg PO BID 08/24/18 [History] Carbidopa/Levodopa [Carbidopa-Levo 25-250 mg Odt] 1 each PO TID 09/03/18 [ History] Hx Tetanus, Diphtheria Vaccination/Date Given: Yes Hx Influenza Vaccination/Date Given: Yes Hx Pneumococcal Vaccination/Date Given: No Immunizations Up to Date: Yes - Review of Systems Constitutional: No Fever, No Chills Eyes: No Symptoms Ears, Nose, & Throat: No Symptoms Respiratory: No Cough, No Dyspnea Cardiac: No Chest Pain, No Edema, No Syncope Abdominal/Gastrointestinal: Other (clogged G-tube), No Abdominal Pain, No Nausea , No Vomiting, No Diarrhea Genitourinary Symptoms: No Dysuria Musculoskeletal: No Back Pain, No Neck Pain Skin: No Rash Neurological: No Dizziness, No Focal Weakness, No Sensory Changes Psychological: No Symptoms Endocrine: No Symptoms All Other Systems: Reviewed and Negative - Past Medical History Pertinent Past Medical History: Yes Neurological History: Stroke ENT History: Cataracts Cardiac History: High Cholesterol, Hypertension Respiratory History: No Pertinent History Endocrine Medical History: Diabetes Type II Musculoskeletal History: Arthritis GI Medical History: No Pertinent History History: No Pertinent History Psycho-Social History: No Pertinent History Male Reproductive Disorders: No Pertinent History Other Medical History: Parkinsons - Past Surgical History Past Surgical History: Yes Neuro Surgical History: No Pertinent History Cardiac: CABG Respiratory: No Pertinent History Gastrointestinal: No Pertinent History Genitourinary: No Pertinent History Musculoskeletal: Orthopedic Surgery Male Surgical History: No Pertinent History Other Surgical History: R SHOULDER SURGERY, LEFT hip - Social History Smoking Status: Never smoker Exposure to second hand smoke: No Alcohol Use: None Drug Use: none Patient Lives Alone: No (Herreraмария Bautista) Significant Family History: no pertinent family hx - Nursing Vital Signs Nursing Vital Signs: Initial Vital Signs Temperature 99.0 F 11/05/18 09:00 Pulse Rate 81 11/05/18 09:00 Respiratory Rate 18 11/05/18 09:00 Blood Pressure 146/76 11/05/18 09:00 O2 Sat by Pulse Oximetry 98 11/05/18 09:00 Pain Scale Pain Intensity 0 - Physical Exam General Appearance: no apparent distress, alert Eye Exam: PERRL/EOMI, eyes nml inspection Ears, Nose, Throat Exam: normal ENT inspection, TMs normal, pharynx normal, moist mucous membranes Neck Exam: normal inspection, non-tender, supple, full range of motion Respiratory Exam: normal breath sounds, lungs clear, No respiratory distress Cardiovascular Exam: regular rate/rhythm, normal heart sounds, normal peripheral pulses, capillary refill <2 sec Gastrointestinal/Abdomen Exam: soft, normal bowel sounds, other (G-tube in place no erythema ostomy site), No tenderness, No mass Back Exam: normal inspection, normal range of motion, No CVA tenderness, No vertebral tenderness Extremity Exam: normal inspection, normal range of motion, pelvis stable Neurologic Exam: alert, oriented x 3, cooperative, splitting machine tender II-XII nml as tested, normal mood/affect, nml cerebellar function, nml station & gait, sensation nml, No motor deficits Skin Exam: normal color, warm, dry, No rash Lymphatic Exam: No adenopathy SpO2 Interpretation: normal (98%) SpO2: 98 Ordered Tests: Active Orders 24 hr Category Date Time Status IV Insertion STAT Care 11/05/18 11:18 Active CBC W DIFF Stat Lab 11/05/18 11:18 Ordered CMP Stat Lab 11/05/18 11:18 Ordered - Progress Progress: improved Progress Note: 11/05/18 11:18 83-year-old white male with history of CVA, cataracts, hyperlipidemia, high blood pressure, diabetes type 2, arthritis, Parkinson's, chronic renal failure. Patient sent from the alf with complaints of patient's G-tube is occluded. Patient with a G-tube which has a flat oval portion attached to the skin approximately 1 cm away from the ostomy site. I have tried to find out what type of G-tube this is an I could not find this in the patient's records. I contacted Dr. Sanches, surgeon on-call he recommends that we place patient on observation. And that he will see the patient this afternoon. I talked with Dr. Davies will place patient on observation patient receives his meds and nutrition through his G-tube. Will obtain CBC CMP and start normal saline at 100 mL per hour. - Departure Departure Disposition: Observation Clinical Impression: occluded G tube Condition: Fair Critical Care Time: No Referrals: FRANK BAUTISTA [Primary Care Provider] -
[2018-11-05] MEDS ORDERED: Sodium Chloride 0.9% 1000 ML 1,000 ML IV SCH ×2 (11:30)
[2018-11-05] MEDS ORDERED: Sodium Chloride 0.9% 1000 ML 1,000 ML ONE (11:37)
[2018-11-05 12:13] LABS: BASOPHIL % 0.2 % (0.0-0.4); Basophil (Absolute #) 0.02 (0-0.4); Eosinophil % 0.5 % (0.00-5.0); Eosinophil (Absolute #) 0.07 (0-0.5); Granulocyte Absolute (ANC) 11.34 (1.4-6.9); Granulocytes % 85.8 % (36.0-66.0); Hematocrit 41.7 % (42-50); Hemoglobin 13.5 gm/dl (12.5-18.0); Lymphocyte (Absolute #) 1.17 (1.0-4.6); Lymphocytes % 8.9 % (24.0-44.0); Mean Cell Volume 97.4 fl (78-100); Mean Corpuscular Hemoglobin 31.5 pg (26-32); Mean Corpuscular Hgb Concent. 32.4 g/dl (32-36); Mean Platelet Volume 12.1 fl (6-9.5); Monocyte (Absolute #) 0.61 (0.0-1.3); Monocytes % 4.6 % (0.0-12.0); Platelet Count 213 K/mm3 (150-450); Red Blood Count 4.28 M/mm3 (4.1-5.6); Red Cell Distribution Width 14.2 % (11.5-14.0); White Blood Count 13.2 K/mm3 (4.0-10.5)
[2018-11-05 12:24] LABS: ALBUMIN 4.1 g/dL (3.5-5.0); ANION GAP 15.2 MEQ/L (5-15); BILIRUBIN,TOTAL 0.7 mg/dL (0.2-1.3); Calcium 10.4 mg/dL (8.4-10.2); Creatinine 1 1.36 mg/dL (0.66-1.25); Potassium 4.6 mmol/L (3.5-5.1)
[2018-11-05] MEDS ORDERED: DIPRIVAN 200 MG/20 ML IV ONE (14:52)
[2018-11-05] MEDS ORDERED: PROVENTIL 2.5 MG/3 ML NEB IH SCH ×2 (16:00→19:00)
[2018-11-05] MEDS ORDERED: PROVENTIL Solution 2.5 MG/0.5 ML IH ONE (16:47)
--- NOTE | 2018-11-05 18:57 | PCM.SSS ---
History of Present Illness - Chief Complaint Chief Complaint: occluded g-tube History of Present Illness: is a 83 year old male pt from [facility] with DM II, OA, and Parkinson' s disease who came in to ER today with clogged G-tube. It was placed apparently October 07 by the trauma GI surgeon (pt and daughter are unsure name of the surgeon) after pt was in the hospital with pneumonia. Pt states there was trouble frequently with flushing the tube, although the daughter was unaware of such trouble. Dr. Sanches saw the pt and replaced the G-tube today. He has cleared the pt for return to [facility]TC[facility]. Pt recently finished abx for pneumonia. He has trouble clearing his airway due to weakness secondary to Parkinson's disease. CXR done today is negative for acute process. RN to try flushing tube; if flushing well, will return pt to LTCF on home meds. - Review of Systems Constitutional: Weakness, Weight Loss Respiratory: Cough, Short Of Breath Neurological: Speech Changes (chronic due to weakness) All Other Systems: Reviewed and Negative Medications & Allergies Home Medications: Home Medication List Aspirin 81 gm Chew [Baby Aspirin 81 mg Chew] 81 mg PEG DAILY 06/10/14 [ History Confirmed 11/05/18] Clopidogrel Bisulfate 75 mg [PLAVIX 75 MG Tablet] 75 mg PEG DAILY [History Confirmed 11/05/18] Simvastatin 20 mg PEG DAILY 06/10/14 [History Confirmed 11/05/18] Oxybutynin Chloride Xl 5 mg [Ditropan XL 5 MG] 10 mg PEG DAILY 11/03/15 [ History Confirmed 11/05/18] Pantoprazole Sodium [Protonix] 40 mg PEG BID 11/03/15 [History Confirmed ] Docusate Sodium 100 mg [Colace 100 MG] 100 mg PEG BID PRN 08/24/18 [ History Confirmed 11/05/18] Gabapentin 300 mg PEG BID 08/24/18 [History Confirmed 11/05/18] Losartan Potassium [Cozaar] 25 mg PEG DAILY 08/24/18 [History Confirmed 11/05/18 ] Memantine HCl 10 mg PEG DAILY 08/24/18 [History Confirmed 11/05/18] Metformin HCl 500 mg [Glucophage 500 MG] 500 mg PEG BIDWM 08/24/18 [ History Confirmed 11/05/18] Quetiapine Fumarate 25 mg [Seroquel 25 MG] 25 mg PEG BID 08/24/18 [ History Confirmed 11/05/18] Carbidopa/Levodopa [Carbidopa-Levo 25-250 mg Odt] 25 - 250 mg PEG TID 09/03/18 [ History Confirmed 11/05/18] Acetaminophen 325 mg [Tylenol 325 mg] 650 mg PEG QID PRN 11/05/18 [ History Confirmed 11/05/18] Hydrochlorothiazide 12.5 mg PEG DAILY 11/05/18 [History Confirmed 11/05/18] Ipratropium/Albuterol Sulfate [Iprat-Albut 0.5-3(2.5) mg/3 ml] 3 ml IH QID 11/05 [History Confirmed 11/05/18] Lactose-Reduced Food/Fiber [Jevity 1.2 Gallo Liquid] 60 ml PEG 11/05/18 [History] Metoprolol Succinate 25 mg Xl* [Toprol-Xl 25MG Tablets] 50 mg PEG DAILY 11/05 [History Confirmed 11/05/18] Polyethylene Glycol 3350 17 gm [Miralax Powder 17GM PACKET] 17 gm PEG DAILY 11/05/18 [History Confirmed 11/05/18] Allergies/Adverse Reactions: Allergies Allergy/AdvReac Type Severity Reaction Status Date / Time No Known Drug Allergies Allergy Verified 11/05/18 09:00 - Past Medical History Past Medical History: Yes Neurological History: Stroke ENT History: Cataracts Cardiac History: High Cholesterol, Hypertension Respiratory History: No Pertinent History Endocrine Medical History: Diabetes Type II Musculoskelatal History: Arthritis GI Medical History: No Pertinent History History: No Pertinent History Pyscho-Social History: No Pertinent History Male Reproductive Disorders: No Pertinent History Comment: Parkinsons, esophageal stricture, G-Tube - Past Surgical History Past Surgical History: Yes Neuro Surgical History: No Pertinent History Cardiac History: CABG Respiratory Surgery: No Pertinent History GI Surgical History: No Pertinent History Genitourinary Surgical Hx: No Pertinent History Musculskeletal Surgical Hx: Orthopedic Surgery Male Surgical History: No Pertinent History Other Surgical History: R SHOULDER SURGERY, LEFT hip - Social History Smoking Status: Never smoker Exposure to second hand smoke: No Alcohol: None Drug Use: none Significant Family History: no pertinent family hx - Physical Exam Vital Signs: Vital Signs - 24 hr Temp Pulse Resp BP Pulse Ox 11/05/18 16:57 78 16 94 L 11/05/18 16:00 98.0 F 77 16 144/67 95 11/05/18 13:22 99 F 80 16 132/61 96 11/05/18 13:13 99 F 80 16 132/61 96 11/05/18 13:09 99 F 80 16 132/61 96 11/05/18 12:13 82 18 139/75 98 11/05/18 11:21 98 11/05/18 10:51 70 18 149/82 97 11/05/18 09:53 84 18 150/80 99 11/05/18 09:00 99.0 F 81 18 146/76 98 General Appearance: no apparent distress, cachetic Neurologic Exam: alert, cooperative, other (answers questions. difficult to understand at time) Eye Exam: eyes nml inspection Ears, Nose, Throat Exam: moist mucous membranes Neck Exam: Brudzinski Respiratory Exam: diminished breath sounds, rhonchi (scattered throughout), No crackles/rales, No wheezing Cardiovascular Exam: regular rate/rhythm, normal heart sounds, No friction rub Gastrointestinal/Abdomen Exam: soft, normal bowel sounds, tenderness (mild diffuse), distention, rebound, other (G tube present in LUQ) Skin Exam: normal color, warm, dry, No rash Wound Assessment: Skin/Wound Assessment Wound/Incision Assessment Start: 11/05/18 17: 45 Text: Status: Active Freq: Q4H Protocol: Document 11/05/18 17:45 (Rec: 11/05/18 17:48 [id number]) Wound/Incision Assessment Left Anterior Abdomen Wound Assessment New Finding Wound Type PEG tube site Drainage Amount Minimal Drainage Description Sanguineous Drainage Odor None/Absent Surrounding Tissue E[place] Primary Dressing Gauze Pads Wound Photo Photo Taken No Results - Labs Lab/Micro Results: Accuchecks Date 11/05/18 Time 16:30 Accucheck Value: 159 Lab Results-Last 24 Hours 11/05/18 11/05/18 Range/Units 11:18 12:15 WBC 13.2 H (4.0-10.5) K/mm3 RBC 4.28 (4.1-5.6) M/mm3 Hgb 13.5 (12.5-18.0) gm/dl Hct 41.7 L (42-50) % MCV 97.4 (78-100) fl MCH 31.5 (26-32) pg MCHC 32.4 (32-36) g/dl RDW 14.2 H (11.5-14.0) % Plt Count 213 (150-450) K/mm3 MPV 12.1 H (6-9.5) fl Gran % 85.8 H (36.0-66.0) % Eos # (Auto) 0.07 (0-0.5) Absolute Lymphs (auto) 1.17 (1.0-4.6) Absolute Monos (auto) 0.61 (0.0-1.3) Lymphocytes % 8.9 L (24.0-44.0) % Monocytes % 4.6 (0.0-12.0) % Eosinophils % 0.5 (0.00-5.0) % Basophils % 0.2 (0.0-0.4) % Absolute Granulocytes 11.34 H (1.4-6.9) Basophils # 0.02 (0-0.4) Sodium 142 (137-145) mmol/L Potassium 4.6 (3.5-5.1) mmol/L Chloride 95 L (98-107) mmol/L Carbon Dioxide 36 H (22-30) mmol/L Anion Gap 15.2 H (5-15) MEQ/L BUN 48 H (9-20) mg/dL Creatinine 1.36 H (0.66-1.25) mg/dL Estimated GFR 53.2 ML/MIN Glucose 147 H (74-106) mg/dL Calcium 10.4 H (8.4-10.2) mg/dL Total Bilirubin 0.70 (0.2-1.3) mg/dL AST 23 (17-59) U/L ALT 19 (0-50) U/L Alkaline Phosphatase 113 (38-126) U/L Serum Total Protein 8.0 (6.3-8.2) g/dL Albumin 4.1 (3.5-5.0) g/dL Accuchecks Date 11/05/18 Time 16:30 Accucheck Value: 159 - Radiology Impressions Radiology Exams & Impressions: Radiology Procedures Category Date Time Status CHEST 1 VIEW (PORTABLE) Routine Exams 11/05/18 15:45 Taken - Other Procedures and Tests Respiratory Therapy 11/05/18 16:52 Respiratory Therapy Assessment DAILY Assessment/Plan (1) Gastrostomy tube obstruction Current Visit: Yes Status: Resolved Assessment & Plan: If tube can flush, ok to d/c back to [facility] Code(s): K94.29 - OTHER COMPLICATIONS OF GASTROSTOMY (2) Cough Current Visit: Yes Status: Acute Assessment & Plan: CXR nonacute. Pt unable to clear secretions well due to Parkinson's disease. Per daughter pt recently started on new regimen of nebulizer tx to combat respiratory issues. Code(s): R05 - COUGH (3) Generalized weakness Current Visit: No Status: Chronic Code(s): R53.1 - WEAKNESS (4) Chronic renal failure Current Visit: No Status: Chronic Qualifiers: Chronic kidney disease stage: stage 3 (moderate) Qualified Code(s): N18.3 - Chronic kidney disease, stage 3 (moderate) (5) Diabetes mellitus Current Visit: No Status: Chronic Qualifiers: Diabetes mellitus type: type 2 Diabetes mellitus long term care pharmacist insulin use: without [facility] use Diabetes mellitus complication status: with kidney complications Diabetes mellitus complication detail: with chronic kidney disease Chronic kidney disease stage: stage 3 (moderate) Qualified Code(s): E11.22 - Type 2 diabetes mellitus with diabetic chronic kidney disease; N18.3 - Chronic kidney disease, stage 3 (moderate) Code(s): E11.9 - TYPE 2 DIABETES MELLITUS WITHOUT COMPLICATIONS (6) Parkinson disease, symptomatic Current Visit: No Status: Chronic Code(s): G20 - PARKINSON'S DISEASE [facility] Summary - Hospital Course Hospital Course: Pt is 83 yo male with Parkinson's disease, OA, and recent pneumonia who was admitted with clogged G-tube. Tube was replaced by Dr. Sanches, thank you, and if flushing properly pt will be discharged back to [facility]TC[facility]. Pt was noted to have rough breath sounds throughout; CXR non acute. - Vitals & Intake/Output Vital Signs: Vital Signs Temperature 98.0 F 11/05/18 16:00 Pulse Rate 78 11/05/18 16:57 Respiratory Rate 16 11/05/18 16:57 Blood Pressure 144/67 11/05/18 16:00 O2 Sat by Pulse Oximetry 94 L 11/05/18 16:57 Intake & Output: Intake & Output 11/03/18 11/04/18 11/05/18 11/06/18 11:59 11:59 11:59 11:59 Intake Total 0 Balance 0 Weight 58.967 kg 58.967 kg - Lab Result Diagrams: 11/05/18 12:15 11/05/18 11:18 Lab Results-Last 24 Hrs: Accuchecks Date 11/05/18 Time 16:30 Accucheck Value: 159 Lab Results-Last 24 Hours 11/05/18 11/05/18 Range/Units 11:18 12:15 WBC 13.2 H (4.0-10.5) K/mm3 RBC 4.28 (4.1-5.6) M/mm3 Hgb 13.5 (12.5-18.0) gm/dl Hct 41.7 L (42-50) % MCV 97.4 (78-100) fl MCH 31.5 (26-32) pg MCHC 32.4 (32-36) g/dl RDW 14.2 H (11.5-14.0) % Plt Count 213 (150-450) K/mm3 MPV 12.1 H (6-9.5) fl Gran % 85.8 H (36.0-66.0) % Eos # (Auto) 0.07 (0-0.5) Absolute Lymphs (auto) 1.17 (1.0-4.6) Absolute Monos (auto) 0.61 (0.0-1.3) Lymphocytes % 8.9 L (24.0-44.0) % Monocytes % 4.6 (0.0-12.0) % Eosinophils % 0.5 (0.00-5.0) % Basophils % 0.2 (0.0-0.4) % Absolute Granulocytes 11.34 H (1.4-6.9) Basophils # 0.02 (0-0.4) Sodium 142 (137-145) mmol/L Potassium 4.6 (3.5-5.1) mmol/L Chloride 95 L (98-107) mmol/L Carbon Dioxide 36 H (22-30) mmol/L Anion Gap 15.2 H (5-15) MEQ/L BUN 48 H (9-20) mg/dL Creatinine 1.36 H (0.66-1.25) mg/dL Estimated GFR 53.2 ML/MIN Glucose 147 H (74-106) mg/dL Calcium 10.4 H (8.4-10.2) mg/dL Total Bilirubin 0.70 (0.2-1.3) mg/dL AST 23 (17-59) U/L ALT 19 (0-50) U/L Alkaline Phosphatase 113 (38-126) U/L Serum Total Protein 8.0 (6.3-8.2) g/dL Albumin 4.1 (3.5-5.0) g/dL Micro Results-Entire Visit: Accuchecks Date 11/05/18 Time 16:30 Accucheck Value: 159 - Radiology Exams Ordered Rad Exams-Entire Visit: Radiology Procedures Category Date Time Status CHEST 1 VIEW (PORTABLE) Routine Exams 11/05/18 15:45 Taken - Procedures and Test Procedures and Tests throughout Hospitalization: Therapy Orders & Screens 11/05/18 16:52 Respiratory Therapy Assessment DAILY Comment: Diagnosis: occluded g-tube - Discharge Disposition: Home, Self-Care Condition: Stable Prescriptions: Continue Clopidogrel Bisulfate 75 mg [PLAVIX 75 MG Tablet] 75 mg PEG DAILY Aspirin 81 gm Chew [Baby Aspirin 81 mg Chew] 81 mg PEG DAILY Simvastatin 20 mg PEG DAILY Oxybutynin Chloride Xl 5 mg [Ditropan XL 5 MG] 10 mg PEG DAILY Pantoprazole Sodium [Protonix] 40 mg PEG BID Metformin HCl 500 mg [Glucophage 500 MG] 500 mg PEG BIDWM Docusate Sodium 100 mg [Colace 100 MG] 100 mg PEG BID PRN PRN Reason: Constipation Losartan Potassium [Cozaar] 25 mg PEG DAILY Quetiapine Fumarate 25 mg [Seroquel 25 MG] 25 mg PEG BID Gabapentin 300 mg PEG BID Memantine HCl 10 mg PEG DAILY Carbidopa/Levodopa [Carbidopa-Levo 25-250 mg Odt] 25 - 250 mg PEG TID Metoprolol Succinate 25 mg Xl* [Toprol-Xl 25MG Tablets] 50 mg PEG DAILY Lactose-Reduced Food/Fiber [Jevity 1.2 Gallo Liquid] 60 ml PEG Acetaminophen 325 mg [Tylenol 325 mg] 650 mg PEG QID PRN Polyethylene Glycol 3350 17 gm [Miralax Powder 17GM PACKET] 17 gm PEG DAILY Hydrochlorothiazide 12.5 mg PEG DAILY Ipratropium/Albuterol Sulfate [Iprat-Albut 0.5-3(2.5) mg/3 ml] 3 ml IH QID Follow up with: FRANK DANIEL [Primary Care Provider] - 1 Week
[2018-11-05 19:31] VITALS: BP 142/74; PULSE 82; O2SAT 93
--- NOTE | 2018-11-05 21:21 | XRAY ---
Indication: Postop exam. Comparison: October 02, 2018. Portable chest remains clear. Heart is not enlarged again with CABG. No new/acute findings. Comment: Preliminary interpretation was made by [facility]. No discrepancy.
--- NOTE | 2018-11-07 10:17 | CONS ---
CONSULT DATE: 11/05/2018 REASON FOR CONSULT: Malfunctioning PEG tube. HISTORY: The patient is an 83 year-old who was seen through the emergency room transferred from alf because of the PEG tube that was placed two months ago apparently at [facility] plugged up and has not allowed him to be fed and no medicine can be passed through. PAST MEDICAL HISTORY: Positive for CVA, hyperlipidemia, cataract, high blood pressure, diabetes, arthritis, Parkinson's disease, chronic renal insufficiency. PAST SURGICAL HISTORY: Right shoulder surgery. Left hip surgery. PEG tube placed approximately two months ago. PHYSICAL EXAMINATION: The patient is alert. HEENT: Pupils equal and normoreactive. NECK: Supple. COR: Regular rhythm. ABDOMEN: Soft, nontender. He does have a 16 Turkish feeding tube that seems to be malfunctioning and is clogged in spite of the fact they tried multiple attempts to unclog it unsuccessfully. IMPRESSION: The plan is to proceed with PEG tube replacement. We will try to use the same opening. We will see if the tube is in the stomach and will try endoscopically to locate the GI location and eventually we will proceed with placement of a new tube.
--- NOTE | 2018-11-07 10:30 | OP ---
SURGERY DATE/TIME: 11/05/2018 1451 PREOPERATIVE DIAGNOSIS: Malfunctioning PEG tube. POSTOPERATIVE DIAGNOSIS: Malfunctioning PEG tube. PROCEDURE: EGD with PEG tube replacement. SURGEON: Keshawn Sanches M.D. ANESTHESIA: MAC. INDICATIONS: The patient is an 83 year-old alf patient who has a feeding tube and the PEG tube had been replaced a couple of months ago at [facility]. The patient had a CVA. The size of the tube was a 16 [place] and appeared to be clogging up because it had been used for feeding and for medicine. At this point he was sent back to the hospital from the alf because they were not able to use the PEG tube at all. DESCRIPTION OF PROCEDURE AND FINDINGS: He was taken to the endoscopy lab and was given MAC anesthesia. The scope introduced and advanced without difficulty in the upper esophagus down to the esophagogastric junction to the stomach. The PEG tube was noted in the stomach. The patient also had a button which was pulling the stomach against the abdominal wall this was removed and then the feeding tube was divided because it could not deflate the balloon completely. Using the snare the tube inside the stomach was retrieved and pulled out of the mouth. At this point the wire was passed to the old PEG tube site. It was retrieved with a snare and 20 Bahamian PEG tube was pulled back in position in the usual retrograde fashion. After this was done the PEG tube was secured in place with the appropriate rubber bumper and the scope was reinserted and good placement of the tube confirmed endoscopically. So this was done and the dressing was applied and the procedure was ended without complications.
== END 2018-11-05 21:10 | disposition home or self-care (01) ==
LOC: ED 08:50 → MED SURG 12:55
PROVIDERS: ADMIT Family Medicine; ATTEND Family Medicine
DX: K94.23 Gastrostomy malfunction (principal); M19.90 Unspecified osteoarthritis, unspecified site; I12.9 Hypertensive chronic kidney disease with stage 1 through stage 4 chronic kidney disease, or unspecified chronic kidney disease; E11.22 Type 2 diabetes mellitus with diabetic chronic kidney disease; N18.3 Chronic kidney disease, stage 3 (moderate); G20 Parkinson's disease; R05 Cough; R53.1 Weakness; R06.02 Shortness of breath; Z79.01 Long term (current) use of anticoagulants; Z79.82 Long term (current) use of aspirin; Z79.899 Other long term (current) drug therapy
CPT/HCPCS: 36000; 36415; 43246; 71045; 80053; 82962; 85025; 93268; 94640; 94762; 99285; G0378; 99100; J2704; J7609; A9270-GY

== ENCOUNTER 2018-12-22 04:03 | Emergency (ER) | payer MEDICARE ==
[2018-12-22 04:53] LABS: BASOPHIL % 0.3 % (0.0-0.4); Basophil (Absolute #) 0.02 (0-0.4); Eosinophil % 5.1 % (0.00-5.0); Eosinophil (Absolute #) 0.34 (0-0.5); Granulocytes % 64.8 % (36.0-66.0); Hematocrit 34.5 % (42-50); Hemoglobin 11.2 gm/dl (12.5-18.0); Lymphocyte (Absolute #) 1.39 (1.0-4.6); Lymphocytes % 20.9 % (24.0-44.0); Mean Cell Volume 98.6 fl (78-100); Mean Corpuscular Hgb Concent. 32.5 g/dl (32-36); Mean Platelet Volume 12.4 fl (6-9.5); Monocyte (Absolute #) 0.59 (0.0-1.3); Monocytes % 8.9 % (0.0-12.0); Platelet Count 164 K/mm3 (150-450); Red Cell Distribution Width 14.2 % (11.5-14.0); White Blood Count 6.6 K/mm3 (4.0-10.5)
[2018-12-22 05:04] LABS: ALBUMIN 3.6 g/dL (3.5-5.0); ANION GAP 11.8 MEQ/L (5-15); BILIRUBIN,TOTAL 0.6 mg/dL (0.2-1.3); Calcium 9.9 mg/dL (8.4-10.2); Creatinine 1 1.8 mg/dL (0.66-1.25); Potassium 4.6 mmol/L (3.5-5.1); Total Protein 6.8 g/dL (6.3-8.2)
--- NOTE | 2018-12-22 05:04 | ERPHSYRPT ---
- History of Present Illness Time Seen by Provider: 12/22/18 04:10 Source: EMS, other (POA voiced to two RN via telephone/speaker that he is a DNR. ) Exam Limitations: no limitations (At this time (during EMS transfer patient became alert) patient is alert and oriented to location. Able to verbalize and follow commands with neuro checks) Patient Subjective Stated Complaint: retirement reported that patient was difficult to arouse, lethargic and unable to raise arms himself which was not normal for him. patient c/o right lower abdominal pain Triage Nursing Assessment: Patient presents to ED per EMS, Alert to name, place , confused to time. no c/o pain or disc. resp easy, moist breath sounds noted. skin pink, warm and dry. resp easy. Physician History: Pt does not recall events tonight leading to EMS transfer - he is aware of his location "hospital" Time of Onset/Last Time Seen Normal: Earlier in the evening - Wednesday Timing/Duration: yesterday (Wednesday) Severity: mild (At this time - is apparently his baseline. POA confirmed that this has occurred several times in the past few months. ) Allergies/Adverse Reactions: No Known Drug Allergies Allergy (Verified 11/05/18 09:00) Home Medications: Aspirin 81 gm Chew [Baby Aspirin 81 mg Chew] 81 mg PEG DAILY 06/10/14 [ History] Clopidogrel Bisulfate 75 mg [PLAVIX 75 MG Tablet] 75 mg PEG DAILY [History] Simvastatin 20 mg PEG DAILY 06/10/14 [History] Docusate Sodium 100 mg [Colace 100 MG] 100 mg PEG BID PRN 08/24/18 [ History] Gabapentin 300 mg PEG BID 08/24/18 [History] Losartan Potassium [Cozaar] 25 mg PEG DAILY 08/24/18 [History] Memantine HCl 10 mg PEG DAILY 08/24/18 [History] Metformin HCl 500 mg [Glucophage 500 MG] 500 mg PEG BIDWM 08/24/18 [ History] Quetiapine Fumarate 25 mg [Seroquel 25 MG] 25 mg PEG BID 08/24/18 [History ] Carbidopa/Levodopa [Carbidopa-Levo 25-250 mg Odt] 25 - 250 mg PEG TID 09/03/18 [ History] Acetaminophen 325 mg [Tylenol 325 mg] 650 mg PEG QID PRN 11/05/18 [History ] Hydrochlorothiazide 12.5 mg PEG DAILY 11/05/18 [History] Ipratropium/Albuterol Sulfate [Iprat-Albut 0.5-3(2.5) mg/3 ml] 3 ml IH QID 11/05 [History] Lactose-Reduced Food/Fiber [Jevity 1.2 Gallo Liquid] 60 ml PEG 11/05/18 [History] Polyethylene Glycol 3350 17 gm [Miralax Powder 17GM PACKET] 17 gm PEG DAILY 11/05/18 [History] Metoprolol Tartrate 50 mg [Lopressor 50 MG] 50 mg PO BID 12/22/18 [History ] Hx Tetanus, Diphtheria Vaccination/Date Given: Yes Hx Influenza Vaccination/Date Given: Yes Hx Pneumococcal Vaccination/Date Given: No - Review of Systems Respiratory: No Symptoms All Other Systems: Unable due to dementia (Uncertain; patient, although alert to commands/responses Pt is a poor historian) - Past Medical History Pertinent Past Medical History: Yes Neurological History: Stroke ENT History: Cataracts Cardiac History: High Cholesterol, Hypertension Respiratory History: No Pertinent History Endocrine Medical History: Diabetes Type II Musculoskeletal History: Arthritis GI Medical History: No Pertinent History History: No Pertinent History Psycho-Social History: No Pertinent History Male Reproductive Disorders: No Pertinent History Other Medical History: Parkinsons, esophageal stricture, G-Tube - Past Surgical History Past Surgical History: Yes Neuro Surgical History: No Pertinent History Cardiac: CABG Respiratory: No Pertinent History Gastrointestinal: No Pertinent History Genitourinary: No Pertinent History Musculoskeletal: Orthopedic Surgery Male Surgical History: No Pertinent History Other Surgical History: R SHOULDER SURGERY, LEFT hip - Social History Smoking Status: Never smoker Exposure to second hand smoke: No Alcohol Use: None Drug Use: none Patient Lives Alone: No Significant Family History: no pertinent family hx - Nursing Vital Signs Nursing Vital Signs: Initial Vital Signs Temperature 97.7 F 12/22/18 04:05 Pulse Rate 72 12/22/18 04:05 Respiratory Rate 20 12/22/18 04:05 Blood Pressure 134/75 12/22/18 04:05 O2 Sat by Pulse Oximetry 100 12/22/18 04:05 Pain Scale Pain Intensity 0 - Mariama Coma Scale Best Eye Response ([place]): (4) open spontaneously Best Verbal Response ([place]): (5) oriented (to location) Best Motor Response ([place]): (6) obeys commands Mariama Total: 15 - Physical Exam General Appearance: no apparent distress Eye Exam: bilateral eye: normal inspection, PERRL, EOMI Ears, Nose, Throat Exam: dry mucous membranes (very dry; feeding thru PEG tube) Neck Exam: normal inspection, No carotid bruit Respiratory: normal breath sounds, lungs clear, airway intact Cardiovascular: regular rate/rhythm, normal heart sounds, No edema, No pulse deficit Gastrointestinal: soft, normal bowel sounds, No tenderness (Allows unrestricted palpation of abdomen; soft; no rebound), No guarding Extremity Exam: normal inspection Mental 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, 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 Exam: normal hearing, normal speech, PERRL Skin Exam: warm, dry, ecchymosis (forearms) SpO2 Interpretation: normal SpO2: 100 O2 Delivery: Room Air - Course Nursing assessment & vital signs reviewed: Yes Ordered Tests: Active Orders 24 hr Category Date Time Status CBC W DIFF Stat Lab 12/22/18 04:45 Completed CMP Stat Lab 12/22/18 04:45 Completed Lab/Rad Data: Laboratory Result Diagrams 12/22/18 04:45 12/22/18 04:45 Laboratory Results 12/22/18 12/22/18 Range/Units 04:45 04:45 WBC 6.6 (4.0-10.5) K/mm3 RBC 3.50 L (4.1-5.6) M/mm3 Hgb 11.2 L (12.5-18.0) gm/dl Hct 34.5 L (42-50) % MCV 98.6 (78-100) fl MCH 32.0 (26-32) pg MCHC 32.5 (32-36) g/dl RDW 14.2 H (11.5-14.0) % Plt Count 164 (150-450) K/mm3 MPV 12.4 H (6-9.5) fl Gran % 64.8 (36.0-66.0) % Eos # (Auto) 0.34 (0-0.5) Absolute Lymphs (auto) 1.39 (1.0-4.6) Absolute Monos (auto) 0.59 (0.0-1.3) Lymphocytes % 20.9 L (24.0-44.0) % Monocytes % 8.9 (0.0-12.0) % Eosinophils % 5.1 H (0.00-5.0) % Basophils % 0.3 (0.0-0.4) % Absolute Granulocytes 4.30 (1.4-6.9) Basophils # 0.02 (0-0.4) Sodium 139 (137-145) mmol/L Potassium 4.6 (3.5-5.1) mmol/L Chloride 98 (98-107) mmol/L Carbon Dioxide 34 H (22-30) mmol/L Anion Gap 11.8 (5-15) MEQ/L BUN 88 H (9-20) mg/dL Creatinine 1.80 H (0.66-1.25) mg/dL Estimated GFR 38.5 ML/MIN Glucose 114 H (74-106) mg/dL Calcium 9.9 (8.4-10.2) mg/dL Total Bilirubin 0.60 (0.2-1.3) mg/dL AST 20 (17-59) U/L ALT 12 (0-50) U/L Alkaline Phosphatase 124 (38-126) U/L Serum Total Protein 6.8 (6.3-8.2) g/dL Albumin 3.6 (3.5-5.0) g/dL - Progress Progress: improved Progress Note: 12/22/18 06:32 Patient awakes - kinows he is at "hospital" denies pain; squeezes my fingers on commend with each hand. Goes back to sleep. No Acute Distress. - Departure Departure Disposition: Home Clinical Impression: Lethargy Condition: Stable Critical Care Time: No Referrals: FRANK DANIEL [Primary Care Provider] - Additional Instructions: Resume usual medications and activities as tolerated.
[2018-12-22 07:39] VITALS: BP 129/69; PULSE 76; O2SAT 97
== END 2018-12-22 07:38 ==
LOC: ED 04:03
DX: R53.83 Other fatigue (principal)
CPT/HCPCS: 36415; 80053; 85025; 99284